=== PATIENT | male | born 1935 | race Caucasian/White ===

== ENCOUNTER → 2018-09-08 12:15 | Outpatient (CLI) | payer MEDICARE, OTHER, SELFPAY ==
[2018-09-08 13:56] LABS: Add Manual Diff / Slide Review NO; Basophils Percent Auto 0.6 % (0-2); Eosinophils Percent Auto 2.5 % (2-4); Hemoglobin 13.5 g/dL (13.5-17.5); Lymphocytes Percent Auto 27.6 % (25-40); Mean Corpuscular Hemoglobin 28.8 PG (26-34); Mean Corpuscular Volume 87.3 fL (80-100); Monocytes Percent Auto 8.2 % (3-14); Neutrophils Absolute Auto 3800 /uL (3000-5900); Neutrophils Percent Auto 61.1 % (50-75); Platelet Count 164 X10^3/uL (150-400); Red Blood Cell Count 4.69 X10^6/uL (4.5-5.9); Red Cell Distribution Width 14.8 % (11.6-14.8); White Blood Cell Count 6.2 X10^3/uL (4.5-11.0)
[2018-09-08 14:28] LABS: Erythrocyte Sedimentation Rate 7 MM/HR (0-15)
[2018-09-08 15:02] LABS: C-Reactive Protein Quant 0.6 mg/dL (<1.0)
== END ==
PROVIDERS: Visit Provider Orthopaedic Surgery
DX: M25.561 Pain in right knee (principal)
CPT/HCPCS: 36415; 85025; 85651; 86140

== ENCOUNTER 2018-09-09 23:05 | Inpatient (IN) | payer MEDICARE, OTHER, SELFPAY ==
[2018-09-09 23:23] VITALS: BP 144/86; PULSE 85; RESP 16; TEMP 36.4; O2SAT 95
[2018-09-09 23:33] VITALS: BP 144/86; PULSE 85; RESP 16; TEMP 36.4; O2SAT 95; BMI 28.3
--- NOTE | 2018-09-09 23:45 | DI.CT.S_ITS ---
PROCEDURE: CT ABDOMEN PELVIS W CON INDICATIONS: distention vomting TECHNIQUE: After the administration of oral and intravenous contrast, 5 mm thick sections acquired from the diaphragms to the symphysis. 5 mm thick coronal and sagittal reformats were performed. For radiation dose reduction, the following was used: automated exposure control, adjustment of mA and/or kV according to patient size. COMPARISON: [facility], CT, L-SPINE WITHOUT CONTRAST, 12/08/2016, 10:47. [facility], CT, ABD/PELVIS W/O CON (PNL), 05/29/2014, 19:58. FINDINGS: Image quality: Excellent. ABDOMEN: Lung bases: Lung bases are clear. Heart size is normal. Solid organs: Liver is normal in size and enhancement. Gallbladder contains a single 6 mm calcified gallstone. Biliary system is non-dilated. Pancreas enhances normally. Spleen is normal in size and enhancement. No adrenal nodules. Kidneys are normal in size and enhancement, without hydronephrosis. Peritoneum and bowel: Stomach and small bowel loops are moderately distended in caliber and normal in wall thickness. No free fluid or air. The colon is not distended. Nodes and vessels: No retroperitoneal or mesenteric adenopathy. Aorta and inferior vena cava are normal in caliber. Miscellaneous: No ventral hernias. PELVIS: Genitourinary: Bladder wall thickness is normal. Miscellaneous: No inguinal hernias or adenopathy. Small bowel distention extends into the pelvis, with a relative reduction in caliber of the right lower quadrant and no mass, volvulus, or intussusception is seen. Sigmoid diverticulosis without acute diverticulitis. Bones: No suspicious bony lesions. No vertebral body compression fractures. Extensive prior spine fusion surgery over the lumbosacral spine and thoracolumbar junction, previously present. IMPRESSION: Small bowel and gastric distention to the degree that a small bowel obstruction or stenosis is present, without identified etiology. As noted there is a transition between relative distention and a more normal caliber of the small bowel at the right lower quadrant. In this circumstance of no identified mass, volvulus, or intussusception adhesion (congenital or acquired) is generally the underlying etiology. A similar small bowel obstruction pattern was present in May of 2014. Extensive prior lumbosacral spine fusion surgery extending across the thoracolumbar junction. Cardiac pacemaking device leads noted over the right heart. Dictated by: Dennis Haddad M.D. on 09/10/2018 at 9:55 Approved by: Dennis Haddad M.D. on 09/10/2018 at 10:02
--- NOTE | 2018-09-09 23:46 | ED.ABDPAIN ---
HPI - Abdominal Pain General Chief Complaint: Abdominal Pain Stated Complaint: cant have bowel movement stomach swelled up Time Seen by Provider: 09/09/18 23:44 Source: patient Mode of arrival: ambulatory Limitations: no limitations History of Present Illness HPI narrative: Patient is an 83-year-old male who presents with abdominal pain and bloating. He said it started this evening around 5 or 6 cm he threw up once on his way over here and now actually feels much better. He said he had a normal bowel movement yesterday. He has a history of an appendectomy. He has not had fever or chills. No chest pain heart palpitations syncopal episodes. MD complaint: abdominal pain Related Data Home Medications Medication Instructions Recorded Confirmed ACETAMINOPHEN 325 mg PO BID #0 11/03/11 09/10/18 ASPIRIN (#ASPIRIN EC) 325 mg PO QDAY #0 11/03/11 09/10/18 DOCUSATE SODIUM (#DOCUSATE SODIUM) 100 mg PO PRN #0 11/03/11 09/10/18 doxazosin 8 mg PO QDAY #0 11/03/11 09/10/18 finasteride 5 mg PO QDAY #0 11/03/11 09/10/18 simvastatin 20 mg PO QDAY #0 11/03/11 09/10/18 Allergies Allergy/AdvReac Type Severity Reaction Status Date / Time No Known Allergies AdvReac Verified 09/10/18 03:26 Review of Systems Review of Systems GENERAL: Denies chills, fatigue, malaise, fever, sweats, travel HEENT: Denies sinus pain, ear pain, sore throat, difficulty swallowing, neck pain RESPIRATORY: Denies dyspnea, cough, wheezing, hemoptysis, sputum. CARDIOVASCULAR: Denies chest pain, palpitations, orthopnea, edema GASTROINTESTINAL: See HPI : Denies dysuria, frequency, incontinence, hematuria, urinary retention, flank pain. MUSCULOSKELETAL: Denies weakness, joint pain, or bony pain SKIN: No rash, no erythema, no pruritus NEUROLOGIC: Denies weakness, dizziness, headache, numbness, change in speech, confusion PSYCHIATRIC: No concerning psychosocial issues. 12 point review of systems is negative except for those stated above and HPI PFSH Medical History Bradycardia (Acute) Hyperlipidemia (Acute) Surgical History Status post appendectomy (Acute) Social History marital status: household members: spouse Smoking Status: Never smoker alcohol intake: never Comment: PCP: base Exam Initial Vital Signs Initial Vital Signs: Vital Signs Temperature 97.6 F 09/09/18 23:23 Pulse Rate 85 09/09/18 23:23 Respiratory Rate 16 09/09/18 23:23 Blood Pressure 144/86 H 09/09/18 23:23 Pulse Oximetry 95 09/09/18 23:23 GENERAL: Alert elderly acute distress HEENT: Head atraumatic,EOMI, pupils reactive PHARYNX: No erythema, no tonsillar exudate, no cervical lymphadenopathy CARDIOVASCULAR: Regular rate and rhythm without murmurs, rubs or gallops. RESPIRATORY: Breath sounds equal bilaterally, no wheezes rales or rhonchi. ABDOMEN: Distension soft, no localization pain very mild pain no guarding or rebound EXTREMITIES: Normal range of motion, no clubbing or edema. Neurovascularly intact NEUROLOGICAL: Alert and oriented x4.Normal gait and speech. Cranial nerves II through XII grossly intact. SKIN: Warm, dry, no laceration, no petechiae, no rashes or lesions. Course Orders Ordered: ED Orders 09/09/18 23:45 CT abdomen pelvis w con Stat 09/09/18 23:50 Complete Blood Count AUTO DIFF Stat Comprehensive Metabolic Panel Stat Lactate (Lactic Acid) Stat Lipase Stat 09/10/18 03:12 Consult to General Surgery Routine Sodium Chloride (Normal Saline 0.9%) 1,000 mls @ 150 mls/hr IV CONT MACARIO Morphine Sulfate (Morphine) 2 mg IV Q4HR PRN PRN Reason: Pain, Moderate (4-6) Ondansetron HCl (Zofran) 4 mg IV Q4HR PRN PRN Reason: Nausea And Vomiting Discontinued Medications Sodium Chloride (Normal Saline 0.9%) 1,000 mls @ 150 mls/hr IV CONT MACARIO Last Infusion: 09/10/18 03:01 Dose: 0 mls/hr Admin: 09/10/18 00:03 Dose: 150 mls/hr Influenza Virus Vaccine (Flu Vaccine) 0.5 ml IM .ONCE ONE Stop: 09/10/18 03:57 Ondansetron HCl (Zofran) 4 mg IV NOW ONE Stop: 09/09/18 23:46 Last Admin: 09/10/18 00:03 Dose: 4 mg Vital Signs - 8 hr 09/09/18 23:23 09/09/18 23:33 09/10/18 03:03 Temperature 97.6 F 97.6 F Pulse Rate 85 85 82 Respiratory Rate 16 16 18 Blood Pressure 144/86 H 154/80 H Blood Pressure [Left Arm] 144/86 H Pulse Oximetry 95 95 98 MDM - Abdominal Pain Lab Data Attestation: I reviewed the patient's lab results. Result diagrams: 09/09/18 23:50 09/09/18 23:50 Lab Results 09/09/18 09/09/18 09/09/18 Range/Units 23:50 23:50 23:50 WBC 13.6 H D (4.5-11.0) X10^3/uL RBC 4.83 (4.5-5.9) X10^6/uL Hgb 13.9 (13.5-17.5) g/dL Hct 42.5 (41-53) % MCV 88.0 (80-100) fL MCH 28.8 (26-34) PG MCHC 32.8 (30-36) % RDW 14.7 (11.6-14.8) % Plt Count 155 (150-400) X10^3/uL Neut % (Auto) 84.8 H D (50-75) % Lymph % (Auto) 7.3 L D (25-40) % [place] % (Auto) 6.3 (3-14) % Eos % (Auto) 1.2 L (2-4) % Baso % (Auto) 0.4 (0-2) % Neut # (Auto) 95155 H (9759-8262) /uL Sodium 142 (137-145) mmol/L Potassium 4.2 (3.4-5.1) mmol/L Chloride 103 (98-107) mmol/L Carbon Dioxide 30 (22-32) mmol/L BUN 24 H (9-20) mg/dL Creatinine 1.40 H (0.66-1.25) mg/dL Estimated GFR 48.6 L (>60) mL/min BUN/Creatinine Ratio 17.1 (6-22) Glucose 161 H (80-110) mg/dL Lactate 1.1 (0.7-2.1) mmol/L Calcium 9.6 (8.4-10.2) mg/dL Total Bilirubin 0.4 (0.2-1.3) mg/dL AST 23 (17-59) IU/L ALT 26 (21-72) IU/L Alkaline Phosphatase 55 (38-126) U/L Total Protein 7.0 (6.3-8.2) g/dL Albumin 4.4 (3.5-5.0) g/dL Globulin 2.6 (1.7-4.1) g/dL Albumin/Globulin Ratio 1.7 (1.0-2.8) Lipase 78 (23-300) U/L Imaging Data CT scan - abdomen: 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 Dilated fluid-filled loops of small bowel with scattered air-fluid levels in a pattern suggesting small bowel obstruction. Changes loya point appears to be in the right upper quadrant where there are at least 2 focal areas of abrupt decreasing caliber. These are best identified on coronal images 24 and 25 and coronal images 20 and 21. Due to position of 1 of the transition point axial image 21 rise a suspicion for possibility of internal herniation. Fluid contents are noted within the colon suggesting gastritis. ECG Data Attestation: I personally reviewed and interpreted this ECG as follows: Interpretation: Sinus rhythm diffuse T-wave inversion in with pacemaker spikes previous EKGs 2016 not present at that time. [facility] Narrative Medical decision making narrative: 02:[address] Bell accepts patient. NG tube is placed. About 600 mL out. Patient does have multiple T-wave inversions in his EKG. His no chest pain completely asymptomatic. He denies previous heart attack said his pacemaker was placed on after a surgery is with a noticed that he had 3 sec pauses. Discharge Plan Departure Patient Disposition: Admitted As Inpatient Clinical Impression: SBO (small bowel obstruction) Discharge Date/Time: 09/10/18 03:00 Interventions: ED Discharge Assessment Last Done: 09/10/18 03:03 Admit Date/Time: 09/10/18 02:43 Admit Provider: Joshua Bell
--- NOTE | 2018-09-09 23:49 | ED_ITS ---
HPI - Abdominal Pain General Chief Complaint: Abdominal Pain Stated Complaint: cant have bowel movement stomach swelled up Time Seen by Provider: 09/09/18 23:44 Source: patient Mode of arrival: ambulatory Limitations: no limitations History of Present Illness HPI narrative: Patient is an 83-year-old male who presents with abdominal pain and bloating. He said it started this evening around 5 or 6 cm he threw up once on his way over here and now actually feels much better. He said he had a normal bowel movement yesterday. He has a history of an appendectomy. He has not had fever or chills. No chest pain heart palpitations syncopal episodes. MD complaint: abdominal pain Related Data Home Medications Medication Instructions Recorded Confirmed ACETAMINOPHEN 325 mg PO BID #0 11/03/11 09/10/18 ASPIRIN (#ASPIRIN EC) 325 mg PO QDAY #0 11/03/11 09/10/18 DOCUSATE SODIUM (#DOCUSATE SODIUM) 100 mg PO PRN #0 11/03/11 09/10/18 doxazosin 8 mg PO QDAY #0 11/03/11 09/10/18 finasteride 5 mg PO QDAY #0 11/03/11 09/10/18 simvastatin 20 mg PO QDAY #0 11/03/11 09/10/18 Allergies Allergy/AdvReac Type Severity Reaction Status Date / Time No Known Allergies AdvReac Verified 09/10/18 03:26 Review of Systems Review of Systems GENERAL: Denies chills, fatigue, malaise, fever, sweats, travel HEENT: Denies sinus pain, ear pain, sore throat, difficulty swallowing, neck pain RESPIRATORY: Denies dyspnea, cough, wheezing, hemoptysis, sputum. CARDIOVASCULAR: Denies chest pain, palpitations, orthopnea, edema GASTROINTESTINAL: See HPI : Denies dysuria, frequency, incontinence, hematuria, urinary retention, flank pain. MUSCULOSKELETAL: Denies weakness, joint pain, or bony pain SKIN: No rash, no erythema, no pruritus NEUROLOGIC: Denies weakness, dizziness, headache, numbness, change in speech, confusion PSYCHIATRIC: No concerning psychosocial issues. 12 point review of systems is negative except for those stated above and HPI PFSH Medical History Bradycardia (Acute) Hyperlipidemia (Acute) Surgical History Status post appendectomy (Acute) Social History marital status: household members: spouse Smoking Status: Never smoker alcohol intake: never Comment: PCP: base Exam Initial Vital Signs Initial Vital Signs: Vital Signs Temperature 97.6 F 09/09/18 23:23 Pulse Rate 85 09/09/18 23:23 Respiratory Rate 16 09/09/18 23:23 Blood Pressure 144/86 H 09/09/18 23:23 Pulse Oximetry 95 09/09/18 23:23 GENERAL: Alert elderly acute distress HEENT: Head atraumatic,EOMI, pupils reactive PHARYNX: No erythema, no tonsillar exudate, no cervical lymphadenopathy CARDIOVASCULAR: Regular rate and rhythm without murmurs, rubs or gallops. RESPIRATORY: Breath sounds equal bilaterally, no wheezes rales or rhonchi. ABDOMEN: Distension soft, no localization pain very mild pain no guarding or rebound EXTREMITIES: Normal range of motion, no clubbing or edema. Neurovascularly intact NEUROLOGICAL: Alert and oriented x4.Normal gait and speech. Cranial nerves II through XII grossly intact. SKIN: Warm, dry, no laceration, no petechiae, no rashes or lesions. Course Orders Ordered: ED Orders 09/09/18 23:45 CT abdomen pelvis w con Stat 09/09/18 23:50 Complete Blood Count AUTO DIFF Stat Comprehensive Metabolic Panel Stat Lactate (Lactic Acid) Stat Lipase Stat 09/10/18 03:12 Consult to General Surgery Routine Sodium Chloride (Normal Saline 0.9%) 1,000 mls @ 150 mls/hr IV CONT MACARIO Morphine Sulfate (Morphine) 2 mg IV Q4HR PRN PRN Reason: Pain, Moderate (4-6) Ondansetron HCl (Zofran) 4 mg IV Q4HR PRN PRN Reason: Nausea And Vomiting Discontinued Medications Sodium Chloride (Normal Saline 0.9%) 1,000 mls @ 150 mls/hr IV CONT MACARIO Last Infusion: 09/10/18 03:01 Dose: 0 mls/hr Admin: 09/10/18 00:03 Dose: 150 mls/hr Influenza Virus Vaccine (Flu Vaccine) 0.5 ml IM .ONCE ONE Stop: 09/10/18 03:57 Ondansetron HCl (Zofran) 4 mg IV NOW ONE Stop: 09/09/18 23:46 Last Admin: 09/10/18 00:03 Dose: 4 mg Vital Signs - 8 hr 09/09/18 23:23 09/09/18 23:33 09/10/18 03:03 Temperature 97.6 F 97.6 F Pulse Rate 85 85 82 Respiratory Rate 16 16 18 Blood Pressure 144/86 H 154/80 H Blood Pressure [Left Arm] 144/86 H Pulse Oximetry 95 95 98 MDM - Abdominal Pain Lab Data Attestation: I reviewed the patient's lab results. Result diagrams: 09/09/18 23:50 09/09/18 23:50 Lab Results 09/09/18 09/09/18 09/09/18 Range/Units 23:50 23:50 23:50 WBC 13.6 H D (4.5-11.0) X10^3/uL RBC 4.83 (4.5-5.9) X10^6/uL Hgb 13.9 (13.5-17.5) g/dL Hct 42.5 (41-53) % MCV 88.0 (80-100) fL MCH 28.8 (26-34) PG MCHC 32.8 (30-36) % RDW 14.7 (11.6-14.8) % Plt Count 155 (150-400) X10^3/uL Neut % (Auto) 84.8 H D (50-75) % Lymph % (Auto) 7.3 L D (25-40) % [place] % (Auto) 6.3 (3-14) % Eos % (Auto) 1.2 L (2-4) % Baso % (Auto) 0.4 (0-2) % Neut # (Auto) 49266 H (4188-8069) /uL Sodium 142 (137-145) mmol/L Potassium 4.2 (3.4-5.1) mmol/L Chloride 103 (98-107) mmol/L Carbon Dioxide 30 (22-32) mmol/L BUN 24 H (9-20) mg/dL Creatinine 1.40 H (0.66-1.25) mg/dL Estimated GFR 48.6 L (>60) mL/min BUN/Creatinine Ratio 17.1 (6-22) Glucose 161 H (80-110) mg/dL Lactate 1.1 (0.7-2.1) mmol/L Calcium 9.6 (8.4-10.2) mg/dL Total Bilirubin 0.4 (0.2-1.3) mg/dL AST 23 (17-59) IU/L ALT 26 (21-72) IU/L Alkaline Phosphatase 55 (38-126) U/L Total Protein 7.0 (6.3-8.2) g/dL Albumin 4.4 (3.5-5.0) g/dL Globulin 2.6 (1.7-4.1) g/dL Albumin/Globulin Ratio 1.7 (1.0-2.8) Lipase 78 (23-300) U/L Imaging Data CT scan - abdomen: 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 Dilated fluid-filled loops of small bowel with scattered air- fluid levels in a pattern suggesting small bowel obstruction. Changes loya point appears to be in the right upper quadrant where there are at least 2 focal areas of abrupt decreasing caliber. These are best identified on coronal images 24 and 25 and coronal images 20 and 21. Due to position of 1 of the transition point axial image 21 rise a suspicion for possibility of internal herniation. Fluid contents are noted within the colon suggesting gastritis. ECG Data Attestation: I personally reviewed and interpreted this ECG as follows: Interpretation: Sinus rhythm diffuse T-wave inversion in with pacemaker spikes previous EKGs 2016 not present at that time. [facility] Narrative Medical decision making narrative: 02:[address] Bell accepts patient. NG tube is placed. About 600 mL out. Patient does have multiple T-wave inversions in his EKG. His no chest pain completely asymptomatic. He denies previous heart attack said his pacemaker was placed on after a surgery is with a noticed that he had 3 sec pauses. Discharge Plan Departure Patient Disposition: Admitted As Inpatient Clinical Impression: SBO (small bowel obstruction) Discharge Date/Time: 09/10/18 03:00 Interventions: ED Discharge Assessment Last Done: 09/10/18 03:03 Admit Date/Time: 09/10/18 02:43 Admit Provider: Joshua Bell
[2018-09-10] VITALS (22 sets, daily range): BP systolic 104–158; BP diastolic 56–88; PULSE 77–93; RESP 8–19; TEMP 36.1–37.2; O2SAT 90–98; BMI 28.3
[2018-09-10] MEDS: ONDANSETRON 4 MG/2 ML INJ IV ×3 (00:03→16:52)
[2018-09-10] MEDS: SODIUM CHLORIDE 0.9% 1,000 ML 150 ML IV ×2 (00:03→08:56)
[2018-09-10 00:08] LABS: Add Manual Diff / Slide Review NO; Basophils Percent Auto 0.4 % (0-2); Eosinophils Percent Auto 1.2 % (2-4); Hematocrit 42.5 % (41-53); Hemoglobin 13.9 g/dL (13.5-17.5); Lymphocytes Percent Auto 7.3 % (25-40); Mean Corpuscular HGB Conc 32.8 % (30-36); Mean Corpuscular Hemoglobin 28.8 PG (26-34); Monocytes Percent Auto 6.3 % (3-14); Neutrophils Absolute Auto 11500 /uL (3000-5900); Neutrophils Percent Auto 84.8 % (50-75); Platelet Count 155 X10^3/uL (150-400); Red Blood Cell Count 4.83 X10^6/uL (4.5-5.9); Red Cell Distribution Width 14.7 % (11.6-14.8); White Blood Cell Count 13.6 X10^3/uL (4.5-11.0)
[2018-09-10 00:21] LABS: Alanine Aminotransferase 26 IU/L (21-72); Albumin 4.4 g/dL (3.5-5.0); Albumin Globulin Ratio 1.7 (1.0-2.8); Alkaline Phosphatase 55 U/L (38-126); Aspartate Aminotransferase 23 IU/L (17-59); BUN Creatinine Ratio 17.1 (6-22); Bilirubin Total 0.4 mg/dL (0.2-1.3); Blood Urea Nitrogen 24 mg/dL (9-20); Calcium 9.6 mg/dL (8.4-10.2); Carbon Dioxide 30 mmol/L (22-32); Chloride 103 mmol/L (98-107); Estimated Glomerular Filt Rate 48.6 mL/min (>60); Globulin 2.6 g/dL (1.7-4.1); Glucose 161 mg/dL (80-110); HEMOLYSIS < 15 (0-50); Lactate (Lactic Acid) 1.1 mmol/L (0.7-2.1); Lipase 78 U/L (23-300); Potassium 4.2 mmol/L (3.4-5.1); Sodium 142 mmol/L (137-145)
--- NOTE | 2018-09-10 04:23 | PC.NURSE ---
Pt. would like to receive his flu vaccine, so this needs to be ordered.
[2018-09-10] MEDS: MORPHINE 2 MG/ML INJ IV ×2 (07:08→08:56)
--- NOTE | 2018-09-10 08:57 | P.HP_ITS ---
History of Present Illness Date Patient Seen: 09/10/18 Time Patient Seen: 08:43 Chief complaint: cant have bowel movement stomach swelled up Narrative: Patient is a gentleman who developed sudden onset of abdominal pain about 14 hr ago. The pain was located across his mid abdomen. He felt like he had gas in cramping pain. His gave him milk of magnesia which he vomited. He vomited en route to the hospital and has not vomited since. He has never had pain like this before. His only abdominal operation was an appendectomy. He reports a normal colonoscopy 2 years ago. The pain seems to come and go. When he arrived at the hospital is feeling better but gradually became worse again. He does not tolerate a lot of medications for pain. 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) Surgical History Status post lumbar spine operation (Chronic) Status post appendectomy (Resolved) Status post cervical spinal fusion (Resolved) Family & Social History Social History: household members spouse Prior Living Arrangements House Safety & Behavioral: Feels Safe in Current Yes Environment Been Physically Hurt or No Threatened By a Person Suicidal Ideation Description None Suicide Plan Description No Plan Tobacco & Substance use: Smoking Status long time former smoker Smoking packs per day 1 alcohol intake former heavy binge drinker Substance Use Type does not use Meds Home Medications Medication Instructions Recorded Confirmed Type ACETAMINOPHEN 325 mg PO BID #0 11/03/11 09/10/18 History ASPIRIN (#ASPIRIN EC) 325 mg PO QDAY #0 11/03/11 09/10/18 History DOCUSATE SODIUM (#DOCUSATE SODIUM) 100 mg PO PRN #0 11/03/11 09/10/18 History doxazosin 8 mg PO QDAY #0 11/03/11 09/10/18 History finasteride 5 mg PO QDAY #0 11/03/11 09/10/18 History simvastatin 20 mg PO QDAY #0 11/03/11 09/10/18 History Allergies Allergy/AdvReac Type Severity Reaction Status Date / Time No Known Allergies AdvReac Verified 09/10/18 03:26 Review of Systems Review of Systems Patient denies visual difficulties no trouble swallowing he lacks teeth. No problems with chest pain or heart disease in the past. No cough cold or asthma. No black or bloody bowel movements. No hematemesis. No seizures or blackouts. No history of kidney stones. No burning when he pees. Has had chronic problems since his joint was replaced on the right the left knee did better. Has had stents placed because of poor blood flow into his legs. He denies having an aortic aneurysm. Exam Vital Signs (past 8 hours): - 09/10/18 03:03 09/10/18 03:05 Temperature 98.0 F Pulse Rate 82 86 Respiratory Rate 18 16 Blood Pressure 154/80 H 158/77 H Pulse Oximetry 98 93 Oxygen Delivery Method Room Air Narrative Exam Narrative: Operative gentleman no apparent distress. His eyes are nonicteric. Pupils small equal round reactive to light. Conjunctivae are pink. Ears without lesion. Oral mucosa is dry is an NG tube in place in the left nares. Is draining brownish dark material. I feel no nodes in the neck or supraclavicular areas. Trachea is midline and mobile. Lungs are clear to auscultation no rales or rhonchi with percussion somewhat hyper resonant. Heart regular rate and rhythm without murmur or gallop. No heave lift or thrill. His abdomen is distended and protuberant. It is soft and the moderate tenderness to moderate palpation across the mid abdomen. 1+ dorsalis pedis pulse bilaterally 2+ radial pulses. he is alert oriented x3. Speech rate and content are appropriate. Affect is appropriate. Objective Labs Result Diagrams: 09/09/18 23:50 09/09/18 23:50 Labs: Laboratory Results - last 24 hr 09/09/18 09/09/18 09/09/18 23:50 23:50 23:50 WBC 13.6 H D RBC 4.83 Hgb 13.9 Hct 42.5 MCV 88.0 MCH 28.8 MCHC 32.8 RDW 14.7 Plt Count 155 Neut % (Auto) 84.8 H D Lymph % (Auto) 7.3 L [place] % (Auto) 6.3 Eos % (Auto) 1.2 L Baso % (Auto) 0.4 Neut # (Auto) 61658 H Sodium 142 Potassium 4.2 Chloride 103 Carbon Dioxide 30 BUN 24 H Creatinine 1.40 H Estimated GFR 48.6 L BUN/Creatinine Ratio 17.1 Glucose 161 H Lactate 1.1 Calcium 9.6 Total Bilirubin 0.4 AST 23 ALT 26 Alkaline Phosphatase 55 Total Protein 7.0 Albumin 4.4 Globulin 2.6 Albumin/Globulin Ratio 1.7 Lipase 78 Assessment & Plan Plan: Assessment/Plan Narrative: Patient is a gentleman with abdominal distension and vomiting and a less than 1 day history of abdominal pain with CT findings consistent with a small-bowel obstruction. His stomach was massively dilated an NG tube was placed. He still has some abdominal pain and tenderness. White count was mildly elevated. His creatinine is 1.4. 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 He also has chronic back issues. Will discuss with my colleague. Will consider either operation or small-bowel follow-through. Quality VTE Deep Vein Thrombosis/Pulmonary Embolism Present on Admission: No
[2018-09-10] MEDS: ENOXAPARIN 40 MG/0.4 ML SYRINGE SUBCUT (10:50)
[2018-09-10] MEDS: PANTOPRAZOLE 40 MG VIAL IV (10:55)
--- NOTE | 2018-09-10 12:07 | PM.PN.1 ---
Subjective Date Patient Seen: 09/10/18 Time Patient Seen: 10:08 Interval history: Patient seen and examined today. Admitted with abdominal pain, nausea, vomiting, and abdominal distention of acute onset yesterday. Continues to feel subjectively distended. No nausea or vomiting since nasogastric tube inserted in the emergency department last night. Denies flatus or bowel movement for approximately 2 days now. Having abdominal pain diffusely but not localized. Describes this mostly is crampy but intermittently sharp in nature. Does not radiate to the back, shoulder, or chest. Denies any chest pain or shortness of breath currently. No subjective fever or chills. Exam Vital Signs (past 8 hours): - 09/10/18 07:40 Temperature 98.1 F Pulse Rate 89 Respiratory Rate 17 Blood Pressure 149/88 H Pulse Oximetry 96 Oxygen Delivery Method Room Air Narrative Exam Narrative: Elderly male in no acute distress lying in bed. Alert oriented x3 Nasogastric tube is collecting dark bilious fluid. There is approximately 300 cc in the canister over the last 2 hr approximately. Regular rate and rhythm Abdomen is markedly distended and tympanitic. He is diffusely tender to palpation with some involuntary guarding in the left lower quadrant. No masses. Objective Labs Result Diagrams: 09/09/18 23:50 09/09/18 23:50 Labs: Laboratory Results - last 24 hr 09/09/18 09/09/18 09/09/18 23:50 23:50 23:50 WBC 13.6 H D RBC 4.83 Hgb 13.9 Hct 42.5 MCV 88.0 MCH 28.8 MCHC 32.8 RDW 14.7 Plt Count 155 Neut % (Auto) 84.8 H D Lymph % (Auto) 7.3 L D [place] % (Auto) 6.3 Eos % (Auto) 1.2 L Baso % (Auto) 0.4 Neut # (Auto) 56176 H Sodium 142 Potassium 4.2 Chloride 103 Carbon Dioxide 30 BUN 24 H Creatinine 1.40 H Estimated GFR 48.6 L BUN/Creatinine Ratio 17.1 Glucose 161 H Lactate 1.1 Calcium 9.6 Total Bilirubin 0.4 AST 23 ALT 26 Alkaline Phosphatase 55 Total Protein 7.0 Albumin 4.4 Globulin 2.6 Albumin/Globulin Ratio 1.7 Lipase 78 Blood Type Antibody Screen 09/10/18 Unknown WBC RBC Hgb Hct MCV MCH MCHC RDW Plt Count Neut % (Auto) Lymph % (Auto) [place] % (Auto) Eos % (Auto) Baso % (Auto) Neut # (Auto) Sodium Potassium Chloride Carbon Dioxide BUN Creatinine Estimated GFR BUN/Creatinine Ratio Glucose Lactate Calcium Total Bilirubin AST ALT Alkaline Phosphatase Total Protein Albumin Globulin Albumin/Globulin Ratio Lipase Blood Type A Positive Antibody Screen Negative I have personally reviewed his CT scan of the abdomen and pelvis. No free air. Findings are consistent with multiple dilated loops of small bowel and air-fluid levels with distal transition point. Diagnosis is most consistent with small-bowel obstruction. Assessment & Plan Plan: Assessment/Plan Narrative: 83-year-old male with acute onset small-bowel obstruction with concerning examination findings and elevated white blood cell count. I therefore recommended urgent laparotomy with lysis of adhesions and potential bowel resection. I discussed the nature of his disease and the technical details of the above operation at length. Risks, benefits, alternatives were explained. Risks including but not limited to anesthesia, cardiopulmonary event, bleeding, need for transfusion, infection, pain, scar, recurrent obstruction, need for ostomy, anastomotic leak, bowel injury, colon injury, bladder injury, liver injury, gastric injury, ureter injury, major vascular injury, intra-abdominal abscess, need for drains, need for further major abdominal surgery were all discussed at length. Questions were answered to his satisfaction, and he voiced understanding. Consent was placed on the chart. We will proceed urgently to the operating room as above today. Quality VTE Deep Vein Thrombosis/Pulmonary Embolism Present on Admission: No
--- NOTE | 2018-09-10 12:12 | P.PN_ITS ---
Subjective Date Patient Seen: 09/10/18 Time Patient Seen: 10:08 Interval history: Patient seen and examined today. Admitted with abdominal pain , nausea, vomiting, and abdominal distention of acute onset yesterday. Continues to feel subjectively distended. No nausea or vomiting since nasogastric tube inserted in the emergency department last night. Denies flatus or bowel movement for approximately 2 days now. Having abdominal pain diffusely but not localized. Describes this mostly is crampy but intermittently sharp in nature. Does not radiate to the back, shoulder, or chest. Denies any chest pain or shortness of breath currently. No subjective fever or chills. Exam Vital Signs (past 8 hours): - 09/10/18 07:40 Temperature 98.1 F Pulse Rate 89 Respiratory Rate 17 Blood Pressure 149/88 H Pulse Oximetry 96 Oxygen Delivery Method Room Air Narrative Exam Narrative: Elderly male in no acute distress lying in bed. Alert oriented x3 Nasogastric tube is collecting dark bilious fluid. There is approximately 300 cc in the canister over the last 2 hr approximately. Regular rate and rhythm Abdomen is markedly distended and tympanitic. He is diffusely tender to palpation with some involuntary guarding in the left lower quadrant. No masses. Objective Labs Result Diagrams: 09/09/18 23:50 09/09/18 23:50 Labs: Laboratory Results - last 24 hr 09/09/18 09/09/18 09/09/18 23:50 23:50 23:50 WBC 13.6 H D RBC 4.83 Hgb 13.9 Hct 42.5 MCV 88.0 MCH 28.8 MCHC 32.8 RDW 14.7 Plt Count 155 Neut % (Auto) 84.8 H D Lymph % (Auto) 7.3 L D [place] % (Auto) 6.3 Eos % (Auto) 1.2 L Baso % (Auto) 0.4 Neut # (Auto) 57595 H Sodium 142 Potassium 4.2 Chloride 103 Carbon Dioxide 30 BUN 24 H Creatinine 1.40 H Estimated GFR 48.6 L BUN/Creatinine Ratio 17.1 Glucose 161 H Lactate 1.1 Calcium 9.6 Total Bilirubin 0.4 AST 23 ALT 26 Alkaline Phosphatase 55 Total Protein 7.0 Albumin 4.4 Globulin 2.6 Albumin/Globulin Ratio 1.7 Lipase 78 Blood Type Antibody Screen 09/10/18 Unknown WBC RBC Hgb Hct MCV MCH MCHC RDW Plt Count Neut % (Auto) Lymph % (Auto) [place] % (Auto) Eos % (Auto) Baso % (Auto) Neut # (Auto) Sodium Potassium Chloride Carbon Dioxide BUN Creatinine Estimated GFR BUN/Creatinine Ratio Glucose Lactate Calcium Total Bilirubin AST ALT Alkaline Phosphatase Total Protein Albumin Globulin Albumin/Globulin Ratio Lipase Blood Type A Positive Antibody Screen Negative I have personally reviewed his CT scan of the abdomen and pelvis. No free air. Findings are consistent with multiple dilated loops of small bowel and air- fluid levels with distal transition point. Diagnosis is most consistent with small-bowel obstruction. Assessment & Plan Plan: Assessment/Plan Narrative: 83-year-old male with acute onset small-bowel obstruction with concerning examination findings and elevated white blood cell count. I therefore recommended urgent laparotomy with lysis of adhesions and potential bowel resection. I discussed the nature of his disease and the technical details of the above operation at length. Risks, benefits, alternatives were explained. Risks including but not limited to anesthesia, cardiopulmonary event, bleeding, need for transfusion, infection, pain, scar, recurrent obstruction, need for ostomy, anastomotic leak, bowel injury, colon injury, bladder injury, liver injury, gastric injury, ureter injury, major vascular injury, intra-abdominal abscess, need for drains, need for further major abdominal surgery were all discussed at length. Questions were answered to his satisfaction, and he voiced understanding. Consent was placed on the chart. We will proceed urgently to the operating room as above today. Quality VTE Deep Vein Thrombosis/Pulmonary Embolism Present on Admission: No
--- NOTE | 2018-09-10 12:12 | PM.PREOP ---
Pre-operative Note Interval Note Pre-op Check: Yes History & Physical Reviewed by Physician, Yes Exam Performed and Yes History & Physical exam performed today by Physician Changes: No H&P completed within 30 days and has changed as indicated here:: Patient seen and examined today. History and physical examination on the chart. Progress note also dictated regarding acute findings. History physical examination has not changed since admission. Proceed with emergent laparotomy today as planned.
[2018-09-10] MEDS: LACTATED RINGERS 1,000 ML 42 ML IV (12:21)
[2018-09-10] MEDS: fentaNYL 100 MCG/2 ML INJ IV (12:29)
--- NOTE | 2018-09-10 12:45 | SUR.HOLD ---
pt remained stable after iv fentanyl given, vss. Pt resting in bed with eyes closed and talking to at bed side. pt taken into the OR at this time by VICKIE Bucio. pt stated pain level was now 6/10.
[2018-09-10] MEDS: CEFOTETAN 2 GM/50 ML PIGGYBACK IV (12:50)
--- NOTE | 2018-09-10 13:16 | SUR.OPER ---
Supine on padded OR bed, head on pillow, arms secured on padded arm boards at <90 degrees abduction, legs uncrossed, safety belt at thigh, tape over blanket over lower legs.
[2018-09-10] MEDS: HYDROMORPHONE 0.5 MG INJ IV ×4 (14:29→14:44)
--- NOTE | 2018-09-10 14:36 | PM.OP.1 ---
Operative Date/Time/Diagnoses Date of procedure: 09/10/18 Time of procedure: 14:36 Pre-op diagnosis: Small-bowel obstruction Post-op diagnosis: other (Distal small-bowel obstruction secondary to adhesions) Procedure & Clinicians Procedure: Exploratory laparotomy with lysis of adhesions Same procedure as scheduled: Yes Indications: 83-year-old male who presented with abdominal pain, distention, nausea, and vomiting. He had had absolutely no bowel function for 2 days. Examination and evaluation were consistent with significant small-bowel obstruction. Urgent laparotomy was recommended. Surgeon: Kalyan Dyer Click Yes if Unassisted: Yes Anesthesia Type: General Operative Notes Findings: 1. Small amount of clear fluid in the pelvis 2. No evidence of perforation, mesenteric ischemia, or infectious process 3. Distinct transition point secondary to adhesions at distal small bowel 4. Adhesions between omentum, sigmoid colon epiploic appendix, and adhesions from prior open appendectomy 5. Nasogastric tube in the stomach 6. No palpable liver masses 7. Significant diverticulosis of the colon but without obvious diverticulitis or other abnormalities. Closure Type: primary Specimen(s): none sent Implants & Drains: None Estimated Blood Loss (mL): 30 Blood products transfused: none Procedure in detail: After obtaining informed consent the patient was brought to the operating room and placed supine on the table. After satisfactory induction of anesthesia a Grajeda catheter was inserted to decompress the urinary bladder. Abdomen was prepped and draped in usual sterile fashion. SCOAP time out was performed per standard protocol. Vertical midline incision was created from above the umbilicus to the suprapubic region with 10 scalpel blade. Bovie was used to achieve hemostasis and carried the dissection through the subcutaneous tissue to the rectus fascia. Fascia was divided in the midline adjacent to the umbilicus and then extended superiorly and inferiorly for the length of the incision. Underlying peritoneum was entered between hemostats under direct visualization. Peritoneum was opened for the length of the incision using the Bovie over the Surgeons inserted fingers. Initial visualization and exploration revealed the above findings. The small bowel was subsequently eviscerated from the ligament of Treitz to the distal ileum. A distinct transition point was found as indicated above. Adhesions were lysed with the Bovie and Metzenbaum scissors. Care was taken to avoid injury to adjacent structures. Bowel was once again meticulously examined from the ligament of Treitz to the terminal ileum at the ileocecal valve. Cecum was normal. The entire small bowel was completely viable with no evidence of ischemia, injury, or remaining obstruction. Bowel was replaced into its usual anatomic position covered by the omentum. Abdomen was irrigated with sterile saline solution which was suctioned from the abdomen and noted to be clear. Fascia was closed with 2 individual running 1. Prolene sutures tied in the midline. Subcutaneous tissue was irrigated and noted to be hemostatic. Skin was closed with jose. Sterile dressing was applied. Anesthesia was reversed and patient extubated in the operating room. He was taken recovery in stable condition. Complications: none Condition: stable Disposition: PACU Plan for aftercare: 1. Return to acute Care Surgical unit for ongoing convalescence
--- NOTE | 2018-09-10 14:45 | PC.NURSE ---
09/10 1400: pt alert and oriented x4, VSS on RA, complains of abdominal pain and nasal pain from the NG tube, minimally controlled by PRN IV analgesic orders. NPO maintained, [id number] gastric output via NG tube. Abdomen distended, tender with generalized discomfort. Surgeon confirmed surgery today, down to OR by 1300. at bedside and involved in care.
--- NOTE | 2018-09-10 15:00 | CM.DANOTE ---
Discharge Planning/Care Management DCP: assessment: Case received and met briefly this morning 0830 with pt. Introduced self and role. Pt is an 83 year old male who admitted 0243 to care of General Surgery team. Payer: Medicare and [facility] PCP: [facility]: assigned PCP (trent). Pt was found looking uncomfortable, NG to suction in place and draining dark fluid. He was seen later by Dr. Dyer and then taken to surgery where an exploratory Lap/KALEN has just been completed. He is expected to return to room 227. P: will be following as POC unfolds to assist with d/c issues and options as they arise. CM Discharge Assessment Start: 09/10/18 14:59 Freq: Status: Active Protocol: Document 09/10/18 15:00 ITV (Rec: 09/10/18 15:00 ITV [id number]) Discharge Planning Assessment History Provided By Patient Medical Record Prior Living Arrangements House Household Members spouse Whiteboard Updated in Patient Room with Yes name and ext. # of Street Department Dispatcher Review Status In Process Next Review Type Continued Stay Review
[2018-09-10] MEDS: SODIUM CHLORIDE 0.9% 1,000 ML 125 ML IV (16:51)
--- NOTE | 2018-09-10 18:52 | DI.RAD.S_ITS ---
PROCEDURE: XR CHEST 1V INDICATIONS: NG tube placement verification TECHNIQUE: One view of the chest was acquired. COMPARISON: [facility], , CHEST 2 VIEW, 12/30/2015, 14:01. FINDINGS: Surgical changes and devices: Cervical fixation plates, pacemaker and nasogastric tube are noted. Nasogastric tube demonstrates distal tip projecting below the left hemidiaphragm. Lungs and pleura: There is a mild left effusion. Mild increased pulmonary vascularity. Mediastinum: Mediastinal contours appear normal. Heart size is normal. Bones and chest wall: No suspicious bony lesions. Overlying soft tissues appear unremarkable. IMPRESSION: Nasogastric tube as above. Mild left effusion with increased vascularity suggestive of edema. Dictated by: Dana Membreno M.D. on 09/10/2018 at 19:35 Approved by: Dana Membreno M.D. on 09/10/2018 at 19:36
--- NOTE | 2018-09-10 22:11 | PC.NURSE ---
Addendum entered by Kulwant Patel R.N. 09/10/18 23:04: please disregard note placed at 2553, regarding call from Dr. Laguna this note was written on wrong pt. Correct pt's chart has been updated w/ info. Original Note: Addendum entered by Kulwant Patel R.N. 09/10/18 22:59: call from ICU regarding widening QRS seg. This nurse checked on patient, patient we lying in bed, reports feeling fine other than pain in abd. No chest discomfort noted, breathing WNL. ICU called back and advised per Stephanie RN provider doesn't nec. need to be notified tonight but should be made aware of 2 minute run of what ICU is calling Accelerated Yo-Ventricular rythum. Rate 80's. Note made and will pass off to oncoming nurse. Original Note: Addendum entered by Kulwant Patel R.N. 09/10/18 22:43: Call from Dr. Laguna, patient's MRI came back w/ nothing urgent or nec. for surgery. Per Dr. Laguna patient is to work w/ PT tomorrow and pending approval of stability and safety from PT, patient can d/c tomorrow. Pt to f/u in office w/ Dr. Laguna in 1wk, keep cervical collar on at all time, okay to remove for showering and for comfort for short stints of time. Original Note: Pt A&0 x3 pleasant and cooperative w/ staff and able to make needs known. Pt c/o bloating, tightness and fullness in abd. pt is currently set up w/ interm. suction to NG tube. NG had nothing out for the first 3.5 hours of patient being on floor. Placement was check by pushing air through NG tube and auscultating abd. placement was noted to be in abd. When aspirated nothing was noted to come up from NG. This nurse placed blue cap on end of blue tubing and a call placed to Dr. Dyer in OR to inform of situation. Gomez advised to order Chest xray for placement. Gomez called back around 2200 to inform that occording to xray tube is in proper placing and advised to cap w/ blue cap (which had already been done). NG tube was noted to start to suction some brown bile from abd. approx. 1 hour post air auscultation and aspiration by this nurse. Very little is being drained into container but fluid is present in tubing and container. Gomez is aware.
[2018-09-10] MEDS: HYDROMORPHONE PCA 6 MG/30 ML PCA.VIAL 1 MG IV (22:37)
[2018-09-11] VITALS (9 sets, daily range): BP systolic 135–159; BP diastolic 67–85; PULSE 87–94; RESP 18; TEMP 36.6–37.4; O2SAT 92–98
[2018-09-11] MEDS: SODIUM CHLORIDE 0.9% 1,000 ML 125 ML IV ×2 (00:56→08:58)
--- NOTE | 2018-09-11 03:15 | PC.NURSE ---
NOC Patient reporting abdominal distention, 4/10 pain in abdomen at rest and the pain can jump to a 9/10 with movement. pt using MANAGER OF DIGITAL. On 3L 02 with capnography at 98%, decreased O2 to 2L and pt satting in mid-90's, but C02 dropped setting off capnography alarm. Patient is very uncomfortable in bed and repositioning often. NS running at 125/hr. Grajeda draining to gravity.
[2018-09-11 05:37] LABS: Add Manual Diff / Slide Review NO; Basophils Percent Auto 0.2 % (0-2); Eosinophils Percent Auto 0.2 % (2-4); Hematocrit 37.6 % (41-53); Hemoglobin 12.4 g/dL (13.5-17.5); Lymphocytes Percent Auto 9.1 % (25-40); Mean Corpuscular HGB Conc 32.9 % (30-36); Mean Corpuscular Hemoglobin 28.7 PG (26-34); Mean Corpuscular Volume 87.2 fL (80-100); Neutrophils Absolute Auto 10200 /uL (3000-5900); Neutrophils Percent Auto 80.5 % (50-75); Platelet Count 146 X10^3/uL (150-400); Red Blood Cell Count 4.31 X10^6/uL (4.5-5.9); Red Cell Distribution Width 15.1 % (11.6-14.8); White Blood Cell Count 12.7 X10^3/uL (4.5-11.0)
[2018-09-11 05:46] LABS: BUN Creatinine Ratio 16.9 (6-22); Blood Urea Nitrogen 22 mg/dL (9-20); Calcium 8.2 mg/dL (8.4-10.2); Carbon Dioxide 30 mmol/L (22-32); Chloride 104 mmol/L (98-107); Glucose 136 mg/dL (80-110); HEMOLYSIS < 15 (0-50); Potassium 4.5 mmol/L (3.4-5.1); Sodium 143 mmol/L (137-145)
[2018-09-11] MEDS: HYDROMORPHONE PCA 6 MG/30 ML PCA.VIAL IV ×2 (06:44→22:25)
[2018-09-11] MEDS: ENOXAPARIN 40 MG/0.4 ML SYRINGE SUBCUT (08:58)
[2018-09-11] MEDS: PANTOPRAZOLE 40 MG VIAL IV (08:58)
--- NOTE | 2018-09-11 10:40 | PT.IIE ---
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 indoor ambulation without device, modified indep . with 4WW for long distances Activities of Daily Living and IADL's indep. I/ADLs Social History Household Members spouse Living Arrangements House Number of Floors (Floors) One Floor Number of Stairs To Enter/Railing? 3 SE with L ascending rail Home Environment High Toilet Walk in Shower Home Equipment Four Wheel Walker M2 PT-IP Current Condition Start: 09/11/18 11:49 Freq: NEEDED Status: Active Protocol: Document 09/11/18 10:40 RCC (Rec: 09/11/18 12:12 RCC [id number]) Physical Therapy Current Condition Current Condition Evaluation Date 09/11/18 Treatment Diagnosis Ex. lap. with lysis of adhesions 09/10/18, impaired mobility and gait Precautions Abdominal Surgery Precautions Log Roll Lifting Restrictions Gait Belt above Incisional Area Other Precautions NG tube, supplemental O2, IV/ LAST MODEL DEPARTMENT SUPERVISOR M3 PT-IP Subjective Start: 09/11/18 11:49 Freq: NEEDED Status: Active Protocol: Document 09/11/18 10:40 RCC (Rec: 09/11/18 12:12 RCC [id number]) Subjective Physical Therapy Visit Type Type Initial Evaluation Visit Start Time 10:10 Visit Stop Time 10:40 Total Visit Minutes 30 Notes assisted by GERONTOLOGY AIDE with IV lines Number of SUPERVISOR HARDBOARD Visits 0 Physical Therapy Visit Comments Patient Comments pt states that he is having the same amount of pain in his abdomen regardless of what he does. Patient Goals to get moving and better. Therapy Pain Assessment Location Abdomen Intensity 4 Scale Used Numeric (1 - 10) M4 PT-IP Mobility and Gait Start: 09/11/18 11:49 Freq: NEEDED Status: Active Protocol: Document 09/11/18 10:40 RCC (Rec: 09/11/18 12:12 [facility] [id number]) PT-Bed Mobility Assessment Rolling Type of Rolling Log Rolling Level of Assist Moderate Assistance 1 Person Assistance Supine to Sit Supine to Sit Moderate Assistance 1 Person Assistance Scooting Scooting to Edge of Bed Contact Guard Assistance PT-Transfer Assessment Sit to and From Stand Sit to and from Stand Standby Assistance Equipment Transfer Assistive Device Front Wheeled Walker Transfers Transfer Destination Chair Transfer Technique Stand Step Pivot Transfer Ability Level of Assist Standby Assistance Gait Assessment Gait Gait Assistance Required: Standby Assistance Distance (Feet) 100 Assistive Devices Assistive Device Front Wheeled Walker Gait Deviations General Gait Pattern Decreased Stride Length Decreased Feet Clearance Factors Limiting Gait Function Factors Limiting Gait Function Decreased Activity Tolerance Pain PT-Balance Assessment Sitting Balance and Reactions Static Sitting Balance Ability Good Dynamic Sitting Balance Ability Fair Standing Balance and Reactions Static Standing Balance Ability Fair Dynamic Standing Balance Ability Fair Device Used FWW M5 PT-IP Objective Assessments Start: 09/11/18 11:49 Freq: NEEDED Status: Active Protocol: Document 09/11/18 10:40 RCC (Rec: 09/11/18 12:12 [facility] [id number]) Orientation Orientation/Cognition Level of Alertness Alert Strength Comments Strength Comments strength not tested due to surgery yesterday but at least 3+/5 gross major LE mm. Coordination Assessment Gross Coordination Gross Coordination WNL Sensation Assessment Sensation Gross Sensation WNL M6 PT-IP Treatment Start: 09/11/18 11:49 Freq: NEEDED Status: Active Protocol: Document 09/11/18 10:40 RCC (Rec: 09/11/18 12:12 [facility] [id number]) Physical Therapy Treatment Education Education Provided Precautions Safety M7 PT-IP Assessment and Plan Start: 09/11/18 11:49 Freq: NEEDED Status: Active Protocol: Document 09/11/18 10:40 RCC (Rec: 09/11/18 12:12 RCC [id number]) PT Summary Assessment and Plan Potential Rehabilitation Potential Good Status of Condition at Evaluation Evolving Summary Impairments Pain Balance Bed Mobility Transfers Gait Activity Tolerance Assessment Summary POD #1 exploratory laparotomy with lysis of adhesion. Pt tolerated ambulation very well with FWW, was maintained on 3 -L O2 during this time with O2 saturation WNL. He requires physical assistance with bed mobility and will require ongoing training to progress toward indep bed mobility, stair training, and progression of gait tolerance. Goals Bed Mobility Goal Standby Assistance Transfer Goal Standby Assistance Gait Goal Standby Assistance Four Wheel Walker Gait Distance 150 Other Goals up/down 3 steps with L ascending rail and CGA Days to Meet Goals 3 Frequency of Treatment Frequency Of Treatment Twice a Day Treatment Plan Physical Therapy Treatment Plan Bed Mobility Training Transfer Training Gait Training Post Op Education Discharge Planning Neuromuscular Re-ed Recommendations To Nursing Amount of Assist Needed 1 Person Assist Discharge Recommendations PT Discharge Recommendations Home with Assistance Home Health
--- NOTE | 2018-09-11 12:14 | PM.PN.1 ---
Subjective Date Patient Seen: 09/11/18 Time Patient Seen: 12:14 Interval history: Complaining of abdominal distention and mild bilateral lower quadrant abdominal pain which is controlled with CUSTODIAL MANAGER. No chest pain or shortness of breath. However, he remains on 3 L nasal cannula oxygen. He finds it difficult to take deep inspirations due to abdominal distention. No flatus or bowel movement. Grajeda catheter remains in place draining clear urine. Denies any subjective fever or chills. Exam Vital Signs (past 8 hours): - 09/11/18 08:53 Pulse Oximetry 98 Fraction of Inspired Oxygen 28 Oxygen Delivery Method Nasal Cannula Oxygen Flow Rate 2 Narrative Exam Narrative: Elderly male in no acute distress sitting comfortably in bedside chair. He has just completed ambulating in the hallways with assistance. is at the bedside. Patient is alert oriented x3 No fevers and otherwise hemodynamically stable. Telemetry shows sinus rhythm with his pacemaker. Regular rate and rhythm. No wheezes Abdomen remains markedly distended and tympanitic consistent with postoperative ileus. Dressing is clean, dry, and intact. Nasogastric tube remains in place draining approximately 200 cc of bilious fluid this morning. Extremities show no clubbing, cyanosis, or edema Objective Labs Result Diagrams: 09/11/18 05:05 09/11/18 05:05 Labs: Laboratory Results - last 24 hr 09/11/18 09/11/18 05:05 05:05 WBC 12.7 H RBC 4.31 L Hgb 12.4 L Hct 37.6 L MCV 87.2 MCH 28.7 MCHC 32.9 RDW 15.1 H Plt Count 146 L Neut % (Auto) 80.5 H Lymph % (Auto) 9.1 L [place] % (Auto) 10.0 Eos % (Auto) 0.2 L Baso % (Auto) 0.2 Neut # (Auto) 67381 H Sodium 143 Potassium 4.5 Chloride 104 Carbon Dioxide 30 BUN 22 H Creatinine 1.30 H Estimated GFR 53.0 L BUN/Creatinine Ratio 16.9 Glucose 136 H Calcium 8.2 L Assessment & Plan Plan: Assessment/Plan Narrative: 83-year-old male stable status post exploratory laparotomy with lysis of adhesions for small-bowel obstruction now with postoperative ileus. The ileus is not unanticipated. In fact, I anticipate he will have a prolonged ileus given the nature of his obstruction. Continue nasogastric tube. Discontinue Grajeda. Changed to maintenance IV fluids at decreased rate. Continue CUSTODIAL MANAGER as this appears to be functioning well for him currently. Ambulate with assistance as much as possible. Strongly encouraged incentive spirometry and pulmonary toilet. If ileus continues without evidence of any significant resolution then he may likely require PICC line placement and TPN support. Can discontinue telemetry now as he has been completely stable for 24 hr since surgery. All the above discussed with him in detail. Questions answered to his satisfaction, and he voiced understanding. Orders were written. Quality VTE Deep Vein Thrombosis/Pulmonary Embolism Present on Admission: No
--- NOTE | 2018-09-11 12:18 | P.PN_ITS ---
Subjective Date Patient Seen: 09/11/18 Time Patient Seen: 12:14 Interval history: Complaining of abdominal distention and mild bilateral lower quadrant abdominal pain which is controlled with NEW CAR MAKE READY WORKER. No chest pain or shortness of breath. However, he remains on 3 L nasal cannula oxygen. He finds it difficult to take deep inspirations due to abdominal distention. No flatus or bowel movement. Grajeda catheter remains in place draining clear urine. Denies any subjective fever or chills. Exam Vital Signs (past 8 hours): - 09/11/18 08:53 Pulse Oximetry 98 Fraction of Inspired Oxygen 28 Oxygen Delivery Method Nasal Cannula Oxygen Flow Rate 2 Narrative Exam Narrative: Elderly male in no acute distress sitting comfortably in bedside chair. He has just completed ambulating in the hallways with assistance. is at the bedside. Patient is alert oriented x3 No fevers and otherwise hemodynamically stable. Telemetry shows sinus rhythm with his pacemaker. Regular rate and rhythm. No wheezes Abdomen remains markedly distended and tympanitic consistent with postoperative ileus. Dressing is clean, dry, and intact. Nasogastric tube remains in place draining approximately 200 cc of bilious fluid this morning. Extremities show no clubbing, cyanosis, or edema Objective Labs Result Diagrams: 09/11/18 05:05 09/11/18 05:05 Labs: Laboratory Results - last 24 hr 09/11/18 09/11/18 05:05 05:05 WBC 12.7 H RBC 4.31 L Hgb 12.4 L Hct 37.6 L MCV 87.2 MCH 28.7 MCHC 32.9 RDW 15.1 H Plt Count 146 L Neut % (Auto) 80.5 H Lymph % (Auto) 9.1 L [place] % (Auto) 10.0 Eos % (Auto) 0.2 L Baso % (Auto) 0.2 Neut # (Auto) 97545 H Sodium 143 Potassium 4.5 Chloride 104 Carbon Dioxide 30 BUN 22 H Creatinine 1.30 H Estimated GFR 53.0 L BUN/Creatinine Ratio 16.9 Glucose 136 H Calcium 8.2 L Assessment & Plan Plan: Assessment/Plan Narrative: 83-year-old male stable status post exploratory laparotomy with lysis of adhesions for small-bowel obstruction now with postoperative ileus. The ileus is not unanticipated. In fact, I anticipate he will have a prolonged ileus given the nature of his obstruction. Continue nasogastric tube. Discontinue Grajeda. Changed to maintenance IV fluids at decreased rate. Continue NEW CAR MAKE READY WORKER as this appears to be functioning well for him currently. Ambulate with assistance as much as possible. Strongly encouraged incentive spirometry and pulmonary toilet. If ileus continues without evidence of any significant resolution then he may likely require PICC line placement and TPN support. Can discontinue telemetry now as he has been completely stable for 24 hr since surgery. All the above discussed with him in detail. Questions answered to his satisfaction, and he voiced understanding. Orders were written. Quality VTE Deep Vein Thrombosis/Pulmonary Embolism Present on Admission: No
[2018-09-11] MEDS: DEXTROSE 5%-NS W/KCL 20MEQ 1,000 ML 100 MEQ IV ×2 (12:19→22:24)
--- NOTE | 2018-09-11 15:30 | PT.IPTN ---
Current Diagnoses Unspecified intestinal obstruction, unspecified as to partial versus complete obstruction (09/10/18) Surgery Performed Operation Date: 09/10/18 16:00 Actual Procedures p Exploratory Laparotomy LYSIS OF ADHESION - Kalyan Dyer MD Physical Therapy Treatment Note M2 PT-IP Current Condition Start: 09/11/18 11:49 Freq: NEEDED Status: Active Protocol: Document 09/11/18 15:30 RCC (Rec: 09/11/18 16:54 RCC [id number]) Physical Therapy Current Condition Current Condition Evaluation Date 09/11/18 Treatment Diagnosis Ex. lap. with lysis of adhesions 09/10/18, impaired mobility and gait Precautions Abdominal Surgery Precautions Log Roll Lifting Restrictions Gait Belt above Incisional Area Other Precautions NG tube, supplemental O2, IV/ SENIOR SOFTWARE QA ENGINEER M3 PT-IP Subjective Start: 09/11/18 11:49 Freq: NEEDED Status: Active Protocol: Document 09/11/18 15:30 RCC (Rec: 09/11/18 16:54 RCC [id number]) Subjective Physical Therapy Visit Type Type Treatment Note Visit Start Time 15:02 Visit Stop Time 15:30 Total Visit Minutes 28 Physical Therapy Visit Comments Patient Comments pt agreeable to get OOB. M4 PT-IP Mobility and Gait Start: 09/11/18 11:49 Freq: NEEDED Status: Active Protocol: Document 09/11/18 15:30 RCC (Rec: 09/11/18 16:54 RCC [id number]) PT-Bed Mobility Assessment Rolling Type of Rolling Log Rolling Level of Assist Minimal Assistance Moderate Assistance 1 Person Assistance Supine to Sit Supine to Sit Minimal Assistance 1 Person Assistance Sit to Supine Sit to Supine Moderate Assistance 1 Person Assistance Scooting Scooting to Edge of Bed Contact Guard Assistance PT-Transfer Assessment Sit to and From Stand Sit to and from Stand Standby Assistance Equipment Transfer Assistive Device Front Wheeled Walker Transfers Transfer Destination Bed Transfer Technique Stand Step Pivot Transfer Ability Level of Assist Standby Assistance Comments Mobility Comments Refused gait belt. Gait Assessment Gait Gait Assistance Required: Standby Assistance Distance (Feet) 200 Assistive Devices Assistive Device Front Wheeled Walker Gait Deviations General Gait Pattern Decreased Stride Length Decreased Feet Clearance Flexed Trunk Factors Limiting Gait Function Factors Limiting Gait Function Decreased Activity Tolerance Pain Comments Gait Comments on 3-L O2, O2 saturation 92-95 % during session. M5 PT-IP Objective Assessments Start: 09/11/18 11:49 Freq: NEEDED Status: Active Protocol: Document 09/11/18 10:40 RCC (Rec: 09/11/18 12:12 RCC [id number]) Orientation Orientation/Cognition Level of Alertness Alert Strength Comments Strength Comments strength not tested due to surgery yesterday but at least 3+/5 gross major LE mm. Coordination Assessment Gross Coordination Gross Coordination WNL Sensation Assessment Sensation Gross Sensation WNL M6 PT-IP Treatment Start: 09/11/18 11:49 Freq: NEEDED Status: Active Protocol: Document 09/11/18 10:40 RCC (Rec: 09/11/18 12:12 RCC [id number]) Physical Therapy Treatment Education Education Provided Precautions Safety M7 PT-IP Assessment and Plan Start: 09/11/18 11:49 Freq: NEEDED Status: Active Protocol: Document 09/11/18 15:30 RCC (Rec: 09/11/18 16:54 RCC [id number]) PT Summary Assessment and Plan Summary Assessment Summary POD #1. Pt able to increase gait distance, utilizing a FWW . Plan for trial with pt's 4WW when it is here at the hospital. He continues to require moderate assistance to get into bed, and min assist to get out of bed, which is too heavy for his to assist at this point. Expect pt to continue to progress, will see about how pain is controlled when not on SENIOR SOFTWARE QA ENGINEER. Goals Bed Mobility Goal Standby Assistance Transfer Goal Standby Assistance Gait Goal Standby Assistance Four Wheel Walker Gait Distance 150 Other Goals up/down 3 steps with L ascending rail and CGA Days to Meet Goals 3 Frequency of Treatment Frequency Of Treatment Twice a Day Treatment Plan Other Recommendations and Next Treatment 4WW trial, prog. log roll, CG Focus training and stairs prior to d /c. Recommendations To Nursing Amount of Assist Needed 1 Person Assist Discharge Recommendations PT Discharge Recommendations Home with Assistance Home Health
[2018-09-12] VITALS (9 sets, daily range): BP systolic 151–178; BP diastolic 76–86; PULSE 80–88; RESP 17–19; TEMP 36.9–37.6; O2SAT 93–96
--- NOTE | 2018-09-12 03:13 | PC.NURSE ---
second shift supervisor: 0300 Pt up to ambulate halls with 1PA FWW. NG clamped. Denies nausea when back in bed. NG draining dark green/brown drainage. Using NUCLEAR REACTOR ENGINEER for pain. BT+ and per pt abdomen feels less distended.
[2018-09-12] MEDS: HYDROMORPHONE PCA 6 MG/30 ML PCA.VIAL IV ×3 (06:26→22:12)
[2018-09-12] MEDS: DEXTROSE 5%-NS W/KCL 20MEQ 1,000 ML 100 MEQ IV ×2 (08:46→19:14)
--- NOTE | 2018-09-12 12:21 | PT.IPTN ---
Current Diagnoses Unspecified intestinal obstruction, unspecified as to partial versus complete obstruction (09/10/18) Surgery Performed Operation Date: 09/10/18 16:00 Actual Procedures p Exploratory Laparotomy LYSIS OF ADHESION - Kalyan Dyer MD Physical Therapy Treatment Note M2 PT-IP Current Condition Start: 09/11/18 11:49 Freq: NEEDED Status: Active Protocol: Document 09/11/18 15:30 RCC (Rec: 09/11/18 16:54 RCC [id number]) Physical Therapy Current Condition Current Condition Evaluation Date 09/11/18 Treatment Diagnosis Ex. lap. with lysis of adhesions 09/10/18, impaired mobility and gait Precautions Abdominal Surgery Precautions Log Roll Lifting Restrictions Gait Belt above Incisional Area Other Precautions NG tube, supplemental O2, IV/ HOUSE STEWARD/STEWARDESS M3 PT-IP Subjective Start: 09/11/18 11:49 Freq: NEEDED Status: Active Protocol: Document 09/12/18 09:35 CLB (Rec: 09/12/18 12:21 CLB [id number]) Subjective Physical Therapy Visit Type Type Treatment Note Visit Start Time 09:35 Visit Stop Time 10:00 Total Visit Minutes 25 Number of KNOTTING MACHINE OPERATOR Visits 1 Physical Therapy Visit Comments Patient Comments Pt eager to get up and walk. M4 PT-IP Mobility and Gait Start: 09/11/18 11:49 Freq: NEEDED Status: Active Protocol: Document 09/12/18 09:35 CLB (Rec: 09/12/18 12:21 CLB [id number]) PT-Bed Mobility Assessment Rolling Type of Rolling Log Rolling Level of Assist Contact Guard Assistance Supine to Sit Supine to Sit Minimal Assistance 1 Person Assistance Scooting Scooting to Edge of Bed Contact Guard Assistance PT-Transfer Assessment Sit to and From Stand Sit to and from Stand Standby Assistance Equipment Transfer Assistive Device 4 Wheeled Walker Transfers Transfer Destination Chair Transfer Technique Stand Step Pivot Transfer Ability Level of Assist Standby Assistance Comments Mobility Comments Refused gait belt. Gait Assessment Gait Gait Assistance Required: Standby Assistance Distance (Feet) 500 Assistive Devices Assistive Device Front Wheeled Walker Gait Deviations General Gait Pattern Flexed Trunk Comments Gait Comments Pt on 1/2L with O2 saturation 92-95% during gait. Pt used HOUSE STEWARD/STEWARDESS pump before and after tx. M5 PT-IP Objective Assessments Start: 09/11/18 11:49 Freq: NEEDED Status: Active Protocol: Document 09/11/18 10:40 RCC (Rec: 09/11/18 12:12 RCC [id number]) Orientation Orientation/Cognition Level of Alertness Alert Strength Comments Strength Comments strength not tested due to surgery yesterday but at least 3+/5 gross major LE mm. Coordination Assessment Gross Coordination Gross Coordination WNL Sensation Assessment Sensation Gross Sensation WNL M6 PT-IP Treatment Start: 09/11/18 11:49 Freq: NEEDED Status: Active Protocol: Document 09/11/18 10:40 RCC (Rec: 09/11/18 12:12 RCC [id number]) Physical Therapy Treatment Education Education Provided Precautions Safety M7 PT-IP Assessment and Plan Start: 09/11/18 11:49 Freq: NEEDED Status: Active Protocol: Document 09/12/18 09:35 CLB (Rec: 09/12/18 12:21 CLB [id number]) PT Summary Assessment and Plan Summary Impairments Pain Balance Bed Mobility Transfers Gait Activity Tolerance Assessment Summary POD #2 pt able to increase gait with his 4WW to 500+ ft. Pt able to increase stride length and foot clearance but needs cues for posture and pace. Goals Bed Mobility Goal Standby Assistance Transfer Goal Standby Assistance Gait Goal Standby Assistance Four Wheel Walker Gait Distance 150 Other Goals up/down 3 steps with L ascending rail and CGA Days to Meet Goals 3 Frequency of Treatment Frequency Of Treatment Twice a Day Treatment Plan Other Recommendations and Next Treatment Progress log roll, CG training Focus and stairs Recommendations To Nursing Amount of Assist Needed 1 Person Assist Discharge Recommendations PT Discharge Recommendations Home with Assistance Home Health
[2018-09-12] MEDS: ENOXAPARIN 40 MG/0.4 ML SYRINGE SUBCUT (12:24)
[2018-09-12] MEDS: PANTOPRAZOLE 40 MG VIAL IV (12:24)
--- NOTE | 2018-09-12 12:29 | PC.NURSE ---
Am shift Pt is up ambulating around nursing station multiple times with INK JET OPERATOR and PT, reporting controlled pain with CHIEF JAILER and denies n/v. ABD distended and tender to palpation, Pt reports softer than previous day, Per Pt. Denies flatus, sore throat call into Dr montes for cepacol orders. Rec'd.
[2018-09-12] MEDS: BENZOCAINE/MENTHOL 1 LOZ PKT 1 EACH PO (12:45)
--- NOTE | 2018-09-12 14:34 | PC.NURSE ---
Right inner buttock has redness, rash-like, blanchable, skin intact. Barrier cream applied. Also to Left mid back over lower rib area, large pink discoloration that is blanchable. Pt's states pt sees complaint analyst for this skin issues with no final determination of cause. Discoloration is intermittent. Reported to Primary RN.
--- NOTE | 2018-09-12 15:23 | PT.IPTN ---
Current Diagnoses Unspecified intestinal obstruction, unspecified as to partial versus complete obstruction (09/10/18) Surgery Performed Operation Date: 09/10/18 16:00 Actual Procedures p Exploratory Laparotomy LYSIS OF ADHESION - Kalyan Dyer MD Physical Therapy Treatment Note M2 PT-IP Current Condition Start: 09/11/18 11:49 Freq: NEEDED Status: Active Protocol: Document 09/11/18 15:30 RCC (Rec: 09/11/18 16:54 RCC [id number]) Physical Therapy Current Condition Current Condition Evaluation Date 09/11/18 Treatment Diagnosis Ex. lap. with lysis of adhesions 09/10/18, impaired mobility and gait Precautions Abdominal Surgery Precautions Log Roll Lifting Restrictions Gait Belt above Incisional Area Other Precautions NG tube, supplemental O2, IV/ SHIPFITTER M3 PT-IP Subjective Start: 09/11/18 11:49 Freq: NEEDED Status: Active Protocol: Document 09/12/18 14:05 CLB (Rec: 09/12/18 15:21 CLB [id number]) Subjective Physical Therapy Visit Type Type Treatment Note Visit Start Time 14:05 Visit Stop Time 14:30 Total Visit Minutes 25 Number of DIRECTOR PROPERTY Visits 2 Physical Therapy Visit Comments Patient Comments Pt eager to get up to trial stairs and walk. Patient Goals to go home. M4 PT-IP Mobility and Gait Start: 09/11/18 11:49 Freq: NEEDED Status: Active Protocol: Document 09/12/18 14:05 CLB (Rec: 09/12/18 15:21 CLB [id number]) PT-Bed Mobility Assessment Rolling Type of Rolling Log Rolling Level of Assist Contact Guard Assistance Supine to Sit Supine to Sit Minimal Assistance 1 Person Assistance Scooting Scooting to Edge of Bed Contact Guard Assistance PT-Transfer Assessment Sit to and From Stand Sit to and from Stand Standby Assistance Equipment Transfer Assistive Device Gait Belt 4 Wheeled Walker Transfers Transfer Destination Bed Transfer Technique Stand Step Pivot Transfer Ability Level of Assist Standby Assistance Comments Mobility Comments Pt agreed to wear GB for stair training. Gait Assessment Gait Gait Assistance Required: Standby Assistance Distance (Feet) 500 Assistive Devices Assistive Device Front Wheeled Walker Gait Deviations General Gait Pattern Flexed Trunk Stair Climbing Assessment Evaluation Level of Assist On Stairs Contact Guard Assistance Devices Stair Climbing Assistive Devices Left Railing Technique/Endurance Stair Climbing Direction Ascend and Descend Stair Climbing Technique Step to Step Number of Steps Climbed 3 Query Text: Stair Climbing Set # Repetitions (reps) 1 Comments Stair Climbing Comments Pt climbed three steps with cues to only use L ascending rail CGA. M5 PT-IP Objective Assessments Start: 09/11/18 11:49 Freq: NEEDED Status: Active Protocol: Document 09/11/18 10:40 RCC (Rec: 09/11/18 12:12 [facility] [id number]) Orientation Orientation/Cognition Level of Alertness Alert Strength Comments Strength Comments strength not tested due to surgery yesterday but at least 3+/5 gross major LE mm. Coordination Assessment Gross Coordination Gross Coordination WNL Sensation Assessment Sensation Gross Sensation WNL M6 PT-IP Treatment Start: 09/11/18 11:49 Freq: NEEDED Status: Active Protocol: Document 09/11/18 10:40 RCC (Rec: 09/11/18 12:12 [facility] [id number]) Physical Therapy Treatment Education Education Provided Precautions Safety M7 PT-IP Assessment and Plan Start: 09/11/18 11:49 Freq: NEEDED Status: Active Protocol: Document 09/12/18 14:05 CLB (Rec: 09/12/18 15:21 CLB [id number]) PT Summary Assessment and Plan Summary Impairments Pain Balance Bed Mobility Transfers Gait Activity Tolerance Assessment Summary Pt continues to tolerate increased ambulation not needing rest breaks and with good safety awareness. Pt was able to trial stairs and should performs stairs again with assist of before d/c . Spoke with PT regarding pt progress, pt can be seen once a day and walk with nursing in [place]. Goals Bed Mobility Goal Standby Assistance Transfer Goal Standby Assistance Gait Goal Standby Assistance Four Wheel Walker Gait Distance 150 Other Goals up/down 3 steps with L ascending rail and CGA Days to Meet Goals 3 Frequency of Treatment Frequency Of Treatment Once a Day Treatment Plan Other Recommendations and Next Treatment Progress log roll, CG training Focus and stairs Recommendations To Nursing Amount of Assist Needed 1 Person Assist Discharge Recommendations PT Discharge Recommendations Home with Assistance Home Health
--- NOTE | 2018-09-12 16:14 | CM.DPC ---
DCP: continued: case discussed in Team rounds today. PT and OT are following pt and he is doing well in terms of functional mobility. DCP team will be following to assist with d/c issues and options. No consideration of d/c until GI function returns.
--- NOTE | 2018-09-12 17:36 | PM.PN.1 ---
Subjective Date Patient Seen: 09/12/18 Time Patient Seen: 17:36 Interval history: Patient having some anxiety this afternoon. He is unclear as to why. He feels as if he just does not want to be alone in his room. His states she has never seen him have anxiety of any kind in the past. Patient has no history of such. Denies any chest pain or shortness of breath. No numbness or tingling. His pain is well controlled with the LOUVER MORTISER OPERATOR. He has ambulated several times today without any issues. In fact he climbs some stairs with physical therapy. No flatus. No bowel movement. No dysuria or hematuria. Denies any nausea or vomiting, but nasogastric tube remains in place. Exam Vital Signs (past 8 hours): - 09/12/18 12:00 09/12/18 15:20 09/12/18 15:38 Temperature 98.4 F 99.0 F Pulse Rate 80 82 Respiratory Rate 18 18 Blood Pressure 156/82 H 153/79 H Pulse Oximetry 96 95 93 Fraction of Inspired Oxygen 28 Oxygen Delivery Method Nasal Cannula Oxygen Flow Rate 1 Narrative Exam Narrative: Well-nourished well-developed elderly male sitting comfortably in bed in no acute distress. He does appear somewhat anxious and mildly uncomfortable. Alert oriented x3 however. is at the bedside during my visit. No fevers. No tachycardia. Blood pressure has been normal. Urine output adequate. Nasogastric tube continues to have significant bilious output as anticipated. Chest clear to auscultation bilaterally with regular rate and rhythm. No crackles or wheezes. Abdomen remains significantly distended and tympanitic. No bowel sounds. Wound is clean, dry, and intact. No erythema but he does have ecchymoses inferiorly. No hematoma or seroma. No wound drainage. He is appropriately tender to palpation without guarding or rebound. Extremities show no clubbing, cyanosis, or edema Objective Labs Result Diagrams: 09/11/18 05:05 09/11/18 05:05 Labs: No new laboratory or radiographic studies for review Assessment & Plan Plan: Assessment/Plan Narrative: 83-year-old male stable 2 days status post exploratory laparotomy with lysis of adhesions. He is having some anxiety today of unclear etiology, but I do not see any cardiopulmonary or intracranial pathology that would be consistent with an acute event causing anxiety. He is not hypoxic. In fact, he is doing quite well and just about 2 L nasal cannula oxygen. Continue the nasogastric tube. I have ordered some Ativan for agitation. Benadryl for insomnia. Repeat laboratory studies tomorrow. Likely requires PICC line with TPN support beginning tomorrow. I discussed this with him today. All questions were answered to his satisfaction, and he voiced understanding. Continue to monitor closely. Quality VTE Deep Vein Thrombosis/Pulmonary Embolism Present on Admission: No
[2018-09-12] MEDS: LORazepam 2 MG/ML SYRINGE 1 MG IV (19:04)
--- NOTE | 2018-09-12 20:33 | PC.NURSE ---
SHIFT NOTE Ox3, cooperative with care. abdomen distended and round. pt denies passing any gas or BM. bowel sounds hypoactive. midline abdominal incision dressing removed by MD, jose left open to air. pt states some nausea intermittently but denies any emesis. NG to low intermittent suction, moderate amount of brown/green drainage. pt ambulating well in hallways (took 5 laps around the [facility] this shfit). able to wean pt off O2, spo2 remains 93% and above (even while sleeping). pt and pt's report pt with new anxiety, especially when being left alone in the room. offered to have pt sit near doorway to be closer to nurse station but pt declined. received order for PRN ativan. pt currently resting. call light within reach.
[2018-09-13] VITALS (8 sets, daily range): BP systolic 162–186; BP diastolic 68–94; PULSE 80–94; RESP 16–19; TEMP 36.6–37.2; O2SAT 94–96
[2018-09-13] MEDS: LORazepam 2 MG/ML SYRINGE 1 MG IV ×2 (01:58→11:55)
--- NOTE | 2018-09-13 03:34 | PC.NURSE ---
0030 Pt. very confused & dis-oriented, trying to get OOB on his own. NGT was pulled out approximately 8 cm , Kiki Mendes RN. advanced the NGT & secured with tape. Requested some meds. for help him sleep, 1 mg. Ativan IVP admin. by NR. SUSAN. Pt. still awake restless & setting off the bed alarm. Will cont. POC & monitor
[2018-09-13] MEDS: HYDROMORPHONE PCA 6 MG/30 ML PCA.VIAL IV (05:17)
[2018-09-13] MEDS: DEXTROSE 5%-NS W/KCL 20MEQ 1,000 ML 100 MEQ IV (05:18)
[2018-09-13 05:37] LABS: Add Manual Diff / Slide Review NO; Basophils Percent Auto 0.5 % (0-2); Eosinophils Percent Auto 3.5 % (2-4); Hematocrit 35.8 % (41-53); Hemoglobin 11.9 g/dL (13.5-17.5); Mean Corpuscular HGB Conc 33.2 % (30-36); Mean Corpuscular Hemoglobin 28.9 PG (26-34); Mean Corpuscular Volume 87.1 fL (80-100); Monocytes Percent Auto 9.6 % (3-14); Neutrophils Absolute Auto 6400 /uL (3000-5900); Neutrophils Percent Auto 74.4 % (50-75); Platelet Count 150 X10^3/uL (150-400); Red Blood Cell Count 4.11 X10^6/uL (4.5-5.9); Red Cell Distribution Width 14.3 % (11.6-14.8); White Blood Cell Count 8.6 X10^3/uL (4.5-11.0)
[2018-09-13 05:52] LABS: Alanine Aminotransferase 37 IU/L (21-72); Albumin 3.6 g/dL (3.5-5.0); Albumin Globulin Ratio 1.4 (1.0-2.8); Alkaline Phosphatase 45 U/L (38-126); Aspartate Aminotransferase 37 IU/L (17-59); Bilirubin Total 0.7 mg/dL (0.2-1.3); Blood Urea Nitrogen 14 mg/dL (9-20); Calcium 8.6 mg/dL (8.4-10.2); Carbon Dioxide 28 mmol/L (22-32); Chloride 104 mmol/L (98-107); Estimated Glomerular Filt Rate > 60.0 mL/min (>60); Globulin 2.6 g/dL (1.7-4.1); Glucose 132 mg/dL (80-110); HEMOLYSIS < 15 (0-50); Magnesium 2.2 mg/dL (1.6-2.3); Potassium 4.1 mmol/L (3.4-5.1); Sodium 140 mmol/L (137-145); Total Protein 6.2 g/dL (6.3-8.2)
--- NOTE | 2018-09-13 07:02 | PC.NURSE ---
Continue with confusion, pulled out his IV access. Dr. Dyer paged awaiting call back.
--- NOTE | 2018-09-13 07:08 | PC.NURSE ---
Gomez Blanchard called back order to place Anisa ARELLANO RN. aware & she will restart his IV access.
--- NOTE | 2018-09-13 09:10 | PT.IPTN ---
Current Diagnoses Unspecified intestinal obstruction, unspecified as to partial versus complete obstruction (09/10/18) Surgery Performed Operation Date: 09/10/18 16:00 Actual Procedures p Exploratory Laparotomy LYSIS OF ADHESION - Kalyan Dyer MD Physical Therapy Treatment Note M2 PT-IP Current Condition Start: 09/11/18 11:49 Freq: NEEDED Status: Active Protocol: Document 09/11/18 15:30 [facility] (Rec: 09/11/18 16:54 [facility] [id number]) Physical Therapy Current Condition Current Condition Evaluation Date 09/11/18 Treatment Diagnosis Ex. lap. with lysis of adhesions 09/10/18, impaired mobility and gait Precautions Abdominal Surgery Precautions Log Roll Lifting Restrictions Gait Belt above Incisional Area Other Precautions NG tube, supplemental O2, IV/ DIRECT CARE PROFESSIONAL M3 PT-IP Subjective Start: 09/11/18 11:49 Freq: NEEDED Status: Active Protocol: Document 09/13/18 09:04 [facility] (Rec: 09/13/18 09:10 [facility] [id number]) Subjective Physical Therapy Visit Type Type Treatment Note Visit Start Time 08:35 Visit Stop Time 08:55 Total Visit Minutes 20 Physical Therapy Visit Comments Patient Comments Pt is frustrated about still being here and looking forward to go home. Agreeable to work with PT. M4 PT-IP Mobility and Gait Start: 09/11/18 11:49 Freq: NEEDED Status: Active Protocol: Document 09/13/18 09:04 [facility] (Rec: 09/13/18 09:10 [facility] [id number]) PT-Bed Mobility Assessment Rolling Type of Rolling Log Rolling Level of Assist Contact Guard Assistance Supine to Sit Supine to Sit Minimal Assistance 1 Person Assistance Sit to Supine Sit to Supine Contact Guard Assistance Scooting Scooting to Edge of Bed Standby Assistance PT-Transfer Assessment Sit to and From Stand Sit to and from Stand Standby Assistance Equipment Transfer Assistive Device Gait Belt 4 Wheeled Walker Comments Mobility Comments Pt agreed to wear GB for stair training. Supine to sit required significant cueing and min A for doing himself without reaching for PT hand. Pt stood then amb to stairs. Gait Assessment Gait Gait Assistance Required: Standby Assistance Distance (Feet) 500 Assistive Devices Assistive Device Front Wheeled Walker Gait Deviations General Gait Pattern Flexed Trunk Comments Gait Comments 4WW adjusted to appropriate level. Pt on room air. Pt encouraged to stay close to FWW. Stair Climbing Assessment Evaluation Level of Assist On Stairs Contact Guard Assistance Devices Stair Climbing Assistive Devices Left Railing Right Railing Technique/Endurance Stair Climbing Direction Ascend and Descend Stair Climbing Technique Step to Step Number of Steps Climbed 3 Query Text: Stair Climbing Set # Repetitions (reps) 1 Comments Stair Climbing Comments Pt used only L rail to ascend and B rails to descend and reports he can use both at home. He required cueing to slow down and go controlled. M5 PT-IP Objective Assessments Start: 09/11/18 11:49 Freq: NEEDED Status: Active Protocol: Document 09/11/18 10:40 [facility] (Rec: 09/11/18 12:12 [facility] [id number]) Orientation Orientation/Cognition Level of Alertness Alert Strength Comments Strength Comments strength not tested due to surgery yesterday but at least 3+/5 gross major LE mm. Coordination Assessment Gross Coordination Gross Coordination WNL Sensation Assessment Sensation Gross Sensation WNL M6 PT-IP Treatment Start: 09/11/18 11:49 Freq: NEEDED Status: Active Protocol: Document 09/11/18 10:40 [facility] (Rec: 09/11/18 12:12 [facility] [id number]) Physical Therapy Treatment Education Education Provided Precautions Safety M7 PT-IP Assessment and Plan Start: 09/11/18 11:49 Freq: NEEDED Status: Active Protocol: Document 09/13/18 09:04 [facility] (Rec: 09/13/18 09:10 [facility] [id number]) PT Summary Assessment and Plan Summary Impairments Pain Balance Bed Mobility Transfers Gait Activity Tolerance Assessment Summary Pt did well with ambulation but did require cueing to slow down and go more controlled. Goals Bed Mobility Goal Standby Assistance Transfer Goal Standby Assistance Gait Goal Standby Assistance Four Wheel Walker Gait Distance 150 Other Goals up/down 3 steps with L ascending rail and SBA Days to Meet Goals 3 Frequency of Treatment Frequency Of Treatment Once a Day Treatment Plan Other Recommendations and Next Treatment Cont to work on log roll and Focus stairs Recommendations To Nursing Amount of Assist Needed 1 Person Assist Discharge Recommendations PT Discharge Recommendations Home with Assistance Home Health
--- NOTE | 2018-09-13 09:44 | DI.RAD.S_ITS ---
PROCEDURE: XR CHEST 1V INDICATIONS: picc line placement TECHNIQUE: One view of the chest was acquired. COMPARISON: [facility], CR, XR CHEST 1V, 09/10/2018, 19:06. FINDINGS: Surgical changes and devices: A left-sided PICC line is seen, with tip seen overlying the mid superior vena cava, approximately 4 cm above the cavoatrial junction. A pacer device is seen. Cervical and lumbar spine fixation hardware can be partially seen. Lungs and pleura: No pleural effusions or pneumothorax. Lungs are clear. Mediastinum: The cardiac contours are within normal limits. The aorta demonstrates calcification and tortuosity. Bones and chest wall: No suspicious bony lesions. Age-appropriate bony degenerative changes are seen. Overlying soft tissues appear unremarkable. IMPRESSION: The tip of a left-sided PIC line seen overlying the mid superior vena cava. Postoperative and degenerative changes are seen. Dictated by: Shivam Victor M.D. on 09/13/2018 at 9:04 Approved by: Shivam Victor M.D. on 09/13/2018 at 9:07
[2018-09-13] MEDS: PANTOPRAZOLE 40 MG VIAL IV (11:58)
[2018-09-13] MEDS: ENOXAPARIN 40 MG/0.4 ML SYRINGE SUBCUT (11:58)
--- NOTE | 2018-09-13 13:17 | P.PN_ITS ---
Subjective Date Patient Seen: 09/13/18 Time Patient Seen: 13:13 Interval history: Patient had difficult night. He did not sleep well. He became confused and disoriented to place early this morning in removed his IV as well as his nasogastric tube. IV has since been restarted, and a PICC line was placed. He tolerated this well. is at the bedside currently and he is much calmer. Denies any chest pain or shortness of breath. No significant abdominal pain. No flatus or bowel movement. No dysuria or hematuria. Exam Vital Signs (past 8 hours): - 09/13/18 07:30 09/13/18 08:54 09/13/18 12:25 Temperature 97.9 F 99.0 F Pulse Rate 89 94 H Respiratory Rate 18 16 Blood Pressure 164/68 H 162/83 H Pulse Oximetry 94 95 Fraction of Inspired Oxygen 28 Oxygen Delivery Method Room Air Oxygen Flow Rate 1 Narrative Exam Narrative: Elderly male sitting comfortably in bed in no acute distress. However he appears somewhat exhausted. He does know the place, year, and month. He states his date without any hesitation. He is oriented to self. Sclera nonicteric Chest clear to auscultation bilaterally with regular rate and rhythm. No crackles or wheezes Abdomen remains distended but soft. No significant bowel sounds. Wound is clean, dry, and intact but he does have ecchymoses throughout bilateral lower quadrants along the abdominal wall. No evidence of hematoma or seroma. No wound drainage. He is appropriately tender without guarding or rebound. Extremities show no clubbing or cyanosis. No significant edema. Nasogastric tube had been collecting bilious fluid prior to him removing it this morning. Objective Labs Result Diagrams: 09/13/18 05:25 09/13/18 05:25 Labs: Laboratory Results - last 24 hr 09/13/18 09/13/18 05:25 05:25 WBC 8.6 RBC 4.11 L Hgb 11.9 L Hct 35.8 L MCV 87.1 MCH 28.9 MCHC 33.2 RDW 14.3 Plt Count 150 Neut % (Auto) 74.4 Lymph % (Auto) 12.0 L Grand % (Auto) 9.6 Eos % (Auto) 3.5 Baso % (Auto) 0.5 Neut # (Auto) 6400 H Sodium 140 Potassium 4.1 Chloride 104 Carbon Dioxide 28 BUN 14 Creatinine 1.00 Estimated GFR > 60.0 BUN/Creatinine Ratio 14.0 Glucose 132 H Calcium 8.6 Phosphorus 2.0 L Magnesium 2.2 Total Bilirubin 0.7 AST 37 ALT 37 Alkaline Phosphatase 45 Total Protein 6.2 L Albumin 3.6 Globulin 2.6 Albumin/Globulin Ratio 1.4 No new radiographic studies for review Assessment & Plan Plan: Assessment/Plan Narrative: 83-year-old male postoperative day 3 from laparotomy with lysis of adhesions with no apparent complications, but he is intermittently confused. I suspect this may be a result of the anesthetic complicated by narcotic pain medications. I discussed this with his as well as the patient today in detail. We will begin TPN since it will be some time before he is able to tolerate a regular diet. Out of bed with physical therapy. Nasogastric tube was reinserted without any issues at the bedside this afternoon. Placement was confirmed by auscultation. At this point we will await bowel function. Discontinue the INS[employer]OR [employer]SEM[employer] CONVEYOR LINE and decrease the narcotic pain medication at this stage. However, he still has intermittent IV push Dilaudid ordered but with less frequency. I see no evidence of stroke, DVT, PE, or cardiopulmonary compromise. Therefore we will continue current care as above. All questions were answered to their satisfaction, and the patient voiced understanding. Orders were written. Quality VTE Deep Vein Thrombosis/Pulmonary Embolism Present on Admission: No
[2018-09-13] MEDS: HYDROMORPHONE 2 MG INJ 1 MG IV ×2 (13:49→19:07)
--- NOTE | 2018-09-13 15:48 | CM.DPC ---
DCP Cont: Met with in patient's room to introduce self and role. Patient was sleeping. Has NG tube in place. pleasant. Offered any resources that she may need. 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 also stated that patient has been independent at home, before becoming ill. P: DCP to continue to follow closely. Will continue to offer any resources that patient or spouse may need. Kyra Almanza RN/Salvage Engineering Technician
[2018-09-13] MEDS: FAT EMULSIONS 50 GM/250 ML EMULSION IV (18:26)
[2018-09-13] MEDS: AA 5 %/CALCIUM/LYTES/DEXT 20 % 1,000 ML with MULTIVITAMIN 10 ML, TRACE ELEMENTS 1 ML 42.125 ML IV (18:26)
--- NOTE | 2018-09-13 19:00 | PC.NURSE ---
HORACIO Patient AO, but sleepy. c/o 2/10 pain and irritated eyes (bilaterally) due to scratching. He requested and I gave him a warm washcloth. TPN started at 1845, D5NS decreased from 70ml/hr to 42ml/hr per MD order. Utilizing urinal with minimal assistance. went home for the night.
[2018-09-14] VITALS (9 sets, daily range): BP systolic 104–169; BP diastolic 67–92; PULSE 75–88; RESP 16–20; TEMP 36.4–36.9; O2SAT 93–94
[2018-09-14] MEDS: DEXTROSE 5%-NS W/KCL 20MEQ 1,000 ML 42 MEQ IV (00:52)
[2018-09-14] MEDS: HYDROMORPHONE 2 MG INJ 1 MG IV ×5 (04:52→22:23)
[2018-09-14] MEDS: PANTOPRAZOLE 40 MG VIAL IV (08:51)
[2018-09-14] MEDS: ENOXAPARIN 40 MG/0.4 ML SYRINGE SUBCUT (08:51)
[2018-09-14] MEDS: BENZOCAINE/MENTHOL 1 LOZ PKT 1 EACH PO (10:02)
--- NOTE | 2018-09-14 12:18 | OT.IP.EVAL ---
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 indoor ambulation without device, modified indep . with 4WW for long distances Activities of Daily Living and IADL's indep. I/ADLs Prior Functional Level (Other details) Pt drives when feeling well. Social History Household Members spouse Living Arrangements House Number of Floors (Floors) One Floor Number of Stairs To Enter/Railing? 3 stairs to enter with L ascending rail Home Environment High Toilet Walk in Shower Home Equipment Four Wheel Walker Grab Bars In Shower Employment Status Retired Additional Social History Comment walks with FWW and cannot assist pt physically at home, but can assist with all IADLS and provide SBA for showering . 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 M2 OT-IP Current Condition Start: 09/14/18 15:43 Freq: Status: Active Protocol: Document 09/14/18 12:18 PJM (Rec: 09/14/18 16:01 PJ [id number]) Occupational Therapy Current Condition Current Condition Evaluation Date 09/14/18 Treatment Diagnosis decreased self care s/p SBO w/ ex lap, lysis of adhesions , ileus Post Operative Precautions Abdominal Surgery Precautions Log Roll Lifting Restrictions Gait Belt above Incisional Area Other Precautions NG tube, supplemental O2, IV/ TPN M3 OT- IP Subjective and Pain Start: 09/14/18 15:43 Freq: Status: Active Protocol: Document 09/14/18 12:18 [facility] (Rec: 09/14/18 16:01 [facility] [email or web address]) OT- Subjective Occupational Therapy Visit Type Type Initial Evaluation Visit Start Time 11:55 Visit Stop Time 12:18 Total Visit Minutes 23 Notes Pt's present this session Occupational Therapy Visit Comments Patient Comments It is really hard to sleep here. I can't wait to get rid of all these tubes. Patient/Caregiver Goals to go home [place]UC[place] OT Pain Assessment Pain When Pain Assessed After Treatment Pain Present Pain Present Pain Reported Location Abdomen Intensity 7 Scale Used Numeric (1 - 10) Description Aching Acute Pain Behaviors Guarding Holding Area M4 OT- IP ADL's Start: 09/14/18 15:43 Freq: Status: Active Protocol: Document 09/14/18 12:18 PJ (Rec: 09/14/18 16:01 [facility] NRTM) OT [id number] Comments OT Self-Feeding Comments Pt NPO except feeding self ice chips at present. OT ADL-Grooming General Evaluation Grooming Ability Standby Assistance Areas Needing Assistance Retrieving/Set-up of Grooming Items Face Washing Comments OT Grooming Comments after set up in bed OT ADL-Oral Care General Eval Oral Care Ability Standby Assistance Areas of Assistance Managing Dentures Retrieving/Set-Up of Items Comments Oral Care Comments to place dentures, apply adhesive OT ADL-Dressing General Eval Lower Body Dressing Ability Total Assistance Areas Needing Assistance Socks Assistive Devices Dressing Assistive Devices Bridge Teacher OT ADL-Toileting General Evaluation Toileting Ability Minimal Assistance Devices Toileting Assistive Devices Urinal Comments OT Toileting Comments Pt has not had bowel movement since surgery OT ADL-Bathing Devices Bathing Equipment Long Handled Sponge or Climax Comments OT Bathing Comments to be assessed as activity tolerance permits, states shower is too small for shower seat M5 OT- IP IADL's Start: 09/14/18 15:43 Freq: Status: Active Protocol: Document 09/14/18 12:18 PJM (Rec: 09/14/18 16:01 [facility] [id number]) OT-Instrumental Activities of Daily Living Deficits IADL Deficits Identified Deficits Home Safety Awareness Awareness of Need for Assistance at Home Good Awareness Ability to Problem Solve Emergency Able to Problem Solve Situations Medication Management Medication Management Caregiver Provides Supervision Money Management Money Management No Deficits Identified Meal Preparation Meal Preparation Caregiver Provides Assist Vp Emerging Media Vp Emerging Media Caregiver Provides Assist Driving Driving Caregiver Provides Assist Driving Comments until pt able M6 OT- IP Functional Cognition Start: 09/14/18 15:43 Freq: Status: Active Protocol: Document 09/14/18 12:18 PJM (Rec: 09/14/18 16:01 [facility] NR) Cognitive Factors Limiting Selfcare Function Cognitive Ability Level of Alertness Alert Patient Orientation Name Month Date Year Place Situation Attention Span Ability Capable of Focused Attention Capable of Sustained Attention Ability to Follow Commands Able to Follow One Step Commands Cognitive Comments Cognitive Assessment Comments Pt alert and oriented this session. He has had episodes of confusion/anxiety at night per chart notes. OT- Vision and Hearing OT- Hearing Assessment OT- Hearing Assessment WFL OT- Vision Assessment Visual Acuity WFL Vision Assessment Comments Pt denies any recent vision changes M7 OT- IP Mobility and Balance Start: 09/14/18 15:43 Freq: Status: Active Protocol: Document 09/14/18 12:18 PJM (Rec: 09/14/18 16:01 [facility] NR) OT-Transfer Assessment Comments Mobility Comments did not occur; pt just abck to bed after long walk with P.T. OT- Gait Assessment Comments Gait Ability Comments see P.T. notes OT- Balance Assessment Comments Other Balance Tests/Deviations/Treatment see P.T. notes : M8 OT- IP Objective Assessments Start: 09/14/18 15:43 Freq: Status: Active Protocol: Document 09/14/18 12:18 PJM (Rec: 09/14/18 16:01 [facility] NR) OT Gross Range of Motion Upper Extremity Range of Motion Assessment Within Functional Limits OT Strength Upper Extremity Strength Assessment Within Functional Limits Hand Cardroom Attendant Strength Hand Dominance Right OT- Coordination Assessment Comments Coordination Comments BUE WFL OT-Muscle Tone Assessment Muscle Tone WNL Yes OT Sensation Assessment Comments Summary Comments Pt denies deficits in BUE's. M9 OT- IP Assessment and Plan Start: 09/14/18 15:43 Freq: Status: Active Protocol: Document 09/14/18 12:18 PJM (Rec: 09/14/18 16:01 [facility] NR) OT Summary Assessment and Plan Potential Rehabilitation Potential Good Analytic Complexity at Evaluation Low Summary OT Impairments Dressing Toileting Bathing Toilet Transfers Shower Transfers Assessment Summary Low complexity OT assessment completed with emphasis on adapted ADLS after recent abdominal surgery with persistent ileus and NG tube/ TPN still in place. Pt currently has mild performance deficits in standing grooming , lower body dressing, bathing , toileting. Anticipate pt will progress well once able to eat and NG tube out. Pt ambulating well with P.T. and has done stairs. Pt and are planning on home d/c when pt medically stable. Pt ambulating well with P.T. and has already done stairs. Goals Grooming Goal Independent Dressing Goal Independent Bridge Teacher Sock Aid Toileting Goal Independent Bathing Goal Standby Assistance Grab Bars Long Handled Sponge or Climax Toilet Transfer Goal Independent Shower Transfer Goal Standby Assistance Patient/Caregiver Education Goal Demonstrate Post-Op Precautions Demonstrate Energy Conservation and Pacing Caregiver Independent Assisting Patient OT-Other Goals Grooming to be done standing at sink. Showering to be done standing with no loss of balance Days to Meet Goals 3 Frequency of Treatment Frequency Of Treatment Once a Day Treatment Plan OT Treatment Plan ADL Training Functional Mobility Patient/Family Education Discharge Planning Discharge Recommendations OT Discharge Recommendations Home with / Assist
--- NOTE | 2018-09-14 12:21 | PT.IPTN ---
Current Diagnoses Unspecified intestinal obstruction, unspecified as to partial versus complete obstruction (09/10/18) Surgery Performed Operation Date: 09/10/18 16:00 Actual Procedures p Exploratory Laparotomy LYSIS OF ADHESION - Kalyan Dyer MD Physical Therapy Treatment Note M2 PT-IP Current Condition Start: 09/11/18 11:49 Freq: NEEDED Status: Active Protocol: Document 09/14/18 11:25 [facility] (Rec: 09/14/18 12:20 [facility] [id number]) Physical Therapy Current Condition Current Condition Evaluation Date 09/11/18 Treatment Diagnosis Ex. lap. with lysis of adhesions 09/10/18, impaired mobility and gait Precautions Abdominal Surgery Precautions Log Roll Lifting Restrictions Gait Belt above Incisional Area Other Precautions NG tube, supplemental O2, IV/ SHIRT OPERATOR M3 PT-IP Subjective Start: 09/11/18 11:49 Freq: NEEDED Status: Active Protocol: Document 09/14/18 11:25 [facility] (Rec: 09/14/18 12:20 [facility] [id number]) Subjective Physical Therapy Visit Type Type Treatment Note Visit Start Time 11:25 Visit Stop Time 11:55 Total Visit Minutes 30 Physical Therapy Visit Comments Patient Comments Patient eager to get up and walk as many times throughout the day as possible. M4 PT-IP Mobility and Gait Start: 09/11/18 11:49 Freq: NEEDED Status: Active Protocol: Document 09/14/18 11:25 [facility] (Rec: 09/14/18 12:20 [facility] [id number]) PT-Bed Mobility Assessment Rolling Type of Rolling Log Rolling Level of Assist Contact Guard Assistance Supine to Sit Supine to Sit Minimal Assistance 1 Person Assistance Sit to Supine Sit to Supine Contact Guard Assistance Scooting Scooting to Edge of Bed Standby Assistance Scooting Up and Down in Bed Standby Assistance PT-Transfer Assessment Sit to and From Stand Sit to and from Stand Standby Assistance Equipment Transfer Assistive Device Gait Belt 4 Wheeled Walker Transfers Transfer Destination Bed Transfer Ability Level of Assist Standby Assistance Comments Mobility Comments Patient agreeable to gait belt for ambulation and stair climbing. Gait Assessment Gait Gait Assistance Required: Standby Assistance Distance (Feet) 2,500 Assistive Devices Assistive Device 4 Wheeled Walker Gait Deviations General Gait Pattern Flexed Trunk Comments Gait Comments Verbal cuing for pacing and proper upright posture and keeping closer to FWW. Stair Climbing Assessment Evaluation Level of Assist On Stairs Contact Guard Assistance Devices Stair Climbing Assistive Devices Left Railing Technique/Endurance Stair Climbing Direction Ascend and Descend Stair Climbing Technique Step Over Step Number of Steps Climbed 3 Query Text: Stair Climbing Set # Repetitions (reps) 1 Comments Stair Climbing Comments Patient using left rail on ascension, ramón on descension. Verbal cuing for pacing and safety. M5 PT-IP Objective Assessments Start: 09/11/18 11:49 Freq: NEEDED Status: Active Protocol: Document 09/11/18 10:40 [facility] (Rec: 09/11/18 12:12 [facility] [id number]) Orientation Orientation/Cognition Level of Alertness Alert Strength Comments Strength Comments strength not tested due to surgery yesterday but at least 3+/5 gross major LE mm. Coordination Assessment Gross Coordination Gross Coordination WNL Sensation Assessment Sensation Gross Sensation WNL M6 PT-IP Treatment Start: 09/11/18 11:49 Freq: NEEDED Status: Active Protocol: Document 09/11/18 10:40 [facility] (Rec: 09/11/18 12:12 [facility] [id number]) Physical Therapy Treatment Education Education Provided Precautions Safety M7 PT-IP Assessment and Plan Start: 09/11/18 11:49 Freq: NEEDED Status: Active Protocol: Document 09/14/18 11:25 [facility] (Rec: 09/14/18 12:20 [facility] [id number]) PT Summary Assessment and Plan Summary Impairments Pain Balance Bed Mobility Transfers Gait Activity Tolerance Assessment Summary Pt did well with ambulation but did require consistent cueing to slow down and go more controlled. Emphasis on safety. Goals Bed Mobility Goal Standby Assistance Transfer Goal Standby Assistance Gait Goal Standby Assistance Four Wheel Walker Other Goals up/down 3 steps with L ascending rail and SBA Days to Meet Goals 3 Frequency of Treatment Frequency Of Treatment Once a Day Treatment Plan Other Recommendations and Next Treatment Ambulation with pacing, stairs Focus , log roll. Recommendations To Nursing Amount of Assist Needed 1 Person Assist Discharge Recommendations PT Discharge Recommendations Home with Assistance Home Health
[2018-09-14] MEDS: FAT EMULSIONS 50 GM/250 ML EMULSION IV (18:40)
[2018-09-14] MEDS: AA 5 %/CALCIUM/LYTES/DEXT 20 % 1,000 ML with MULTIVITAMIN 10 ML, TRACE ELEMENTS 1 ML 42.125 ML IV (18:48)
[2018-09-14] MEDS: INSULIN ASPART 100 UNIT/ML INSULN PEN SUBCUT (18:49)
--- NOTE | 2018-09-14 19:30 | PM.PN.1 ---
Subjective Date Patient Seen: 09/14/18 Time Patient Seen: 19:30 Interval history: Patient is sitting comfortably in bed feeling much better today than he has yesterday. His is with him and she is quite pleased to see him feeling back more toward his normal self. Patient denies any significant pain. No chest pain or shortness of breath. He is in good spirits today. He has had multiple visitors. He has ambulated through the hallways without issue. No dysuria or hematuria. States that he passed a small amount of flatus but no bowel movement. No nausea or vomiting. Exam Vital Signs (past 8 hours): - 09/14/18 12:41 09/14/18 16:39 Temperature 97.5 F L 97.7 F Pulse Rate 75 88 Respiratory Rate 16 20 Blood Pressure 149/80 H 154/67 H Fraction of Inspired Oxygen 28 Oxygen Delivery Method Room Air Oxygen Flow Rate 0 Narrative Exam Narrative: Elderly male sitting comfortably in bed in no acute distress. Alert oriented x3. Sclera nonicteric Nasogastric tube is in place collecting bile tinged fluid. However, fluid is much less bilious today than yesterday. Total output is approximately 800 cc. Chest clear to auscultation bilaterally with regular rate and rhythm. No crackles or wheezes. Abdomen shows few hypoactive bowel sounds but he remains distended and tympanitic. However, his distention is decreased compared to yesterday. Wound is clean, dry, and intact but he does have significant ecchymoses throughout the bilateral lower quadrants of the abdominal wall. No hematoma or seroma. No wound drainage. He is appropriately tender to palpation but without guarding or rebound. Extremities show no clubbing, cyanosis, or significant edema Objective Labs Result Diagrams: 09/13/18 05:25 09/13/18 05:25 Labs: No new laboratory or radiographic studies for review today Assessment & Plan Plan: Assessment/Plan Narrative: 83-year-old male postoperative day 4 from exploratory laparotomy with lysis of adhesions who is doing well. He continues to improve. Has ongoing postoperative ileus as anticipated given the nature of his disease and required operation. However, he is beginning to have some early signs of returning bowel function. Will continue TPN until he does have significant bowel function. Continue nasogastric tube for now given the amount of the output. Continue to ambulate as tolerated. Repeat laboratory studies tomorrow. Follow his blood sugars q.6 hours. All the above discussed with the patient in detail. was at the bedside for the entire visit as well. All questions answered to their satisfaction, and the patient voiced understanding. Orders were written. Quality VTE Deep Vein Thrombosis/Pulmonary Embolism Present on Admission: No
[2018-09-14] MEDS: LORazepam 2 MG/ML SYRINGE 1 MG IV (21:51)
[2018-09-15] VITALS (11 sets, daily range): BP systolic 148–177; BP diastolic 66–88; PULSE 66–74; RESP 16–20; TEMP 36.1–37; O2SAT 94–97
--- NOTE | 2018-09-15 00:45 | PC.NURSE ---
Preschool Education Director Note: 0000: Awake, resting in bed. Remains on TPN/IL and D5NS/KCL via double lumen PICC in lt upper arm. PICC dressing cdi. NGT in place and checked for patency, continues on low intermittent suction. Abdominal jose are open to air, and no drainage noted along incision. CBG 135, no sliding scale coverage given. Pt denies pain at this time.
[2018-09-15] MEDS: DEXTROSE 5%-NS W/KCL 20MEQ 1,000 ML 42 MEQ IV (02:17)
[2018-09-15 05:49] LABS: Add Manual Diff / Slide Review NO; Basophils Percent Auto 0.7 % (0-2); Eosinophils Percent Auto 5.6 % (2-4); Hematocrit 36.6 % (41-53); Hemoglobin 12.1 g/dL (13.5-17.5); Lymphocytes Percent Auto 18.3 % (25-40); Mean Corpuscular HGB Conc 33.1 % (30-36); Mean Corpuscular Volume 87.5 fL (80-100); Monocytes Percent Auto 13.2 % (3-14); Neutrophils Absolute Auto 4000 /uL (3000-5900); Neutrophils Percent Auto 62.2 % (50-75); Platelet Count 161 X10^3/uL (150-400); Red Blood Cell Count 4.18 X10^6/uL (4.5-5.9); Red Cell Distribution Width 14.3 % (11.6-14.8); White Blood Cell Count 6.4 X10^3/uL (4.5-11.0)
[2018-09-15 05:56] LABS: Alanine Aminotransferase 70 IU/L (21-72); Albumin 3.6 g/dL (3.5-5.0); Albumin Globulin Ratio 1.4 (1.0-2.8); Alkaline Phosphatase 46 U/L (38-126); Aspartate Aminotransferase 53 IU/L (17-59); Bilirubin Total 0.7 mg/dL (0.2-1.3); Blood Urea Nitrogen 19 mg/dL (9-20); Calcium 8.7 mg/dL (8.4-10.2); Carbon Dioxide 26 mmol/L (22-32); Chloride 103 mmol/L (98-107); Estimated Glomerular Filt Rate > 60.0 mL/min (>60); Globulin 2.6 g/dL (1.7-4.1); Glucose 144 mg/dL (80-110); HEMOLYSIS < 15 (0-50); Magnesium 2.1 mg/dL (1.6-2.3); Phosphorous 3.8 mg/dL (2.3-3.7); Potassium 3.9 mmol/L (3.4-5.1); Sodium 140 mmol/L (137-145); Total Protein 6.2 g/dL (6.3-8.2)
[2018-09-15] MEDS: INSULIN ASPART 100 UNIT/ML INSULN PEN SUBCUT ×2 (06:48→06:50)
[2018-09-15] MEDS: HYDROMORPHONE 2 MG INJ 1 MG IV ×3 (06:54→14:47)
[2018-09-15] MEDS: ENOXAPARIN 40 MG/0.4 ML SYRINGE SUBCUT (08:26)
[2018-09-15] MEDS: PANTOPRAZOLE 40 MG VIAL IV (08:27)
--- NOTE | 2018-09-15 09:30 | OT.IP.TRT ---
Current Diagnoses Unspecified intestinal obstruction, unspecified as to partial versus complete obstruction (09/10/18) Surgery Performed Operation Date: 09/10/18 16:00 Actual Procedures p Exploratory Laparotomy LYSIS OF ADHESION - Kalyan Dyer MD Occupational Therapy Treatment Note M2 OT-IP Current Condition Start: 09/14/18 15:43 Freq: Status: Active Protocol: Document 09/14/18 12:18 PJM (Rec: 09/14/18 16:01 PJM [id number]) Occupational Therapy Current Condition Current Condition Evaluation Date 09/14/18 Treatment Diagnosis decreased self care s/p SBO w/ ex lap, lysis of adhesions , ileus Post Operative Precautions Abdominal Surgery Precautions Log Roll Lifting Restrictions Gait Belt above Incisional Area Other Precautions NG tube, supplemental O2, IV/ TPN M3 OT- IP Subjective and Pain Start: 09/14/18 15:43 Freq: Status: Active Protocol: Document 09/15/18 09:30 PJM (Rec: 09/15/18 15:54 PJM [id number]) OT- Subjective Occupational Therapy Visit Type Type Treatment Note Visit Start Time 08:41 Visit Stop Time 09:30 Total Visit Minutes 49 Notes Pt's here at end of session. Occupational Therapy Visit Comments Patient Comments Can we take a walk? Patient/Caregiver Goals to to home OT Pain Assessment Pain When Pain Assessed After Treatment Pain Present Pain Present Pain Reported Location Abdomen Intensity 2 Description Aching M4 OT- IP ADL's Start: 09/14/18 15:43 Freq: Status: Active Protocol: Document 09/15/18 09:30 PJM (Rec: 09/15/18 15:54 PJM [id number]) OT LYE-Feej-[place] General Evaluation Diet Level for Self-Feeding NPO except ice chips Self-Feeding Ability Independent OT ADL-Grooming Comments OT Grooming Comments pt declines combing hair this session OT ADL-Oral Care Comments Oral Care Comments pt declines oral care this session OT ADL-Dressing General Eval Lower Body Dressing Ability Independent Areas Needing Assistance Underpants/Brief Socks Comments OT Dressing Comments No c/o pain with lower body dressing; pt stood with no loss of balance to pull pnats over hips OT ADL-Toileting General Evaluation Toileting Ability Independent Areas Needing Assistance Perform Perineal Hygiene Devices Toileting Assistive Devices Urinal Comments OT Toileting Comments pt has not yet had bowel movement due to ileus OT ADL-Bathing Bathing Type Bathing Type Sponge Bath General Evaluation Bathing Ability Minimal Assistance Areas Needing Assistance Wash/Dry Back Comments OT Bathing Comments Pt declines to shower at present, but did sponge bath of upper body and did cheyenne care seated/standing; pt has long bath sponge at home and will assist PRN. M6 OT- IP Functional Cognition Start: 09/14/18 15:43 Freq: Status: Active Protocol: Document 09/15/18 09:30 PJM (Rec: 09/15/18 15:54 [facility] [id number]) Cognitive Factors Limiting Selfcare Function Cognitive Ability Level of Alertness Alert Patient Orientation Name Month Date Year Place Situation Attention Span Ability Capable of Focused Attention Capable of Sustained Attention Ability to Follow Commands Able to Follow One Step Commands Memory Description No Deficits Noted Cognitive Comments Cognitive Assessment Comments appears WFL this session M7 OT- IP Mobility and Balance Start: 09/14/18 15:43 Freq: Status: Active Protocol: Document 09/15/18 09:30 PJM (Rec: 09/15/18 15:54 [facility] [id number]) OT- Bed Mobility Assessment Sit to Supine Sit to Supine Assist Independent OT-Transfer Assessment Sit to and From Stand Sit to and from Stand Standby Assistance Transfers Transfer Ability Standby Assistance Technique Transfer Destination Bed Chair Transfer Technique Stand Step Pivot Devices Transfer Assistive Devices Gait Belt 4 Wheeled Walker OT- Gait Assessment Gait Gait Assistance Required: Standby Assistance Distance (Feet) 1,000+ ft Assistive Devices Assistive Device Gait Belt 4 Wheeled Walker Comments Gait Ability Comments Pt walked entire length of floor plus 2 laps around [facility] with FWW; needs min cues for pacing and assist with IV pole. No loss of balance noted. OT- Balance Assessment Sitting Balance and Reactions Static Sitting Balance Ability Good Dynamic Sitting Balance Ability Good Standing Balance and Reactions Static Standing Balance Ability Good Dynamic Standing Balance Ability Good Comments Other Balance Tests/Deviations/Treatment during standing for lower : body dressing and cheyenne care M9 OT- IP Assessment and Plan Start: 09/14/18 15:43 Freq: Status: Active Protocol: Document 09/15/18 09:30 PJM (Rec: 09/15/18 15:54 [facility] [id number]) OT Summary Assessment and Plan Potential Rehabilitation Potential Good Summary Progress Towards Goals Progressing Toward Goals Assessment Summary Pt making good progress with self care skills and has met all OT goals except for showering. Will check with RN regarding MD clearance for showering. Pt plans to home therapy clinician shower stall at home. Pt will d/c home with 24 hr assist from supportive once he has had BM and tolerating oral intake. Plan 1 additional OT visit prior to d/c for showering. Goals Grooming Goal Independent Dressing Goal Independent Flatwork Ironer Sock Aid Toileting Goal Independent Bathing Goal Standby Assistance Grab Bars Long Handled Sponge or [place] Toilet Transfer Goal Independent Shower Transfer Goal Standby Assistance Patient/Caregiver Education Goal Demonstrate Post-Op Precautions Demonstrate Energy Conservation and Pacing Caregiver Independent Assisting Patient OT-Other Goals Grooming to be done standing at sink. Showering to be done standing with no loss of balance Days to Meet Goals 1 Frequency of Treatment Frequency Of Treatment Once a Day Treatment Plan OT Treatment Plan ADL Training Patient/Family Education Discharge Planning Other Treatment Recommendations and Next shower closer to d/c date Treatment Focus Discharge Recommendations OT Discharge Recommendations Home with 24/7 Assist
--- NOTE | 2018-09-15 11:31 | PT.IPTN ---
Current Diagnoses Unspecified intestinal obstruction, unspecified as to partial versus complete obstruction (09/10/18) Surgery Performed Operation Date: 09/10/18 16:00 Actual Procedures p Exploratory Laparotomy LYSIS OF ADHESION - Kalyan Dyer MD Physical Therapy Treatment Note M2 PT-IP Current Condition Start: 09/11/18 11:49 Freq: NEEDED Status: Active Protocol: Document 09/14/18 11:25 NFW (Rec: 09/14/18 12:20 NFW [id number]) Physical Therapy Current Condition Current Condition Evaluation Date 09/11/18 Treatment Diagnosis Ex. lap. with lysis of adhesions 09/10/18, impaired mobility and gait Precautions Abdominal Surgery Precautions Log Roll Lifting Restrictions Gait Belt above Incisional Area Other Precautions NG tube, supplemental O2, IV/ SPECTACLE TRUER M3 PT-IP Subjective Start: 09/11/18 11:49 Freq: NEEDED Status: Active Protocol: Document 09/15/18 10:10 GGD (Rec: 09/15/18 11:31 GGD [id number]) Subjective Physical Therapy Visit Type Type Patient Refusal Notes Pt states that he is very tired and just got to bed. Frequency Of Treatment Once a Day Treatment Plan Other Recommendations and Next Treatment Ambulation with pacing, stairs Focus , log roll. Recommendations To Nursing Amount of Assist Needed 1 Person Assist Discharge Recommendations PT Discharge Recommendations Home with Assistance Home Health
--- NOTE | 2018-09-15 12:22 | P.PN_ITS ---
Subjective Date Patient Seen: 09/15/18 Time Patient Seen: 12:20 Interval history: Mr. Myers is sitting up in bed talking with his . He tells me he is feeling much better today and that he has continued to pass gas throughout the day and night. He very much wants his NG tube out. He says staying in the hospital is not too bad except for the fact he just can't sleep. He says there is too much noise both from the sumner and from the clip it and he wakes up all the time. He is definitely anxious to go home. Exam Vital Signs (past 8 hours): - 09/15/18 05:02 09/15/18 07:00 09/15/18 08:09 Temperature 98.0 F 97.8 F Pulse Rate 71 68 Respiratory Rate 20 16 Blood Pressure 158/88 H 150/80 H Pulse Oximetry 95 97 09/15/18 09:23 Temperature Pulse Rate Respiratory Rate Blood Pressure Pulse Oximetry 97 Fraction of Inspired Oxygen 28 Oxygen Delivery Method Room Air Oxygen Flow Rate 0 Narrative Exam Narrative: Lower midline wound is clean and dry. Clips are in place. He has significant bruising across the lower portion of his abdomen but there is no abscess or collection to be drained. He has normoactive bowel sounds. Lungs: Clear bilaterally no wheezing Heart: Regular rate and rhythm Extremities: No perceptible edema Objective Labs Result Diagrams: 09/15/18 05:05 09/15/18 05:05 Labs: Laboratory Results - last 24 hr 09/15/18 09/15/18 05:05 05:05 WBC 6.4 RBC 4.18 L Hgb 12.1 L Hct 36.6 L MCV 87.5 MCH 29.0 MCHC 33.1 RDW 14.3 Plt Count 161 Neut % (Auto) 62.2 Lymph % (Auto) 18.3 L [place] % (Auto) 13.2 Eos % (Auto) 5.6 H Baso % (Auto) 0.7 Neut # (Auto) 4000 Sodium 140 Potassium 3.9 Chloride 103 Carbon Dioxide 26 BUN 19 Creatinine 1.00 Estimated GFR > 60.0 BUN/Creatinine Ratio 19.0 Glucose 144 H Calcium 8.7 Phosphorus 3.8 H D Magnesium 2.1 Total Bilirubin 0.7 AST 53 ALT 70 Alkaline Phosphatase 46 Total Protein 6.2 L Albumin 3.6 Globulin 2.6 Albumin/Globulin Ratio 1.4 Assessment & Plan Plan: Assessment/Plan Narrative: I spent significant time with Denys and his this morning. We have made the plan to clamp his NG tube now and I will be back at 4:30 this afternoon to check residual volume. As long as the residual was under 100 mL, I will remove the NG tube and he will remain NPO except ice chips overnight. Quality VTE Deep Vein Thrombosis/Pulmonary Embolism Present on Admission: No
--- NOTE | 2018-09-15 14:20 | PT.IPTN ---
Current Diagnoses Unspecified intestinal obstruction, unspecified as to partial versus complete obstruction (09/10/18) Surgery Performed Operation Date: 09/10/18 16:00 Actual Procedures p Exploratory Laparotomy LYSIS OF ADHESION - Kalyan Dyer MD Physical Therapy Treatment Note M2 PT-IP Current Condition Start: 09/11/18 11:49 Freq: NEEDED Status: Active Protocol: Document 09/14/18 11:25 NFW (Rec: 09/14/18 12:20 NFW [id number]) Physical Therapy Current Condition Current Condition Evaluation Date 09/11/18 Treatment Diagnosis Ex. lap. with lysis of adhesions 09/10/18, impaired mobility and gait Precautions Abdominal Surgery Precautions Log Roll Lifting Restrictions Gait Belt above Incisional Area Other Precautions NG tube, supplemental O2, IV/ SPORTS ANCHOR M3 PT-IP Subjective Start: 09/11/18 11:49 Freq: NEEDED Status: Active Protocol: Document 09/15/18 14:20 GGD (Rec: 09/15/18 16:13 GGD [id number]) Subjective Physical Therapy Visit Type Type Treatment Note Visit Start Time 13:50 Visit Stop Time 14:20 Total Visit Minutes 30 Number of SUPERVISOR PAPER COATING Visits 1 Physical Therapy Visit Comments Patient Comments Pt states he would like to walk. M4 PT-IP Mobility and Gait Start: 09/11/18 11:49 Freq: NEEDED Status: Active Protocol: Document 09/15/18 14:20 GGD (Rec: 09/15/18 16:13 GGD [id number]) PT-Bed Mobility Assessment Rolling Type of Rolling Log Rolling Level of Assist Contact Guard Assistance Supine to Sit Supine to Sit Standby Assistance Bedrails Scooting Scooting to Edge of Bed Independent PT-Transfer Assessment Sit to and From Stand Sit to and from Stand Standby Assistance Equipment Transfer Assistive Device Gait Belt 4 Wheeled Walker Transfers Transfer Destination Chair Gait Assessment Gait Gait Assistance Required: Standby Assistance Distance (Feet) 1,000 Able to Maintain Weight Bearing Status Yes During Gait Assistive Devices Assistive Device 4 Wheeled Walker Gait Deviations General Gait Pattern Flexed Trunk Comments Gait Comments gait x 5 feet in room without assistive device. M5 PT-IP Objective Assessments Start: 09/11/18 11:49 Freq: NEEDED Status: Active Protocol: Document 09/11/18 10:40 RCC (Rec: 09/11/18 12:12 RCC [id number]) Orientation Orientation/Cognition Level of Alertness Alert Strength Comments Strength Comments strength not tested due to surgery yesterday but at least 3+/5 gross major LE mm. Coordination Assessment Gross Coordination Gross Coordination WNL Sensation Assessment Sensation Gross Sensation WNL M6 PT-IP Treatment Start: 09/11/18 11:49 Freq: NEEDED Status: Active Protocol: Document 09/11/18 10:40 RCC (Rec: 09/11/18 12:12 RCC [id number]) Physical Therapy Treatment Education Education Provided Precautions Safety M7 PT-IP Assessment and Plan Start: 09/11/18 11:49 Freq: NEEDED Status: Active Protocol: Document 09/15/18 14:20 GGD (Rec: 09/15/18 16:13 GGD [id number]) PT Summary Assessment and Plan Summary Assessment Summary Pt didn't need asisst for log roll with bed mobility. He was able to ambulate with 4WW with cues for posture and pace . He is at base line for gait tolerance with 4WW. He safe for home D/C with family when medically stable. D/C from PT due to being at base line for mobility. Frequency of Treatment Frequency Of Treatment Discharge Recommendations To Nursing Amount of Assist Needed Standby Assistance Discharge Recommendations PT Discharge Recommendations Home with Assistance Home Health
--- NOTE | 2018-09-15 14:20 | PT.IPTN ---
Current Diagnoses Unspecified intestinal obstruction, unspecified as to partial versus complete obstruction (09/10/18) Surgery Performed Operation Date: 09/10/18 16:00 Actual Procedures p Exploratory Laparotomy LYSIS OF ADHESION - Kalyan Dyer MD Physical Therapy Treatment Note M2 PT-IP Current Condition Start: 09/11/18 11:49 Freq: NEEDED Status: Active Protocol: Document 09/14/18 11:25 NFW (Rec: 09/14/18 12:20 NFW [id number]) Physical Therapy Current Condition Current Condition Evaluation Date 09/11/18 Treatment Diagnosis Ex. lap. with lysis of adhesions 09/10/18, impaired mobility and gait Precautions Abdominal Surgery Precautions Log Roll Lifting Restrictions Gait Belt above Incisional Area Other Precautions NG tube, supplemental O2, IV/ ELECTRONEURODIAGNOSTIC TECHNICIAN M3 PT-IP Subjective Start: 09/11/18 11:49 Freq: NEEDED Status: Active Protocol: Document 09/15/18 14:20 GGD (Rec: 09/15/18 16:13 GGD [id number]) Subjective Physical Therapy Visit Type Type Treatment Note Visit Start Time 13:50 Visit Stop Time 14:20 Total Visit Minutes 30 Number of CHARGE ENTRY Visits 1 Physical Therapy Visit Comments Patient Comments Pt states he would like to walk. M4 PT-IP Mobility and Gait Start: 09/11/18 11:49 Freq: NEEDED Status: Active Protocol: Document 09/15/18 14:20 GGD (Rec: 09/15/18 16:13 GGD [id number]) PT-Bed Mobility Assessment Rolling Type of Rolling Log Rolling Level of Assist Contact Guard Assistance Supine to Sit Supine to Sit Standby Assistance Bedrails Scooting Scooting to Edge of Bed Independent PT-Transfer Assessment Sit to and From Stand Sit to and from Stand Standby Assistance Equipment Transfer Assistive Device Gait Belt 4 Wheeled Walker Transfers Transfer Destination Chair Gait Assessment Gait Gait Assistance Required: Standby Assistance Distance (Feet) 1,000 Able to Maintain Weight Bearing Status Yes During Gait Assistive Devices Assistive Device 4 Wheeled Walker Gait Deviations General Gait Pattern Flexed Trunk Comments Gait Comments gait x 5 feet in room without assistive device. M5 PT-IP Objective Assessments Start: 09/11/18 11:49 Freq: NEEDED Status: Active Protocol: Document 09/11/18 10:40 RCC (Rec: 09/11/18 12:12 RCC [id number]) Orientation Orientation/Cognition Level of Alertness Alert Strength Comments Strength Comments strength not tested due to surgery yesterday but at least 3+/5 gross major LE mm. Coordination Assessment Gross Coordination Gross Coordination WNL Sensation Assessment Sensation Gross Sensation WNL M6 PT-IP Treatment Start: 09/11/18 11:49 Freq: NEEDED Status: Active Protocol: Document 09/11/18 10:40 RCC (Rec: 09/11/18 12:12 RCC [id number]) Physical Therapy Treatment Education Education Provided Precautions Safety M7 PT-IP Assessment and Plan Start: 09/11/18 11:49 Freq: NEEDED Status: Active Protocol: Document 09/15/18 14:20 GGD (Rec: 09/15/18 16:13 GGD [id number]) PT Summary Assessment and Plan Summary Assessment Summary Pt didn't need asisst for log roll with bed mobility. He was able to ambulate with 4WW with cues for posture and pace . He is at base line for gait tolerance with 4WW. He safe for home D/C with family when medically stable. D/C from PT due to being at base line for mobility. Frequency of Treatment Frequency Of Treatment Discharge Recommendations To Nursing Amount of Assist Needed Standby Assistance Discharge Recommendations PT Discharge Recommendations Home Home with Assistance
--- NOTE | 2018-09-15 16:03 | PC.NURSE ---
Pt NG tube is clamped by Dr Márquez. Pt states MD to return in 4 hrs to reassess NGT out put.
--- NOTE | 2018-09-15 16:53 | PC.NURSE ---
1615: Awake, resting in bed. IV fluids D5NS/KCL via double lumen PICC in lt upper arm. PICC dressing CDI. NGT in place clamped per provider. Abdominal jose are open to air, no drainage noted along incision. Pt denies nausea, 5/10 pain in abdomen, reports improvement since pain medications given at 1445.
[2018-09-15] MEDS: HYDROMORPHONE 1 MG INJ IV ×2 (17:45→23:48)
[2018-09-15] MEDS: FAT EMULSIONS 50 GM/250 ML EMULSION IV (19:00)
[2018-09-15] MEDS: AA 5 %/CALCIUM/LYTES/DEXT 20 % 1,000 ML with MULTIVITAMIN 10 ML, TRACE ELEMENTS 1 ML 42.125 ML IV (19:00)
[2018-09-16] VITALS (9 sets, daily range): BP systolic 140–169; BP diastolic 66–86; PULSE 61–70; RESP 18–20; TEMP 36.3–36.9; O2SAT 93–97
[2018-09-16] MEDS: DEXTROSE 5%-NS W/KCL 20MEQ 1,000 ML 42 MEQ IV (00:57)
[2018-09-16] MEDS: HYDROMORPHONE 1 MG INJ IV ×5 (05:48→21:39)
[2018-09-16] MEDS: BENZOCAINE/MENTHOL 1 LOZ PKT 1 EACH PO (05:55)
--- NOTE | 2018-09-16 06:39 | PC.NURSE ---
Pt. ambulated with 1 person assist using a gaitbelt and pts. own walker around the [facility] nurses station x 5 loops. Pt. tolerated well. Back to bed and bed alarm on.
[2018-09-16] MEDS: PANTOPRAZOLE 40 MG VIAL IV (08:57)
[2018-09-16] MEDS: ENOXAPARIN 40 MG/0.4 ML SYRINGE SUBCUT (08:57)
--- NOTE | 2018-09-16 10:27 | CM.DPNOTE ---
DCP: continued: Case received, EMR reviewed. Discussed case in Team Rounds. PT and OT state pt at this point will be fine with the home setting and his 's prn support. NG to suction is out. RN coordinator confirms TPN still in place. P: at this point plan remains home with 's supportive care when deemed stable for same from a surgical perspective.
--- NOTE | 2018-09-16 13:04 | PM.PN.1 ---
Subjective Date Patient Seen: 09/16/18 Time Patient Seen: 13:04 Interval history: Denys is in good spirits. He denies any nausea. He has walked 4 times in the halls and continues to pass flatus. Since he ate, he has developed significantly more abdominal distention. He says his belly feels full but that this comes and goes for him. He also admits that he feels he needs to have a bowel movement but he has not been able to do so yet. Exam Vital Signs (past 8 hours): - 09/16/18 07:58 09/16/18 08:09 09/16/18 11:48 Temperature 97.3 F L 97.6 F Pulse Rate 70 66 Respiratory Rate 20 18 Blood Pressure 169/77 H 147/75 H Pulse Oximetry 97 96 97 Fraction of Inspired Oxygen 28 Oxygen Delivery Method Room Air Oxygen Flow Rate 0 Narrative Exam Narrative: Abdomen is soft and rotund with active bowel sounds. Tympanic to percussion. Wound continues to be clean. Lungs: Clear bilaterally Heart: Regular rate and rhythm Extremities: Trace edema Objective Labs Result Diagrams: 09/15/18 05:05 09/15/18 05:05 Assessment & Plan Plan: Assessment/Plan Narrative: Very pleasant 83-year-old man who is status post laparotomy for small bowel obstruction. He will continue to walk in the halls. Dulcolax suppository today. Low-dose Reglan. Discontinue TPN. I will leave IV Protonix and pain medication as I do not think he is taking adequate p.o. and oral versions of these may make him nauseated. Quality VTE Deep Vein Thrombosis/Pulmonary Embolism Present on Admission: No
--- NOTE | 2018-09-16 14:19 | OT.IP.TRT ---
Current Diagnoses Unspecified intestinal obstruction, unspecified as to partial versus complete obstruction (09/10/18) Surgery Performed Operation Date: 09/10/18 16:00 Actual Procedures p Exploratory Laparotomy LYSIS OF ADHESION - Kalyan Dyer MD Occupational Therapy Treatment Note M2 OT-IP Current Condition Start: 09/14/18 15:43 Freq: Status: Active Protocol: Document 09/14/18 12:18 PJM (Rec: 09/14/18 16:01 PJM [id number]) Occupational Therapy Current Condition Current Condition Evaluation Date 09/14/18 Treatment Diagnosis decreased self care s/p SBO w/ ex lap, lysis of adhesions , ileus Post Operative Precautions Abdominal Surgery Precautions Log Roll Lifting Restrictions Gait Belt above Incisional Area Other Precautions NG tube, supplemental O2, IV/ TPN M3 OT- IP Subjective and Pain Start: 09/14/18 15:43 Freq: Status: Active Protocol: Document 09/16/18 14:19 PJM (Rec: 09/16/18 16:31 PJ [id number]) OT- Subjective Occupational Therapy Visit Type Type Treatment Note Visit Start Time 13:40 Visit Stop Time 14:19 Total Visit Minutes 39 Notes here this session. NG suction has been discontinued and pt started on clear liquid diet today. Occupational Therapy Visit Comments Patient Comments That shower felt really good. Patient/Caregiver Goals to have a bowel movement so I can go home OT Pain Assessment Pain When Pain Assessed After Treatment Pain Present Pain Present Denied Pain M4 OT- IP ADL's Start: 09/14/18 15:43 Freq: Status: Active Protocol: Document 09/16/18 14:19 PJM (Rec: 09/16/18 16:31 PJ [id number]) OT ADL-Grooming General Evaluation Grooming Ability Independent Areas Needing Assistance Combing/Brushing Hair Face Washing Comments OT Grooming Comments standing at sink OT ADL-Oral Care General Eval Oral Care Ability Independent Areas of Assistance Managing Dentures Comments Oral Care Comments standing at sink 4-5 min total OT ADL-Dressing General Eval Lower Body Dressing Ability Independent Areas Needing Assistance Underpants/Brief Socks OT ADL-Toileting General Evaluation Toileting Ability Independent OT ADL-Bathing Bathing Type Bathing Type Shower General Evaluation Bathing Ability Standby Assistance Devices Bathing Equipment Shower Chair with Arms Grab Bars Comments OT Bathing Comments Pt stood for 80 % of shower, sitting only to wash and dry lower legs and feet. Pt plans to use long bath sponge at home. Pt did use grab bars lightly about 20% of the time. states their shower stall at home is too small, for grab bar installation of shower seat use; but she can provide SBA to pt at home. M5 OT- IP IADL's Start: 09/14/18 15:43 Freq: Status: Active Protocol: Document 09/14/18 12:18 PJM (Rec: 09/14/18 16:01 PJ [id number]) OT-Instrumental Activities of Daily Living Deficits IADL Deficits Identified Deficits Home Safety Awareness Awareness of Need for Assistance at Home Good Awareness Ability to Problem Solve Emergency Able to Problem Solve Situations Medication Management Medication Management Caregiver Provides Supervision Money Management Money Management No Deficits Identified Meal Preparation Meal Preparation Caregiver Provides Assist Home Health Care Respiratory Therapist Home Health Care Respiratory Therapist Caregiver Provides Assist Driving Driving Caregiver Provides Assist Driving Comments until pt able M6 OT- IP Functional Cognition Start: 09/14/18 15:43 Freq: Status: Active Protocol: Document 09/16/18 14:19 PJM (Rec: 09/16/18 16:31 [facility] [id number]) Cognitive Factors Limiting Selfcare Function Cognitive Ability Level of Alertness Alert Patient Orientation Name Age Birthday Month Date Year Day of Week Place Situation Attention Span Ability Capable of Focused Attention Capable of Sustained Attention Ability to Follow Commands Able to Follow One Step Commands Memory Description No Deficits Noted Safety Awareness No Deficits Noted Cognitive Comments Cognitive Assessment Comments reports pt's cognition appears to be at baseline. M7 OT- IP Mobility and Balance Start: 09/14/18 15:43 Freq: Status: Active Protocol: Document 09/16/18 14:19 PJM (Rec: 09/16/18 16:31 [facility] [id number]) OT- Bed Mobility Assessment Rolling Type of Rolling Roll to Right Level of Assistance Independent Supine to Sit Supine to Sit Assist Independent Sit to Supine Sit to Supine Assist Independent Scooting Scooting to Edge of Bed Independent Scooting Up and Down in Bed Independent OT-Transfer Assessment Sit to and From Stand Sit to and from Stand Independent Transfers Transfer Ability Standby Assistance Technique Transfer Destination Shower Stall Transfer Technique Stand Step Pivot Devices Transfer Assistive Devices 4 Wheeled Walker Comments Mobility Comments Light use of grab bar to enter shower stall OT- Gait Assessment Gait Gait Assistance Required: Independent Distance (Feet) 25 Assistive Devices Assistive Device 4 Wheeled Walker OT- Balance Assessment Sitting Balance and Reactions Static Sitting Balance Ability Normal Dynamic Sitting Balance Ability Good Standing Balance and Reactions Static Standing Balance Ability Good Dynamic Standing Balance Ability Good Comments Other Balance Tests/Deviations/Treatment No LOB with standing shower : even when eyes closed for hair washing. 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 M9 OT- IP Assessment and Plan Start: 09/14/18 15:43 Freq: Status: Active Protocol: Document 09/16/18 14:19 PJM (Rec: 09/16/18 16:31 PJM [id number]) OT Summary Assessment and Plan Summary Progress Towards Goals Safe For Discharge Goals Met Assessment Summary Pt did very well with standing shower this PM, as noted above. All OT goals achieved for this admission. Anticipate pt will d/c home with 24 hr assist from when medically stable. P.T. has already cleared pt for d/c. No further OT services needed. Frequency of Treatment Frequency Of Treatment Discharge Discharge Recommendations OT Discharge Recommendations Home with 24/7 Assist Other Discharge Recommendations no further OT services needed
[2018-09-16] MEDS: METOCLOPRAMIDE 10 MG/2 ML INJ 5 MG IV ×2 (14:26→21:39)
[2018-09-16] MEDS: BISACODYL 10 MG SUPP PR (14:34)
[2018-09-17] VITALS (9 sets, daily range): BP systolic 139–167; BP diastolic 67–80; PULSE 63–88; RESP 16–20; TEMP 36.6–36.9; O2SAT 93–96
[2018-09-17] MEDS: DEXTROSE 5%-NS W/KCL 20MEQ 1,000 ML 42 MEQ IV (01:39)
[2018-09-17] MEDS: HYDROMORPHONE 1 MG INJ IV (04:39)
[2018-09-17] MEDS: METOCLOPRAMIDE 10 MG/2 ML INJ 5 MG IV ×3 (05:37→20:54)
[2018-09-17] MEDS: SODIUM CHLORIDE 0.9% FLUSH 10 ML IV ×2 (09:35→20:54)
[2018-09-17] MEDS: PANTOPRAZOLE 40 MG VIAL IV (09:38)
[2018-09-17] MEDS: ENOXAPARIN 40 MG/0.4 ML SYRINGE SUBCUT (09:38)
[2018-09-17] MEDS: INFLUENZA HD VACCINE 0.5 ML SYRINGE IM (12:17)
--- NOTE | 2018-09-17 14:17 | PN_ITS ---
DATE OF SERVICE: 09/17/2018 SUBJECTIVE: Patient is 10 days postoperative laparotomy for small bowel obstruction. Doing better now. Tolerating a clear liquid diet. His NG tube was removed a couple days ago. He had a bowel movement yesterday. He's actually hungry, would like to try some solid food. OBJECTIVE: His incision is healing well. His abdomen is soft. He does have active bowel sounds. IMPRESSION: The plan here is to convert him from IV narcotics to an oral analgesic, stop his IV Protonix, stop his IV fluids, put him on oral Protonix, and try advancing diet as tolerated. If he's able to hand solid foods, I will discharge the patient tomorrow. LouisDenys - Telma/fernando doc#: [id number]/job#: [id number] dd: 09/17/2018 11:43:00 dt: 09/17/2018 14:13:00 DICTATING /COPIES TO: Sebastian Patton MD COPIES MNE: TORREY
[2018-09-17] MEDS: PANTOPRAZOLE 20 MG TABLET PO (20:54)
[2018-09-17] MEDS: BENZOCAINE/MENTHOL 1 LOZ PKT 1 EACH PO (21:50)
--- NOTE | 2018-09-17 22:56 | PC.NURSE ---
Pt has requested little from staff this evening shift. Urinal use independently and did request FROZEN FOODS MANAGER assist with ambulation. CPAP for sleep is available at bedside. Taking diet well. Declines to wear SCD's. Reports plans to discharge to home tomorrow. FROZEN FOODS MANAGER observed rash to pt's back and pt reports this is chronic and is under care of a color room attendant for same. Reports passing flatus.
[2018-09-17] MEDS: HYDROCODONE/ACET 5/325 TABLET 1 TAB PO (23:40)
[2018-09-18 04:42] VITALS: BP 147/77; PULSE 66; RESP 16; TEMP 36.4; O2SAT 96
[2018-09-18] MEDS: HYDROCODONE/ACET 5/325 TABLET 1 TAB PO (05:54)
[2018-09-18] MEDS: SODIUM CHLORIDE 0.9% FLUSH 10 ML IV ×2 (05:54→09:14)
[2018-09-18] MEDS: PANTOPRAZOLE 20 MG TABLET PO (05:54)
[2018-09-18] MEDS: METOCLOPRAMIDE 10 MG/2 ML INJ 5 MG IV (05:54)
[2018-09-18 07:36] VITALS: BP 133/72; PULSE 60; RESP 18; TEMP 36.8; O2SAT 96
[2018-09-18 07:48] VITALS: O2SAT 96
[2018-09-18] MEDS: ENOXAPARIN 40 MG/0.4 ML SYRINGE SUBCUT (09:13)
--- NOTE | 2018-09-18 13:20 | PC.NURSE ---
Discharge: Pt dressed in own clothing with belongings, took four wheeled walker down to POV. Discharge instructions given, wound care explained, pt acknowledged understanding. PICC line was removed with no difficulties and covered with bacitracin, a folded 2x2, and a clear occlusive dressing. Pt wheeled out in a wheelchair with BOOT AND SHOE REPAIRMAN to POV.
--- NOTE | 2018-09-24 15:44 | DS_ITS ---
ADMISSION DATE: 09/10/2018 DISCHARGE DATE: 09/18/2018 Patient's about 10 days post exploratory laparotomy for a small-bowel obstruction, enterolysis. Subjectively, the patient is beautifully. He's eating a solid diet, passing flatus. He had a bowel movement yesterday, none yet today but he feels like he will soon. Abdomen is soft. Incision's healing nicely. Key are intact. There's no sign of wound infection. On physical exam, he's afebrile. Again, he has a soft nontender abdomen. He's sitting up in a chair. Ambulating nicely as well. No signs of infection or peritonitis. He has has active bowel sounds. PLAN: Discharge home today, resume his normal diet. Resume his home medications including aspirin, acetaminophen only for pain, stool softener, and his simvastatin 20 mg a day. He will be seen back in the office this week. I advised patient to do no heavy lifting or straining and to resume his still softener at home. He may also resume his normal diet. Denys Myers - /swati/ doc#: [id number]/job#: [id number] dd: 09/18/2018 12:56:00 dt: 09/19/2018 09:30:00 DICTATING /COPIES TO: Sebastian Patton MD COPIES MNE: TORREY
== END 2018-09-18 13:23 | disposition home or self-care (01) | DRG 337 ==
LOC: ED 09-10 02:22 → AC 09-10 02:45
PROVIDERS: Surgery; Admitting Provider Specialist; Emergency Provider Emergency Medicine; Visit Provider Specialist
PROC: 0DNB0ZZ Release Ileum, Open Approach (ICD-10-PCS; CPT 49000; principal; 2018-09-10 16:00)
DX: K56.50 Intestinal adhesions [bands], unspecified as to partial versus complete obstruction (principal); K56.7 Ileus, unspecified; N40.0 Benign prostatic hyperplasia without lower urinary tract symptoms; R00.1 Bradycardia, unspecified; Z95.0 Presence of cardiac pacemaker; E78.5 Hyperlipidemia, unspecified; Z87.891 Personal history of nicotine dependence; K57.30 Diverticulosis of large intestine without perforation or abscess without bleeding; Z23 Encounter for immunization; R41.0 Disorientation, unspecified; T40.605A Adverse effect of unspecified narcotics, initial encounter
CPT/HCPCS: 36415; 36569; 36591; 44005; 49000; 71045; 74177; 80048; 80053; 82962; 83605; 83690; 83735; 84100; 85025; 85651; 86140; 86850; 86900; 86901; 90471; 90662; 93005; 93010; 94760; 94762; 94770; 96361; 96374; 97116; 97162; 97165; 97530; 97535; 99282; 99285; B4189; C9113; J0360; J1100; J1170; J1642; J1650; J2060; J2270; J2405; J2704; J2765; J3010; Q9967

== ENCOUNTER → 2018-10-15 09:31 | Outpatient (CLI) | payer MEDICARE, OTHER, SELFPAY ==
[2018-09-10 03:26] VITALS: BMI 28.3
[2018-10-07 14:52] VITALS: BMI 28.3
--- NOTE | 2018-10-15 | DI.NM.S_ITS ---
PROCEDURE: NM BONE SCAN WHOLE BODY RADIOPHARMACEUTICAL: 20.3 mCi Tc-99m MDP IV. INDICATIONS: CHRONIC PAIN OF RIGHT KNEE TECHNIQUE: Delayed whole-body scintigrams were obtained approximately 3-4 hours after intravenous injection of radiotracer. Anterior and posterior views were acquired from vertex to feet. No dominant O. COMPARISON: [facility], CT, CT ABDOMEN PELVIS W CON, 09/10/2018, 0:50. 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 There is degenerative disc disease identified at the thoracolumbar junction area, at approximately the T10-T11 level of transition from effusion 2 unfused low thoracic spine above that level. Additionally, the transition from fused 2 unfused at L3-4 shows prominent isotope uptake, consistent with the secondary degenerative disc disease accentuated by fusion between these levels. Normal-appearing bilateral total knee arthroplasties. Note is made of asymmetric increased isotope deposition at the base of the thumb. IMPRESSION: No acute disease. Fusion has occurred along the thoracolumbar junction and upper two thirds of the lumbosacral spine, with degenerative disc disease and secondary elevated isotope deposition at the transition points above and below the levels of fusion. Prior total knee arthroplasty procedures, without evidence of device loosening or disruption by nuclear medicine bone scan imaging. Dictated by: Dennis Haddad M.D. on 10/15/2018 at 14:43 Approved by: Dennis Haddad M.D. on 10/15/2018 at 14:49
== END ==
PROVIDERS: Visit Provider Orthopaedic Surgery
DX: M25.561 Pain in right knee (principal); M19.011 Primary osteoarthritis, right shoulder; M51.36 Other intervertebral disc degeneration, lumbar region; M51.35 Other intervertebral disc degeneration, thoracolumbar region; G89.29 Other chronic pain; Z96.653 Presence of artificial knee joint, bilateral
CPT/HCPCS: 78306; A9503

== ENCOUNTER → 2019-04-06 09:31 | Outpatient (CLI) | payer MEDICARE, OTHER, SELFPAY ==
[2018-10-07 14:52] VITALS: BMI 28.3
[2019-04-06 10:39] LABS: Blood Urea Nitrogen 26 mg/dL (9-20); Calcium 9.6 mg/dL (8.4-10.2); Carbon Dioxide 25 mmol/L (22-32); Chloride 104 mmol/L (98-107); Glucose 108 mg/dL (80-110); HEMOLYSIS < 15 (0-50); Potassium 4.5 mmol/L (3.4-5.1); Sodium 141 mmol/L (137-145)
== END ==
PROVIDERS: Visit Provider Internal Medicine Cardiovascular Disease
DX: I48.91 Unspecified atrial fibrillation (principal); I48.0 Paroxysmal atrial fibrillation
CPT/HCPCS: 36415; 80048

== ENCOUNTER 2019-10-05 22:41 | Inpatient (IN) | payer MEDICARE, OTHER, SELFPAY ==
[2018-10-07 14:52] VITALS: BMI 28.3
[2019-10-05 22:41] VITALS: BP 166/126; PULSE 77; RESP 18; TEMP 37; O2SAT 96
--- NOTE | 2019-10-05 22:57 | PC.NURSE ---
Patient had surgery one year ago in August by DR Dyer. His bowels where tucked up under his appy scar tissue. Patient had his intestines rearranged
[2019-10-05 23:07] LABS: INR 1.2 (0.9-1.3); Prothrombin Time 13.9 SECONDS (10.1-12.7)
[2019-10-05 23:09] LABS: PTT Partial Thromboplastin Tim 43 SECONDS (26.4-36.2)
[2019-10-05 23:11] LABS: Alanine Aminotransferase 18 IU/L (<50); Albumin 4.8 g/dL (3.5-5.0); Albumin Globulin Ratio 1.5 (1.0-2.8); Alkaline Phosphatase 72 U/L (38-126); Aspartate Aminotransferase 31 IU/L (17-59); Bilirubin Total 0.4 mg/dL (0.2-1.3); Blood Urea Nitrogen 28 mg/dL (9-20); Calcium 9.9 mg/dL (8.4-10.2); Carbon Dioxide 28 mmol/L (22-32); Chloride 101 mmol/L (98-107); Estimated Glomerular Filt Rate 48.5 mL/min (>60); Globulin 3.2 g/dL (1.7-4.1); Glucose 137 mg/dL (80-110); HEMOLYSIS < 15 (0-50); Lipase 149 U/L (23-300); Potassium 4.1 mmol/L (3.4-5.1); Sodium 139 mmol/L (137-145)
[2019-10-05 23:17] LABS: Add Manual Diff / Slide Review NO; Basophils Absolute Auto 0 /uL (0-100); Basophils Percent Auto 0.4 % (0-2); Eosinophils Absolute Auto 200 /uL (0-450); Hematocrit 42.7 % (41-53); Hemoglobin 14.2 g/dL (13.5-17.5); Lymphocytes Absolute Auto 1900 /uL (1100-4500); Lymphocytes Percent Auto 19.2 % (25-40); Mean Corpuscular HGB Conc 33.2 % (30-36); Mean Corpuscular Volume 87.3 fL (80-100); Monocytes Absolute Auto 800 /uL (0-900); Monocytes Percent Auto 7.8 % (3-14); Neutrophils Absolute Auto 6800 /uL (1500-7000); Neutrophils Percent Auto 70.6 % (50-75); Platelet Count 198 X10^3/uL (150-400); Red Blood Cell Count 4.89 X10^6/uL (4.5-5.9); Red Cell Distribution Width 14.9 % (11.6-14.8); White Blood Cell Count 9.6 X10^3/uL (4.5-11.0)
--- NOTE | 2019-10-05 23:47 | ED_ITS ---
HPI - Abdominal Pain General Chief Complaint: Abdominal Pain Stated Complaint: Abdominal pain Time Seen by Provider: 10/05/19 23:47 Source: patient Mode of arrival: Ambulatory Limitations: no limitations History of Present Illness HPI narrative: The patient presents with concern for possible small bowel obstruction. He was well earlier today. He had only a small bowel movement, but no abdominal discomfort. Actually ate dinner about 7:00 p.m.. Since then he has developed abdominal pain and progressive bloating. He has nausea, he has had no emesis. He feels he has an SBO once again. He presented here 13 months ago with a bowel obstruction that required surgery, with lysis of adhesions. He has a prior history of appendectomy, multiple back surgeries and neck surgeries. He has no other abdominal pelvis surgeries. He has no fever chills with current symptoms. He has no urinary complaints. he is alert and cooperative, a clear historian. Of note, there are not intact medical records regarding his cardiac condition here at [facility]. His history sounds as he if he had sinus pauses . A executive producer was applied, a pacemaker was placed shortly after the cardiac evaluation. He is anticoagulated on Xarelto, but has not had cardiac issues since the pacemaker was placed. Related Data Home Medications Medication Instructions Recorded Confirmed doxazosin 8 mg PO BEDTIME #0 11/03/11 10/06/19 finasteride 5 mg PO QDAY #0 11/03/11 10/06/19 simvastatin 20 mg PO BEDTIME #0 11/03/11 10/06/19 C,E,zinc,copper [id number] 1 cap PO BEDTIME 10/06/19 10/06/19 [Ocuvite Adult 50 Plus] acetaminophen 650 mg PO BEDTIME 10/06/19 10/06/19 acetaminophen 650 mg PO QAM 10/06/19 10/06/19 aspirin 81 mg PO DAILY 10/06/19 10/06/19 docusate sodium [Colace] 100 mg PO BID 10/06/19 10/06/19 loratadine 10 mg PO DAILY 10/06/19 10/06/19 [id number]-lycopen-lutein 1 tab PO DAILY 10/06/19 10/06/19 [Men 50 Plus Multivitamin] rivaroxaban [Xarelto] 20 mg PO BEDTIME 10/06/19 10/06/19 Allergies Allergy/AdvReac Type Severity Reaction Status Date / Time No Known Allergies AdvReac Verified 10/05/19 22:56 Review of Systems Review of Systems ROS Unobtainable: All systems reviewed & are unremarkable except as noted in HPI and below Constitutional Constitutional: Denies difficulty sleeping, Denies fever(s), Denies increased appetite, Denies lethargy and Denies weakness ENT Ears, Nose, Mouth, and Throat: Denies dizziness, Denies hoarseness, Denies disequilibrium and Denies sore throat Cardiovascular Cardiovascular: Denies chest pain, Denies irregular heart rhythm, Denies lightheadedness, Denies dyspnea and Denies dyspnea on exertion Respiratory Respiratory: Denies cough, Denies dyspnea, Denies dyspnea on exertion and Denies wheezing Gastrointestinal Gastrointestinal: Reports abdominal pain, Reports bloating, Denies diarrhea, Reports nausea and Denies vomiting Genitourinary Genitourinary: Denies dysuria Musculoskeletal Musculoskeletal: Denies back pain Integumentary/Breasts Skin/Breast: Denies erythema, Denies rash and Denies wounds Neurologic Neurologic: Denies confusion, Denies dizziness, Denies disequilibrium and Denies weakness Psychiatric Psychiatric: Denies anxiety and Denies confusion Allergic/Immunologic Allergic/Immunologic: Denies wheezing Patient History Medical History (Updated 10/06/19 @ 02:19 by Denys Washington MD) BPH (benign prostatic hyperplasia) (Chronic) Bradycardia (Chronic) 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) Hyperlipidemia (Chronic) 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) SBO (small bowel obstruction) (Acute) Surgical History (Updated 10/06/19 @ 02:14 by Denys Washington MD) H/O exploratory laparotomy (Acute) Status post appendectomy (Resolved) Status post cervical spinal fusion (Resolved) Status post lumbar spine operation (Chronic) Family History Other Adopted Social History marital status: household members: spouse Smoking Status: Former smoker alcohol intake: never alcohol intake frequency: 0-2 drinks per day Substance Use Type: does not use Exam Initial Vital Signs Initial Vital Signs: Vital Signs Temperature 98.6 F 10/05/19 22:41 Pulse Rate 77 10/05/19 22:41 Respiratory Rate 18 10/05/19 22:41 Blood Pressure 166/126 H 10/05/19 22:41 Pulse Oximetry 96 10/05/19 22:41 Const General: cooperative and well developed Nutritional Appearance: well nourished Orientation: alert, awake, oriented x3 and not confused [facility] Mouth: oral mucosae normal and oropharynx normal Eyes Conjunctivae: conjunctivae normal Neck Neck: No JVD Chest Chest: normal inspection of the chest Resp Effort & Inspection: normal respiratory effort, able to speak in complete sentences, no respiratory distress and no use of accessory muscles Auscultation: clear to auscultation bilaterally, no rales, no rhonchi and no wheezes Cardio Rate: regular rate Rhythm: regular rhythm Heart Sounds: no click, no gallops, no murmurs and no rubs Pulses: normal peripheral pulses GI Inspection: distended Palpation: No guarding, No mass and tender (Without guarding or rebound) Percussion: tympanic to percussion Auscultation: abnormal bowel sounds (Right loya bowel sounds) Back/Spine/Pelvis Back: No CVA tenderness Skin General: no rashes or lesions noted and No petechiae Neuro General: alert, oriented x3, gait normal and no focal motor deficits Speech: speech normal Course Course Course Narrative: The patient vomited about 750 mL of fluid prior to the NG placement. He has had another 4 mL out with the NG in place. His abdominal pain is greatly improved. CT is consistent with a partial small-bowel obstruction. He has no fever, the WBC count is not elevated. He has improved significantly prior to admission. His case was discussed with surgery, Dr. Monreal. The patient will be admitted for observation to the surgical service. Orders Ordered: ED Orders 10/05/19 22:50 Complete Blood Count AUTO DIFF Stat Comprehensive Metabolic Panel Stat Lipase Stat Partial Thromboplastin Time Stat Prothrombin Time INR Stat 10/05/19 22:59 EKG-12 Lead Stat 10/05/19 23:53 CT abdomen pelvis w con Stat Sodium Chloride (Normal Saline 0.9%) 1,000 mls @ 250 mls/hr IV CONT MACARIO Last Admin: 10/06/19 00:17 Dose: 250 mls/hr Documented by: KORI Discontinued Medications Hydromorphone HCl (Dilaudid) 1 mg IV NOW ONE Stop: 10/05/19 23:54 Last Admin: 10/06/19 00:17 Dose: 1 mg Documented by: KORI Lidocaine HCl (Xylocaine 1%) 1 ml INJ NOW ONE Stop: 10/06/19 00:44 Last Admin: 10/06/19 01:18 Dose: Not Given Documented by: KORI Ondansetron HCl (Zofran) 4 mg IV NOW ONE Stop: 10/05/19 23:54 Last Admin: 10/06/19 00:17 Dose: 4 mg Documented by: KORI Vital Signs Vital signs: Vital Signs - 8 hr 10/05/19 22:41 10/06/19 00:28 10/06/19 00:45 Temperature 98.6 F Pulse Rate 77 70 85 Respiratory Rate 18 18 18 Blood Pressure 166/126 H Blood Pressure [Left Arm] 161/81 H 197/75 H Pulse Oximetry 96 98 98 10/06/19 01:04 10/06/19 01:33 Temperature Pulse Rate 86 87 Respiratory Rate 12 94 H Blood Pressure Blood Pressure [Left Arm] 189/81 H 159/73 H Pulse Oximetry 98 94 MDM - Abdominal Pain Lab Data Result diagrams: 10/05/19 22:50 10/05/19 22:50 Labs: Lab Results 10/05/19 10/05/19 10/05/19 Range/Units 22:50 22:50 22:50 WBC 9.6 (4.5-11.0) X10^3/uL RBC 4.89 (4.5-5.9) X10^6/uL Hgb 14.2 (13.5-17.5) g/dL Hct 42.7 (41-53) % MCV 87.3 (80-100) fL MCH 29.0 (26-34) PG MCHC 33.2 (30-36) % RDW 14.9 H (11.6-14.8) % Plt Count 198 (150-400) X10^3/uL Neut % (Auto) 70.6 (50-75) % Lymph % (Auto) 19.2 L (25-40) % [place] % (Auto) 7.8 (3-14) % Eos % (Auto) 2.0 (2-4) % Baso % (Auto) 0.4 (0-2) % Neut # (Auto) 6800 (8038-7721) /uL Lymph # (Auto) 1900 (7655-6767) /uL [place] # (Auto) 800 (0-900) /uL Eos # (Auto) 200 (0-450) /uL Baso # (Auto) 0 (0-100) /uL PT 13.9 H (10.1-12.7) SECONDS INR 1.2 (0.9-1.3) APTT 43 H (26.4-36.2) SECONDS Sodium 139 (137-145) mmol/L Potassium 4.1 (3.4-5.1) mmol/L Chloride 101 (98-107) mmol/L Carbon Dioxide 28 (22-32) mmol/L BUN 28 H (9-20) mg/dL Creatinine 1.40 H (0.66-1.25) mg/dL Estimated GFR 48.5 L (>60) mL/min BUN/Creatinine Ratio 20.0 (6-22) Glucose 137 H (80-110) mg/dL Calcium 9.9 (8.4-10.2) mg/dL Total Bilirubin 0.4 (0.2-1.3) mg/dL AST 31 (17-59) IU/L ALT 18 (<50) IU/L Alkaline Phosphatase 72 (38-126) U/L Total Protein 8.0 (6.3-8.2) g/dL Albumin 4.8 (3.5-5.0) g/dL Globulin 3.2 (1.7-4.1) g/dL Albumin/Globulin Ratio 1.5 (1.0-2.8) Lipase 149 (23-300) U/L Imaging Data CT scan - abdomen: Radiologist's impression: Mild partial small-bowel obstruction of the distal jejunum. ECG Data Attestation: I personally reviewed and interpreted this ECG as follows: (Normal sinus rhythm 80 beats per minute. Nonspecific ST T wave changes. Normal intervals. No ectopy. No arrhythmia.) Critical Care Time Critical Care Time Critical Care Time: Yes Total Critical Care Time: 30 Attestation: Care included the initial patient assessment, review of medical records, review of radiology, EKG and back, and discussion of the results with the patient and the admitting surgeon. Discharge Plan Departure Patient Disposition: Admitted as Observation Clinical Impression: SBO (small bowel obstruction) Admit Date/Time: 10/06/19 02:08 Admit Provider: Jaylen Monreal
--- NOTE | 2019-10-05 23:53 | DI.CT.S_ITS ---
PROCEDURE: CT ABDOMEN PELVIS W CON INDICATIONS: Abdominal pain and distention TECHNIQUE: After the administration of intravenous contrast, 5 mm thick sections acquired from the diaphragm to the symphysis. 5 mm coronal and sagittal reformats were acquired. For radiation dose reduction, the following was used: automated exposure control, adjustment of mA and/or kV according to patient size. COMPARISON: [facility], CT, ABD/PELVIS W/O CON (PNL), 05/29/2014, 19:58. [facility], CR, XR CHEST 1V, 09/13/2018, 9:50. [facility], CT, CT ABDOMEN PELVIS W CON, 09/10/2018, 0:50. FINDINGS: Image quality: Excellent. ABDOMEN: Lung bases: Lung bases are clear. Heart size is normal. Solid organs: There is hepatic steatosis. Liver is normal in size and enhancement. Gallbladder contains a small gallstone. Biliary system is non dilated. Pancreas enhances normally. Spleen is normal in size and enhancement. No adrenal nodules. Kidneys demonstrate normal size and enhancement, without hydronephrosis. Peritoneum and bowel: Stomach is distended. There is a masslike density in the gravity dependent stomach measuring 6.9 x 9.4 cm Small bowel loops are mildly distended and filled with fluid. There is transitional point in the distal ileum, consistent with distal small bowel obstruction. There are scattered colonic diverticula. No free fluid or air. Nodes and vessels: No retroperitoneal or mesenteric adenopathy by size criteria. Aorta and inferior vena cava are normal in size. Severe atherosclerosis of distal aorta and iliac arteries. There is a bifid stent in the distal abdominal aorta. Miscellaneous: Tiny fat containing umbilical hernia is noted. PELVIS: Genitourinary: Bladder wall thickness is normal. Miscellaneous: No inguinal hernias or adenopathy. Bones: No suspicious bony lesions. No vertebral body compression fractures. Severe degenerative changes in the lower thoracic and lumbar spine. There is laminectomy and posterior fusion. IMPRESSION: 1. Distal small bowel obstruction. 2. Cholelithiasis. 3. A masslike density in the gravity dependent stomach measuring 6.9 x 9.4 cm. differential diagnoses include mass, hematoma and food debris. If clinically indicated, upper GI series or upper endoscopy may be obtained for further evaluation. 4. Hepatic steatosis. 5. Diverticulosis without acute diverticulitis. 6. Severe atherosclerosis. 7. Degenerative and postsurgical changes in the lower thoracic and lumbar spine. Dictated by: Darline Henriquez M.D. on 10/06/2019 at 8:40 Approved by: Darline Henriquez M.D. on 10/06/2019 at 10:05
[2019-10-06] VITALS (27 sets, daily range): BP systolic 107–197; BP diastolic 54–89; PULSE 70–94; RESP 12–94; TEMP 36.4–37; O2SAT 13–98; BMI 27.0
--- NOTE | 2019-10-06 | PATH_ITS ---
[facility] Accession Number: [id number] . 01 Material submitted: . small bowel - SMALL BOWEL SEGMENTS X2 . 01 Clinical history: . ABDOMINAL PAIN . 02 Diagnosis: Small Bowel, Segments x2, Resections: Segment of small bowel with patchy severely active enteritis including erosions, and pseudopyloric metaplasia consistent with chronic inflammation. Please see comment. Second segment of small bowel with ischemia-type changes. Negative for granulomas, dysplasia and malignancy. MRV 10/10/2019 1209 Local . 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 There is no evidence of dysplasia or malignancy. . 02 Electronically signed: . Cinda Duran MD, Pathologist NPI- [id number] . 01 Gross description: . The specimen is received in a formalin-filled container labeled small bowel segments and consists of two pink-romero, smooth, intact segments of bowel, 4.5 x 1.6 cm and 6.5 x 2.8 cm. The ends of each segment of bowel are received stapled closed, and there is a scant amount of adherent adipose tissue. There is a 1.0 x 0.7 cm transmural defect along the serosal surface near one pole of the smaller segment of bowel, which is 0.7 cm from the nearest stapled margin. The mesenteric margins are inked green. Within the longer segment of bowel is a focal area of slightly hemorrhagic raised mucosa, 2.0 x 1.0 x 0.5 cm, that is 2.5 cm from either stapled margin. The remaining bowel mucosa is pink-romero, unremarkable, with the usual folds. A distinct mass is not grossly identified, and the bowel wall thickness averages 0.3 cm. Sectioning of the adipose tissue reveals yellow, fatty cut surfaces without any lymph node grossly identified. . Traveling Crane Operator sections are submitted as follows: A1 - patient intake representative sections of proximal and distal bowel margins from longer segment of bowel en face; A2-A3 - raised area of mucosa from longer segment of bowel including uninvolved mucosa; A4 - patient intake representative sections of proximal and distal bowel margins from shorter segment of bowel en face; A5 - patient intake representative sections of shorter segment of bowel including transmural defect. ([id number]) /R 10/08/2019 [facility] Local . 02 Pathologist provided ICD-10: R10.9, K55.011 . 02 CPT . [id number] Performed at: 01 [facility] [address] [facility], [place], [place] [id number] MD Yassine Kim MD Phone: [phone] Performed at: 02 [facility] [place] [address] [place], [place] [id number] MD Cinda Duran MD Phone: [phone]
[2019-10-06] MEDS: ONDANSETRON 4 MG/2 ML INJ IV (00:17)
[2019-10-06] MEDS: HYDROMORPHONE 1 MG INJ IV (00:17)
[2019-10-06] MEDS: SODIUM CHLORIDE 0.9% 1,000 ML 250 ML IV (00:17)
[2019-10-06] MEDS: LIDOCAINE 1% (PF) 2 ML (00:51)
--- NOTE | 2019-10-06 01:03 | PC.NURSE ---
gross gastric contents out > 500 cc, brown tinged. Pt states he feels improved after insertion. + placement via gastric contents and air bolus.
--- NOTE | 2019-10-06 02:24 | DI.RAD.S_ITS ---
PROCEDURE: XR KUB INDICATIONS: Small bowel obstruction TECHNIQUE: One view of the abdomen acquired. COMPARISON: [facility], CT, CT ABDOMEN PELVIS W CON, 10/05/2019, 23:55. [facility], CT, L-SPINE WITHOUT CONTRAST, 12/08/2016, 10:47. FINDINGS: Surgical changes and devices: Thoracolumbar spine fixation hardware is stable. NG tube projects past the GE junction. Cardiac pacer lead noted. Bowel: Mildly distended loops of small bowel noted compatible with reported small bowel obstruction. Soft tissues: No suspicious abdominal calcifications. Visualized solid organ contours appear normal in size. Contrast material noted in the urinary bladder compatible with recent administration of intravenous contrast for CT scan of the abdomen/pelvis. Bones: No suspicious bony lesions. IMPRESSION: Mildly distended loops of small bowel compatible with early or partial small bowel obstruction. Dictated by: Charleen Cobos MD, PhD on 10/06/2019 at 8:36 Approved by: Charleen Cobos MD, PhD on 10/06/2019 at 8:39
[2019-10-06] MEDS: SODIUM CHLORIDE 0.9% 1,000 ML 150 ML IV ×4 (02:37→21:34)
[2019-10-06] MEDS: MORPHINE 2 MG/ML INJ 4 MG IV ×2 (02:46→06:28)
--- NOTE | 2019-10-06 03:31 | PC.ADMIT ---
[address] [facility] Admission Note: The patient,Denys Myers,84 y/o, was given written information regarding hospital policies, unit procedures and contact persons. Patient's smoking status: Former smoker. Vital Signs - 8 hr 10/05/19 22:41 10/06/19 00:28 10/06/19 00:45 Temperature 98.6 F Pulse Rate 77 70 85 Respiratory Rate 18 18 18 Blood Pressure 166/126 H Blood Pressure [Left Arm] 161/81 H 197/75 H Pulse Oximetry 96 98 98 10/06/19 01:04 10/06/19 01:33 10/06/19 02:40 Temperature 98.1 F Pulse Rate 86 87 84 Respiratory Rate 12 94 H 16 Blood Pressure 169/89 H Blood Pressure [Left Arm] 189/81 H 159/73 H Pulse Oximetry 98 94 95 Pt arrived via stretcher accompanied by ED FILE CLERK DATA ENTRY, ambulated self to hospital bed, is steady on his feet but does state he has weakness in his lower legs and uses a walker when walking long distances. VSS notable for hypertension, pt c/o abdominal pain 2/10 numerically, skin is notable for extensive plaque-like rash to back but is otherwise intact, lung sounds clear to auscultation, bowel tones are hyperactive in all 4 quadrants (LIS off during auscultation), NG in right nare patent and draining to LIS. Pt is a moderate fall risk d/t weakness in lower extremities, bed alarm on and functioning, call light in reach with education given on purpose and use to which patient acknowledges. Pt is NPO, given mouth swabs.
--- NOTE | 2019-10-06 07:58 | DI.RAD.S_ITS ---
PROCEDURE: FL SMALL BOWEL FOLLOW THROUGH INDICATIONS: small bowel obstruction. COMPARISON: [facility], CR, XR KUB, 10/06/2019, 6:20. [facility], CT, CT ABDOMEN PELVIS W CON, 10/05/2019, 23:55. FINDINGS: KUB: Preprocedural package collector film demonstrates multiple distended small bowel loops measuring up to approximately 3.3 cm in diameter. There is a paucity of gas in the colon. No suspicious abdominal calcifications. A nasogastric tube is demonstrated in the stomach. Postsurgical changes are redemonstrated within the thoracolumbar spine. There is contrast within the patient's bladder from recent CT study. Small bowel: There is opacification of multiple distended small bowel loops extending into the right lower quadrant. Persistent opacification of the small bowel is demonstrated at 7 hours following initiation of contrast without significant passage of contrast demonstrated in the colon. The findings are consistent with a high-grade small bowel obstruction with a transition point in the right lower quadrant. IMPRESSION: 1. Findings consistent with a high-grade small bowel obstruction with a transition point in the right lower quadrant. Findings are concordant with recent CT. Dictated by: Yassine Byrd M.D. on 10/06/2019 at 18:35 Approved by: Yassine Byrd M.D. on 10/06/2019 at 18:39
[2019-10-06] MEDS: MORPHINE 2 MG/ML INJ IV ×4 (08:33→14:16)
--- NOTE | 2019-10-06 08:47 | PM.HP.1 ---
History of Present Illness History of Present Illness Date Patient Seen: 10/06/19 Time Patient Seen: 08:59 Chief complaint: Abdominal pain Narrative: This is an 84-year-old male with a history of abdominal surgery who presents with small-bowel obstruction. Yesterday afternoon he developed abdominal pain and progressive abdominal distention associated with nausea and emesis. He has had no flatus since yesterday. He presented to the emergency room were a nasogastric [address] abdomen pelvis demonstrates a small-bowel obstruction no official read pending at this time but perhaps a transition point in the pelvis on my read. White blood cell count 10, hct 43, Cr 1.4, afebrile hemodynamically stable. He has had 1 prior episode of small-bowel obstruction 1 year ago which failed to resolve with conservative management and he required a laparotomy and lysis of adhesion, and was related to his history of prior open appendectomy. He has had no other abdominal surgeries. 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) SBO (small bowel obstruction) (Acute) Surgical History H/O exploratory laparotomy (Acute) Status post appendectomy (Resolved) Status post cervical spinal fusion (Resolved) Status post lumbar spine operation (Chronic) Family & Social History Family History Other Adopted Social History: household members spouse Prior Living Arrangements Mobile home Safety & Behavioral: Feels Safe in Current Yes Environment Been Physically Hurt or No Threatened By a Person Suicidal Ideation Description None Suicide Plan Description No Plan Tobacco & Substance use: Smoking Status Former smoker alcohol intake never alcohol intake frequency 0-2 drinks per day Substance Use Type does not use Meds Home Medications and Allergies Home Medications Medication Instructions Recorded Confirmed Type doxazosin 8 mg PO BEDTIME #0 11/03/11 10/06/19 History finasteride 5 mg PO QDAY #0 11/03/11 10/06/19 History simvastatin 20 mg PO BEDTIME #0 11/03/11 10/06/19 History C,E,zinc,copper 54-[id number] 1 cap PO BEDTIME 10/06/19 10/06/19 History [Ocuvite Adult 50 Plus] acetaminophen 650 mg PO BEDTIME 10/06/19 10/06/19 History acetaminophen 650 mg PO QAM 10/06/19 10/06/19 History aspirin 81 mg PO DAILY 10/06/19 10/06/19 History docusate sodium [Colace] 100 mg PO BID 10/06/19 10/06/19 History loratadine 10 mg PO DAILY 10/06/19 10/06/19 History nhuxwmbw-tgx-YS-lycopen-lutein 1 tab PO DAILY 10/06/19 10/06/19 History [Men 50 Plus Multivitamin] rivaroxaban [Xarelto] 20 mg PO BEDTIME 10/06/19 10/06/19 History Allergies Allergy/AdvReac Type Severity Reaction Status Date / Time No Known Allergies AdvReac Verified 10/05/19 22:56 Review of Systems Review of Systems ROS Unobtainable: All systems reviewed & are unremarkable except as noted in HPI and below Exam Vital Signs (past 8 hours): - 10/06/19 01:04 10/06/19 01:33 10/06/19 02:40 Temperature 98.1 F Pulse Rate 86 87 84 Respiratory Rate 12 94 H 16 Blood Pressure 169/89 H Blood Pressure [Left Arm] 189/81 H 159/73 H Pulse Oximetry 98 94 95 10/06/19 05:45 Temperature 98.5 F Pulse Rate 74 Respiratory Rate 16 Blood Pressure 175/84 H Blood Pressure [Left Arm] Pulse Oximetry 94 Oxygen Delivery Method Room Air Oxygen Flow Rate 0 Narrative Exam Narrative: General-no acute distress, well nourished HEENT-dry mucous membranes, no scleral icterus NGT with gastric output. Neck-supple, no lymphadenopathy Chest- non labored respirations, clear to auscultation bilaterally Cardiac-regular rate no peripheral edema Abdomen-distended tympanic. mildly tender in band across mid abdomen no peritonitis. Extremities-warm, well perfused Neurological-alert and oriented, no focal deficits Objective Labs Result Diagrams: 10/05/19 22:50 10/05/19 22:50 Labs: Laboratory Results - last 24 hr 10/05/19 10/05/19 10/05/19 22:50 22:50 22:50 WBC 9.6 RBC 4.89 Hgb 14.2 Hct 42.7 MCV 87.3 MCH 29.0 MCHC 33.2 RDW 14.9 H Plt Count 198 Neut % (Auto) 70.6 Lymph % (Auto) 19.2 L Licking % (Auto) 7.8 Eos % (Auto) 2.0 Baso % (Auto) 0.4 Neut # (Auto) 6800 Lymph # (Auto) 1900 Licking # (Auto) 800 Eos # (Auto) 200 Baso # (Auto) 0 PT 13.9 H INR 1.2 APTT 43 H Sodium 139 Potassium 4.1 Chloride 101 Carbon Dioxide 28 BUN 28 H Creatinine 1.40 H Estimated GFR 48.5 L BUN/Creatinine Ratio 20.0 Glucose 137 H Calcium 9.9 Total Bilirubin 0.4 AST 31 ALT 18 Alkaline Phosphatase 72 Total Protein 8.0 Albumin 4.8 Globulin 3.2 Albumin/Globulin Ratio 1.5 Lipase 149 Assessment & Plan Assessment and plan (1) SBO (small bowel obstruction): Current visit: Yes Status: Acute Assessment & Plan narrative: This is an 84-year-old male admitted with a small-bowel obstruction. He has had 1 prior episode of small-bowel obstruction 1 year ago that required lysis of adhesions and was related to his prior open appendectomy. He has been symptomatic for approximately 12 hours with progressive abdominal distention and nausea. He is hemodynamically stable no peritonitis and CT shows dilated loops of small bowel may be a transition point in the pelvis and no leukocytosis or fever. -NPO/NGT/IVF -Small bowel follow through with gastrografin today -If clinically deteriorates or no transit of contrast into colon after 8 hrs will need exploratory laparotomy. -Hold Xarelto -Grajeda catheter for monitoring of urine output in setting of a KI in small-bowel obstruction Quality VTE Deep Vein Thrombosis/Pulmonary Embolism Present on Admission: No
[2019-10-06 09:11] LABS: Add Manual Diff / Slide Review NO; Basophils Absolute Auto 0 /uL (0-100); Basophils Percent Auto 0.2 % (0-2); Eosinophils Absolute Auto 100 /uL (0-450); Eosinophils Percent Auto 0.7 % (2-4); Hematocrit 40.1 % (41-53); Hemoglobin 13.2 g/dL (13.5-17.5); Lymphocytes Absolute Auto 1100 /uL (1100-4500); Lymphocytes Percent Auto 7.5 % (25-40); Mean Corpuscular Hemoglobin 28.6 PG (26-34); Mean Corpuscular Volume 86.6 fL (80-100); Monocytes Absolute Auto 1000 /uL (0-900); Monocytes Percent Auto 7.2 % (3-14); Neutrophils Absolute Auto 12100 /uL (1500-7000); Neutrophils Percent Auto 84.4 % (50-75); Platelet Count 175 X10^3/uL (150-400); Red Blood Cell Count 4.63 X10^6/uL (4.5-5.9); White Blood Cell Count 14.3 X10^3/uL (4.5-11.0)
[2019-10-06 09:23] LABS: BUN Creatinine Ratio 18.5 (6-22); Blood Urea Nitrogen 24 mg/dL (9-20); Carbon Dioxide 29 mmol/L (22-32); Chloride 103 mmol/L (98-107); Estimated Glomerular Filt Rate 52.9 mL/min (>60); Glucose 137 mg/dL (80-110); HEMOLYSIS < 15 (0-50); Phosphorous 3.5 mg/dL (2.3-3.7); Potassium 4.3 mmol/L (3.4-5.1); Sodium 139 mmol/L (137-145)
[2019-10-06] MEDS: ENOXAPARIN 40 MG/0.4 ML SYRINGE SUBCUT (10:46)
--- NOTE | 2019-10-06 11:21 | PC.NURSE ---
Addendum entered by Lindsey Valencia R.N. 10/06/19 14:57: GI - pt returned from radiology w/o the 1420 study completed, and per radiologist, ok reconnect pt to suction as he is too uncomfortable and distended for study to be completed, reconnected and immediately emptied initially 550 and then an addl 800 ml. Addendum entered by Lindsey Valencia R.N. 10/06/19 14:14: GI/PAIN - pt is moaning w/abd discomfort, abd continues firm and distended, pain 10/10, faxed info to surgery, as next xr scheduled at 1420, given 2mg iv morphine now. Addendum entered by Lindsey Valencia R.N. 10/06/19 13:04: GI/PAIN - pt returned from xray, no nausea at this time, ng tube to remain clamped and next xray will be done at 1420, states abd pain 5 on scale 0/10, no restlessness at this time, given 2mg iv morphine. Addendum entered by Lindsey Valencia R.N. 10/06/19 11:30: GI/PAIN - pt did not have a bm, ret to bed and stated the morphine did help lessen discomfort from 10 its not an 8. Original Note: AM NOTE - pt asleep, when awakened for vitals, states his pain 10/10 abd is firm, distended, ng is at LIS w/dark brown fluid in tubing and cannister, ra 93%, hr 82, Dr. Monreal in and a SB followthrough ordered for this am, ng clamped and taken via wc at 0900 and ret at 1100, pt is moaning from discomfort and did have approx 60ml emesis in xr and 200 on arrival, per XR, NG is not to be reconnected to suction, remain clamped for the 2nd study at 1220pm, oral care provided, given 2mg iv morphine and reconnect to ivf, gasca cath inserted w/immed return of straw urine, pt felt uncomfortable and student nurse did assist to bsc I feel like I need bowel movement, ra 93-95%.
--- NOTE | 2019-10-06 12:50 | CM.DANOTE ---
DCP: Case received, EMR reviewed and met with patient. Introduced self and role. Was able to meet with patient to obtain baseline health and history information. DCP assessment/template completed with information currently available. Patient is an 84 year old male who admitted early this morning to the care of the hospitalist team. PCP: [facility]. Payer: Medicare/[employer]. Patient came to the hospital secondary to abdominal pain. Patient holds diagnosis of small bowel obstruction. Met with patient in his room. Alert and oriented, he has an NG tube. Patient stated, he had this same problem last year. Patient is alert and oriented, was laying in bed when this protective services case worker introduced self. Patient resides in [place] with his spouse, Lanette. He is independent, drives. He does have a front wheel walker that he stated he uses if he is walking long distances. He clarified that he has a provider at [facility], but did not name a specific provider. P: DCP to continue to follow closely. Patient should be able to go home when he is medically stable, when bowel function returns. Kyra Almanza RN/Individual Pension Adviser
--- NOTE | 2019-10-06 16:53 | PC.NURSE ---
NG CLAMPED PER XRAY, NEXT XRAY WILL BE 2100 TONIGHT AND 0900 IN AM
[2019-10-06] MEDS: PIPERACILLIN-TAZO 3.375 GM/50 ML FROZ.PIGGY IV ×2 (18:10→22:35)
--- NOTE | 2019-10-06 18:46 | SUR.OPER ---
Supine on padded OR bed, head on pillow, arms secured on padded arm boards at <90 degrees abduction, legs uncrossed, safety belt at thigh, tape over blanket over lower legs.
--- NOTE | 2019-10-06 20:59 | P.OP_ITS ---
Operative Date/Time/Diagnoses Date of procedure: 10/06/19 Time of procedure: 20:59 Pre-op diagnosis: small bowel obstruction Post-op diagnosis: same Procedure & Clinicians Procedure: Exploratory laparotomy Extensive lysis of adhesions Small-bowel resection Same procedure as scheduled: Yes Indications: This is an 84-year- man with prior abdominal surgery who presented with a small-bowel obstruction. He admission he was distended and dehydrated but without leukocytosis or fever. Within 24 hours of his admission his mid abdominal pain was failing to improve and he developed a leukocytosis. A small- bowel follow-through demonstrated no transit of contrast into the colon and very little small-bowel progress at 6-1/2 hours. Given the constellation of these findings I was concerned for small bowel compromise and when I explained this to the patient he agreed to to proceed with an exploratory laparotomy. History is notable for a remote open appendectomy and 1 year ago he had a small-bowel obstruction that required an exploratory laparotomy to resolve secondary to adhesions in the right lower quadrant. Surgeon: Jaylen Monreal Residential Sales Executive: Shi Carmona Click Yes if Unassisted: No Anesthesia Type: General Operative Notes Findings: 1. Numerous intra-abdominal adhesions causing the small bowel obstruction. 2. 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 Viable small bowel Specimen(s): other (Small-bowel resection) Estimated Blood Loss (mL): 100 Procedure in detail: Patient was brought to the operating room and placed supine on the table. Bilateral lower extremity compression devices were applied. General anesthesia was induced and he was intubated with a endotracheal tube. He was then prepped and draped in sterile fashion. Time-out was performed ensure the correct patient procedure necessary equipment within the operating room. We began with a midline incision through the previous midline scar. The subcutaneous tissues were divided with electrocautery. The fascia was grasped and elevated and carefully incised with a scalpel to enter the abdomen atraumatically. Next a lysis of adhesions was performed meticulously using sharp dissection with Metzenbaum. Ultimately the small bowel was delivered through the incision. The majority of the adhesive disease was in the right lower quadrant and there was a clear transition point between dilated bowel proximal and decompressed bowel distally. The small bowel was then run in its entirety from terminal ileum to the ligament of Treitz. Along the proximal ileum there was a stricture of the small bowel that was discrete from the transition point. Careful inspection of the bowel demonstrated a very small lumen and proximal to this point there was a a large volume of firm succus material that did not pass easily across the stricture. This was consistent with the patient's description of a chronic partial small bowel obstruction and then subsequently an acute small-bowel obstruction. The small bowel stricture was resected. A window in the mesentery was made and the bowel was divided using the Endo-DAVID stapler with with the blue load both proximal and distal, and the mesentery to the specimen was divided with Thunderbeat device. As the bowel was significantly dilated I decompressed it by carefully making an enterotomy adjacent to the small bowel planned for resection. The small bowel content was carefully evacuated from the intestine. The site of enterotomy was then resected by dividing the bowel with another fire of the Endo-DAVID stapler. A side to side small bowel anastamosis was fashioned by making an enterotomy on the anti mesenteric surface of both ends of small bowel and a common channel was created with 3rd fire of the Endo-DAVID stapler. The the common channel was inspected and was widely patent and hemostatic. The common enterotomy was then closed in a running fashion using 4 0 PDS suture. The suture line was then Lemberted using silk suture. Vicryl stitch was placed at the crotch of the anastomosis. The window of the small bowel anastomosis was then closed to prevent hernia defect using a running Vicryl suture. We then changed our gloves. The small bowel was then returned to the abdomen and lay in its natural position . Inspection of the stomach demonstrated no masses and the nasogastric tube in good position. The abdomen was then copiously lavaged with 4 L of water. Hemostasis was obtained. The abdomen was then closed by reapproximating the midline fascia using a #1 Maxon. The subcutaneous tissue was then reapproximated using Vicryl suture and the skin closed with jose. Patient tolerated the procedure well he was extubated and transferred to the postoperative care unit in stable condition. Complications: none
--- NOTE | 2019-10-06 21:29 | SUR.PHASEI ---
Pt arrrived to PACU w\o orders for pain control. Unable to use the orders set for acute care. VICKIE Arnold in charge was notified and I asked for transport to pts room for access to pain control. Pt was in stable condition, but needed pain management. Prior to transferring I reinforced pts abd dressing as some sang drainage was noted. Linens changed and transfer was made to room 226. I had VICKIE Wood verify that I truly did not have any orders. Transfer orders were inplace but no pacu orders could be seen. [place] immediately provided the pt with pain relief. Pt remained stable inspite of being in pain.
[2019-10-06] MEDS: HYDROMORPHONE 0.5 MG INJ IV (21:33)
[2019-10-06 22:11] LABS: Add Manual Diff / Slide Review NO; Basophils Absolute Auto 0 /uL (0-100); Basophils Percent Auto 0.2 % (0-2); Eosinophils Absolute Auto 0 /uL (0-450); Eosinophils Percent Auto 0.1 % (2-4); Hematocrit 41.3 % (41-53); Hemoglobin 13.7 g/dL (13.5-17.5); Lymphocytes Absolute Auto 600 /uL (1100-4500); Lymphocytes Percent Auto 6.7 % (25-40); Mean Corpuscular HGB Conc 33.3 % (30-36); Mean Corpuscular Hemoglobin 28.9 PG (26-34); Mean Corpuscular Volume 86.9 fL (80-100); Monocytes Absolute Auto 500 /uL (0-900); Monocytes Percent Auto 5.2 % (3-14); Neutrophils Absolute Auto 8000 /uL (1500-7000); Neutrophils Percent Auto 87.8 % (50-75); Platelet Count 176 X10^3/uL (150-400); Red Blood Cell Count 4.75 X10^6/uL (4.5-5.9); Red Cell Distribution Width 15.4 % (11.6-14.8); White Blood Cell Count 9.1 X10^3/uL (4.5-11.0)
[2019-10-06 22:21] LABS: Blood Urea Nitrogen 27 mg/dL (9-20); Calcium 8.6 mg/dL (8.4-10.2); Carbon Dioxide 27 mmol/L (22-32); Chloride 102 mmol/L (98-107); Estimated Glomerular Filt Rate 44.8 mL/min (>60); Glucose 184 mg/dL (80-110); HEMOLYSIS < 15 (0-50); Magnesium 1.8 mg/dL (1.6-2.3); Potassium 4.2 mmol/L (3.4-5.1); Sodium 141 mmol/L (137-145)
[2019-10-07] VITALS (15 sets, daily range): BP systolic 144–168; BP diastolic 65–87; PULSE 54–100; RESP 14–18; TEMP 36.9–37.7; O2SAT 89–97
[2019-10-07] MEDS: HYDROMORPHONE 0.5 MG INJ IV ×6 (00:22→18:56)
[2019-10-07] MEDS: SODIUM CHLORIDE 0.9% 1,000 ML 150 ML IV ×3 (02:09→18:43)
[2019-10-07] MEDS: PIPERACILLIN-TAZO 3.375 GM/50 ML FROZ.PIGGY IV (04:39)
[2019-10-07 05:13] LABS: Add Manual Diff / Slide Review NO; Basophils Absolute Auto 0 /uL (0-100); Basophils Percent Auto 0.2 % (0-2); Eosinophils Absolute Auto 0 /uL (0-450); Hematocrit 38.8 % (41-53); Hemoglobin 12.9 g/dL (13.5-17.5); Lymphocytes Absolute Auto 700 /uL (1100-4500); Lymphocytes Percent Auto 6.4 % (25-40); Mean Corpuscular HGB Conc 33.4 % (30-36); Monocytes Absolute Auto 1000 /uL (0-900); Monocytes Percent Auto 9.5 % (3-14); Neutrophils Absolute Auto 8700 /uL (1500-7000); Neutrophils Percent Auto 83.9 % (50-75); Platelet Count 169 X10^3/uL (150-400); Red Blood Cell Count 4.46 X10^6/uL (4.5-5.9); White Blood Cell Count 10.4 X10^3/uL (4.5-11.0)
[2019-10-07 05:26] LABS: BUN Creatinine Ratio 17.6 (6-22); Blood Urea Nitrogen 30 mg/dL (9-20); Calcium 8.2 mg/dL (8.4-10.2); Carbon Dioxide 26 mmol/L (22-32); Chloride 106 mmol/L (98-107); Estimated Glomerular Filt Rate 38.8 mL/min (>60); Glucose 195 mg/dL (80-110); HEMOLYSIS < 15 (0-50); Magnesium 1.7 mg/dL (1.6-2.3); Potassium 4.5 mmol/L (3.4-5.1); Sodium 143 mmol/L (137-145)
--- NOTE | 2019-10-07 06:38 | PC.NURSE ---
Pt POD 1 post ex lap with bowel resection and lysis of abd adhesions. Pt with significant report of pain 8-9/10 and objectively appeared to be in severe pain. Pt holding abdomen, wincing. Pain medication given per order q2hrs overnight, with good effect lasting about 2hrs. Pt NG patent, draining brown fluid into chamber. Pt ordered for q4hr I&O. Total out in 8hrs from NG 50cc, container marked and noted. Grajeda patent. Pt remains NPO, toothettes at bedside for oral care and comfort. Abd dressing intact, 3 ABDs saturated under coversites. Left lower border with est 3cc bloody drainage, reinforced with gauze. Abd round, tender (pt points to RUQ/LUQ). LUQ with tympanic bowel tones, otherwise absent bowel tones. IVF NS @150cc/hr.
--- NOTE | 2019-10-07 07:21 | P.PN_ITS ---
Subjective Subjective Date Patient Seen: 10/07/19 Time Patient Seen: 07:25 Interval history: Pt had ex lap and small bowel resection last evening for unrelenting SBO. Over night, he has been stable and pain is well controlled. He denies flatus, but hears rumbling in his stomach. Exam Vital Signs (past 8 hours): - 10/07/19 00:21 10/07/19 02:00 Temperature 98.7 F Pulse Rate 94 H 95 H Respiratory Rate 16 18 Blood Pressure 159/87 H 168/82 H Pulse Oximetry 95 96 Oxygen Delivery Method Nasal Cannula Oxygen Flow Rate 2 Narrative Exam Narrative: GENERAL: Alert, comfortable, talkative HENT: Normocephalic, atraumatic. Hearing intact. Dry oral mucosa; NGT securely in place and actively sumping EYES: Conjunctiva pink, sclera white, no periorbital swelling. CARDIOVASCULAR: Regular rate. No pedal edema. RESPIRATORY: No tachypnea, breathing comfortably on room air. GASTROINTESTINAL: Abdomen soft, appropriate TTP, dressings blood stained and were removed; incision c/d/i without active bleeding; skin cleaned with chlorprep and dressing replaced; abdomen moderately distended : gasca in place with clear yellow urine MUSCULOSKELETAL: Equal tone and mass bilaterally. SKIN: Warm, dry, soft, appropriate color for ethnicity. No other lesions, rashes, or wounds. NEURO: Alert and Oriented X 3. No gross sensory deficits, or cognitive issues. PSYCH: Appropriate affect and mood. Objective Labs Result Diagrams: 10/07/19 04:55 10/07/19 04:55 Labs: Laboratory Results - last 24 hr 10/06/19 10/06/19 10/06/19 09:03 09:03 17:38 WBC 14.3 H RBC 4.63 Hgb 13.2 L Hct 40.1 L MCV 86.6 MCH 28.6 MCHC 33.0 RDW 15.0 H Plt Count 175 Neut % (Auto) 84.4 H Lymph % (Auto) 7.5 L [place] % (Auto) 7.2 Eos % (Auto) 0.7 L Baso % (Auto) 0.2 Neut # (Auto) 51814 H Lymph # (Auto) 1100 [place] # (Auto) 1000 H Eos # (Auto) 100 Baso # (Auto) 0 Sodium 139 Potassium 4.3 Chloride 103 Carbon Dioxide 29 BUN 24 H Creatinine 1.30 H Estimated GFR 52.9 L BUN/Creatinine Ratio 18.5 Glucose 137 H Calcium 9.0 Phosphorus 3.5 Magnesium Blood Type A Positive Antibody Screen Negative Crossmatch See Detail 10/06/19 10/06/19 10/07/19 22:05 22:05 04:55 WBC 9.1 10.4 RBC 4.75 4.46 L Hgb 13.7 12.9 L Hct 41.3 38.8 L MCV 86.9 87.0 MCH 28.9 29.0 MCHC 33.3 33.4 RDW 15.4 H 15.0 H Plt Count 176 169 Neut % (Auto) 87.8 H 83.9 H Lymph % (Auto) 6.7 L 6.4 L [place] % (Auto) 5.2 9.5 Eos % (Auto) 0.1 L 0.0 L Baso % (Auto) 0.2 0.2 Neut # (Auto) 8000 H 8700 H Lymph # (Auto) 600 L 700 L [place] # (Auto) 500 1000 H Eos # (Auto) 0 0 Baso # (Auto) 0 0 Sodium 141 Potassium 4.2 Chloride 102 Carbon Dioxide 27 BUN 27 H Creatinine 1.50 H Estimated GFR 44.8 L BUN/Creatinine Ratio 18.0 Glucose 184 H Calcium 8.6 Phosphorus 4.0 H Magnesium 1.8 Blood Type Antibody Screen Crossmatch 10/07/19 04:55 WBC RBC Hgb Hct MCV MCH MCHC RDW Plt Count Neut % (Auto) Lymph % (Auto) [place] % (Auto) Eos % (Auto) Baso % (Auto) Neut # (Auto) Lymph # (Auto) [place] # (Auto) Eos # (Auto) Baso # (Auto) Sodium 143 Potassium 4.5 Chloride 106 Carbon Dioxide 26 BUN 30 H Creatinine 1.70 H Estimated GFR 38.8 L BUN/Creatinine Ratio 17.6 Glucose 195 H Calcium 8.2 L Phosphorus 4.0 H Magnesium 1.7 Blood Type Antibody Screen Crossmatch Assessment & Plan Assessment and plan (1) SBO (small bowel obstruction): Current visit: Yes Status: Acute (2) BPH (benign prostatic hyperplasia): Current visit: No Status: Chronic (3) TYRESE (acute kidney injury): Current visit: Yes Status: Acute (4) Hypomagnesemia: Current visit: Yes Status: Acute (5) Anticoagulated by anticoagulation treatment: Current visit: Yes Status: Acute (6) Presence of arterial stent: Problem details: Aorta and both thighs for atherosclerotic disease Current visit: No Status: Chronic (7) Pacemaker: Current visit: No Status: Chronic Assessment & Plan narrative: 84 yo man POD#1 s/p ex lap, SBR, and KALEN for SBO. Doing well. He c/o dry mouth and his UOP is a bit low. His pain is well controlled as long as he doesn't move. Labs look ok, but creatinine has bumped a bit, consistent with TYRESE likely secondary to his relative dehydration due to his SBO, and antibiotic requirement. Magnesium is low due to NPO status. Will keep NGT until passing flatus. Will keep abx for 24 hours post op due to risk of infection. Plan: Continue IV zosyn Replete Mag 2gm 1L fluid bolus Follow BMP daily keep NGT in for now on LIWS Ambulate as tolerated, 20 min TID if possible Keep gasca until tomorrow AM due to BPH and recent general anesthesia increasing risk of urine retention NPO except for meds Home meds IV famotidine IV zofran PRN IV dilaudid PRN PO tylenol DVT PPX hold Xarelto for now Quality VTE Deep Vein Thrombosis/Pulmonary Embolism Present on Admission: No
[2019-10-07] MEDS: SODIUM CHLORIDE 0.9% 1,000 ML 500 ML IV (08:35)
[2019-10-07] MEDS: HYDROMORPHONE 1 MG INJ IV ×3 (08:36→16:33)
[2019-10-07] MEDS: ENOXAPARIN 40 MG/0.4 ML SYRINGE SUBCUT (08:36)
[2019-10-07] MEDS: FAMOTIDINE 20 MG/50 ML PIGGYBACK 200 MG IV (08:37)
--- NOTE | 2019-10-07 12:40 | PT.IIE ---
Current Diagnoses Hypomagnesemia (10/06/19) Unspecified intestinal obstruction, unspecified as to partial versus complete obstruction (10/06/19) Acute kidney failure, unspecified (10/06/19) Benign prostatic hyperplasia without lower urinary tract symptoms (10/06/19) care home (current) use of anticoagulants (10/06/19) Presence of cardiac pacemaker (10/06/19) Presence of other vascular implants and grafts (10/06/19) Surgery Performed Operation Date: 10/06/19 17:10 Actual Procedures p Exploratory Laparotomy GEN; Small Bowel Resection; Lysis of adhesions - Jaylen Monreal MD Surgical History (Last Reviewed 10/06/19 @ 08:47 by Jaylen Monreal MD) H/O exploratory laparotomy (Acute) Status post appendectomy (Resolved) Status post cervical spinal fusion (Resolved) Status post lumbar spine operation (Chronic) Medical History (Last Reviewed 10/06/19 @ 08:47 by Jaylen Monreal MD) BPH (benign prostatic hyperplasia) (Chronic) Bradycardia (Chronic) 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) Hyperlipidemia (Chronic) 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) SBO (small bowel obstruction) (Acute) Physical Therapy Inpatient Evaluation/Re-Eval M1 PT/OT-IP Prior Functional Status Start: 10/07/19 17:43 Freq: NEEDED Status: Active Protocol: Document 10/07/19 12:40 AB (Rec: 10/07/19 17:59 AB [id number]) Medical Review Prior Functional Status Medical History Reviewed Yes Communication pt able to make needs known Mobility and Gait pt stated that he is independent with all mobilities and ambulation without AD but uses a 4WW for long distance ambulation Social History Household Members spouse Living Arrangements Mobile home Number of Floors (Floors) One Floor Number of Stairs To Enter/Railing? 3 steps L rail and L side bar Home Environment High Toilet,Walk in Shower Home Equipment Four Wheel Walker,Grab Bars Near Toilet M2 PT-IP Current Condition Start: 10/07/19 17:43 Freq: NEEDED Status: Active Protocol: Document 10/07/19 12:40 AB (Rec: 10/07/19 17:59 AB [id number]) Physical Therapy Current Condition Current Condition Evaluation Date 10/07/19 Treatment Diagnosis SBO s/p ex-lap; difficulty in walking Onset Date 10/06/19 Precautions Abdominal Surgery Precautions Log Roll,Lifting Restrictions, Gait Belt above Incisional Area M3 PT-IP Subjective Start: 10/07/19 17:43 Freq: NEEDED Status: Active Protocol: Document 10/07/19 12:40 AB (Rec: 10/07/19 17:59 AB [id number]) Subjective Physical Therapy Visit Type Type Initial Evaluation Visit Start Time 12:40 Visit Stop Time 13:07 Total Visit Minutes 27 Notes pt initially refused PT x 2 but agreed to get up after another dose of pain meds was given Number of EDUCATIONAL INTERPRETER Visits 0 Therapy Pain Assessment Pain When Pain Assessed During Mobility Pain Present Pain Present Pain Reported Location Abdomen Intensity 10 Scale Used Numeric (1 - 10) Description Tightness Pain Management Techniques Timing of Activity with Medications M4 PT-IP Mobility and Gait Start: 10/07/19 17:43 Freq: NEEDED Status: Active Protocol: Document 10/07/19 12:40 AB (Rec: 10/07/19 17:59 [id number]) PT-Bed Mobility Assessment Supine to Sit Supine to Sit Maximum Assistance,2 Person Assistance,Head of Bed Elevated,Bedrails PT-Transfer Assessment Sit to and From Stand Sit to and from Stand Minimal Assistance,Use of Upper Extremities Equipment Transfer Assistive Device Gait Belt,Front Wheeled Walker Orthotic/Prosthetic Devices or Brace: No Transfers Transfer Technique Stand Step Pivot Transfer Ability Level of Assist Minimal Assistance,1 Person Assistance,Use of Upper Extremities Comments Mobility Comments pt attempted log roll bed mobility but unable. pt also directs his own care and limiting factor is pain. stated that he cannot do log roll. positioned HOB higher up and pt requested for PT's hands to pull from and completed bed mobiltiy supine to sit max A x 2. pt does not want PT to assist him much and stated not to pull on him but ageed for PT to support and brace pt up for stability. pt was able to sit on EOB min A. attempted sit to stand from EOB on standard height but unable. elevated height of bed and pt completed sit to stand min A and cues and completed pivot transfer using FWW min A and cues. positioned pt on the chair. pt required increase time to complete tasks. informed nurse that pt's NG tube is draining fluid. NAC came in to checked and asked nurse. Nurse Vi came in and asked NAC to put the stopper on NG tube that was not attached. pt became really quieter during transfer and asked if he is ok and pt stated that he is fine. BP checked: 157/79 informed NAC regarding pt's level of assistance. left pt sitting on chair. call light and table placed within reach. Gait Assessment Comments Gait Comments unable at this time PT-Balance Assessment Sitting Balance and Reactions Static Sitting Balance Ability Fair Dynamic Sitting Balance Ability Fair Standing Balance and Reactions Static Standing Balance Ability Fair Dynamic Standing Balance Ability Poor Device Used FWW M5 PT-IP Objective Assessments Start: 10/07/19 17:43 Freq: NEEDED Status: Active Protocol: Document 10/07/19 12:40 AB (Rec: 10/07/19 17:59 AB [id number]) Orientation Orientation/Cognition Level of Alertness Confusional State Orientation Name,Situation Safety Awareness Decreased Safety Awareness Memory Description Short Term Impaired Gross Range of Motion Lower Extremity ROM Assessment Within Functional Limits Strength Lower Extremity Strength Hip 4-/5 Knee 4-/5 Muscle Tone Muscle Tone WNL Yes M6 PT-IP Treatment Start: 10/07/19 17:43 Freq: NEEDED Status: Active Protocol: Document 10/07/19 12:40 AB (Rec: 10/07/19 17:59 AB [id number]) Physical Therapy Treatment Education Education Provided Precautions,Safety M7 PT-IP Assessment and Plan Start: 10/07/19 17:43 Freq: NEEDED Status: Active Protocol: Document 10/07/19 12:40 AB (Rec: 10/07/19 17:59 AB [id number]) PT Summary Assessment and Plan Potential Rehabilitation Potential Good Status of Condition at Evaluation Evolving Summary Impairments Pain,ROM,Strength,Balance, Coordination,Cognition,Bed Mobility,Transfers,Gait, Activity Tolerance Assessment Summary pt requiring max A x 1-2 with mobility and unable to tolerate much activity. c/o increase pain affecting function. pt will require SNF rehab to improve strength and function. Goals Bed Mobility Goal Standby Assistance Transfer Goal Standby Assistance,Front Wheeled Walker Gait Goal Standby Assistance,Front Wheel Walker Gait Distance 150 Other Goals up/down 3 steps L rail ascending SBA Days to Meet Goals 10 Frequency of Treatment Frequency Of Treatment Once a Day Treatment Plan Physical Therapy Treatment Plan Bed Mobility Training,Transfer Training,Gait Training, Therapeutic Exercise,Balance Retraining,Post Op Education, Discharge Planning,Hot or Cold Pack,Neuromuscular Re-ed, Coordination Retraining,Manual Therapy Other Recommendations and Next Treatment ambulation Focus Recommendations To Nursing Amount of Assist Needed 2 Person Assist Discharge Recommendations PT Discharge Recommendations SNF Rehab Equipment Needed for Home Before FWW: if not safe with 4WW and Discharge if pt goes home
[2019-10-07] MEDS: MAGNESIUM SULFATE 2 GM/50 ML PIGGYBACK IV (13:13)
--- NOTE | 2019-10-07 13:36 | PC.NURSE ---
Post-op: Pt having issues with pain control this am, made aware and see new orders. Pt reports the increase in dilaudid has been helpful. It took several attempt to get pt oob. Finally he was able to get oob this afternoon. Can have an abd binder but so far he has refused it. Currently he is sitting up in a chair. changed dressing this am, does have a sm spot toward the distal side of dressing, otherwise it is c/d/i. Abd sl distened and is tender to any type of touch. NGT is functioning w/out problems, some leaking from the blue port and a plug was applied. Pt is reporting ngt is making throat sore and dry and he has been swabbing his mough. He hopes it can come out soon. Currently sitting in his chair.
[2019-10-07] MEDS: ONDANSETRON 4 MG/2 ML INJ IV (14:02)
[2019-10-07] MEDS: PIPERACILLIN-TAZO 2.25 GM/50 ML FROZ.PIGGY IV ×2 (14:44→21:04)
--- NOTE | 2019-10-07 16:20 | CM.DPC ---
DCP Continued: EMR Reviewed: patient is a 84 yr old male who was admitted to [facility] for small bowel obstruction with resection preformed by Dr. Monreal. PCP is at [facility] [email or web address]. Cm/RN met with patient and patients at the bedside and explained CM/RN role. Patient lives with his in a single level home in [facility]. CM/RN discussed possible SNF placement with patient and his . 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 CM/RN asked about HH as an option to have help while he recovers. Patient stated he didn't feel like he would need it. CM updated the white board with CM contact information incase they change their minds about wanting SNF or HH. Patient and stated understanding. CM department to Follow to help identify any D/C planning needs that may arise prior to D/C. Asia Ochoa RN.
[2019-10-07] MEDS: ACETAMINOPHEN 325 MG TABLET 650 MG PO ×2 (18:33→23:41)
[2019-10-08] VITALS (12 sets, daily range): BP systolic 152–186; BP diastolic 68–85; PULSE 77–86; RESP 16–18; TEMP 36.6–37.4; O2SAT 94–97
[2019-10-08] MEDS: HYDROMORPHONE 0.5 MG INJ IV ×5 (02:08→16:26)
[2019-10-08] MEDS: SODIUM CHLORIDE 0.9% 1,000 ML 150 ML IV ×4 (02:20→23:57)
[2019-10-08] MEDS: PIPERACILLIN-TAZO 2.25 GM/50 ML FROZ.PIGGY IV ×2 (03:01→09:40)
[2019-10-08 05:37] LABS: Add Manual Diff / Slide Review NO; Basophils Absolute Auto 0 /uL (0-100); Basophils Percent Auto 0.7 % (0-2); Eosinophils Absolute Auto 100 /uL (0-450); Eosinophils Percent Auto 2.3 % (2-4); Hematocrit 31.3 % (41-53); Hemoglobin 10.6 g/dL (13.5-17.5); Lymphocytes Absolute Auto 1000 /uL (1100-4500); Lymphocytes Percent Auto 17.6 % (25-40); Mean Corpuscular HGB Conc 33.8 % (30-36); Mean Corpuscular Hemoglobin 29.6 PG (26-34); Mean Corpuscular Volume 87.5 fL (80-100); Monocytes Absolute Auto 700 /uL (0-900); Monocytes Percent Auto 12.7 % (3-14); Neutrophils Absolute Auto 3700 /uL (1500-7000); Neutrophils Percent Auto 66.7 % (50-75); Platelet Count 137 X10^3/uL (150-400); Red Blood Cell Count 3.58 X10^6/uL (4.5-5.9); Red Cell Distribution Width 15.3 % (11.6-14.8); White Blood Cell Count 5.6 X10^3/uL (4.5-11.0)
[2019-10-08 05:45] LABS: Blood Urea Nitrogen 32 mg/dL (9-20); Calcium 7.6 mg/dL (8.4-10.2); Carbon Dioxide 27 mmol/L (22-32); Chloride 111 mmol/L (98-107); Estimated Glomerular Filt Rate 41.6 mL/min (>60); Glucose 146 mg/dL (80-110); HEMOLYSIS < 15 (0-50); Magnesium 2.7 mg/dL (1.6-2.3); Phosphorous 2.4 mg/dL (2.3-3.7); Potassium 4.2 mmol/L (3.4-5.1); Sodium 144 mmol/L (137-145)
[2019-10-08] MEDS: ACETAMINOPHEN 325 MG TABLET 650 MG PO (06:23)
--- NOTE | 2019-10-08 06:42 | PC.NURSE ---
Up and walked at bedside for 10-15min and sat on bsc, no flatus passed.
[2019-10-08] MEDS: ENOXAPARIN 40 MG/0.4 ML SYRINGE SUBCUT (08:43)
[2019-10-08] MEDS: FAMOTIDINE 20 MG/50 ML PIGGYBACK 200 MG IV (08:43)
[2019-10-08] MEDS: INSULIN ASPART 100 UNIT/ML INSULN PEN SUBCUT (08:50)
--- NOTE | 2019-10-08 09:55 | PM.PNPO.1 ---
Subjective Subjective Date Patient Seen: 10/08/19 Time Patient Seen: 09:55 Interval history: No acute overnight events. No flatus or bowel movement. IV pain medication adequate for pain control. Exam Vital Signs (past 8 hours): - 10/08/19 03:00 10/08/19 05:54 10/08/19 08:30 Temperature 99.2 F Pulse Rate 78 Respiratory Rate 16 Blood Pressure 152/85 H Pulse Oximetry 96 94 95 Oxygen Delivery Method Nasal Cannula Oxygen Flow Rate 2 Narrative Exam Narrative: Adult male alert oriented. Nonlabored respirations. Nasogastric tube with bilious content. Abdomen soft incision clean dry intact moderately distended. Objective Labs Result Diagrams: 10/08/19 05:12 10/08/19 05:12 Labs: Laboratory Results - last 24 hr 10/08/19 10/08/19 05:12 05:12 WBC 5.6 RBC 3.58 L Hgb 10.6 L Hct 31.3 L MCV 87.5 MCH 29.6 MCHC 33.8 RDW 15.3 H Plt Count 137 L Neut % (Auto) 66.7 Lymph % (Auto) 17.6 L [place] % (Auto) 12.7 Eos % (Auto) 2.3 Baso % (Auto) 0.7 Neut # (Auto) 3700 Lymph # (Auto) 1000 L [place] # (Auto) 700 Eos # (Auto) 100 Baso # (Auto) 0 Sodium 144 Potassium 4.2 Chloride 111 H Carbon Dioxide 27 BUN 32 H Creatinine 1.60 H Estimated GFR 41.6 L BUN/Creatinine Ratio 20.0 Glucose 146 H Calcium 7.6 L Phosphorus 2.4 D Magnesium 2.7 H Assessment & Plan Post-op Postoperative Procedures: Procedures Operation Date: 10/06/19 17:10 Actual Procedures Side Surgeon p Exploratory Laparotomy GEN; Small Bowel Resection; Lysis of adhesions Jaylen Monreal MD Postoperative day: 2 Postoperative status narrative: 84-year-old male postoperative day 2 status post ex lap lysis of adhesions and small-bowel resection for a small-bowel obstruction. He is doing well. He has not yet had return of bowel function and based on how dilated his small bowel was at the time of the operation not surprised by this. -Continue his nasogastric tube to suction okay for ice chips. -Await return of bowel function. -Pain is adequately controlled with current regimen no changes. -Continue Grajeda catheter for accurate measurement of urine output in setting of acute kidney injury and history of significant BPH unable to tolerate his home BPH medication at this time. -Continue ambulation with physical therapy. -IV fluids continue at 150 mL/hour. -Prophylactic Lovenox for VTE prophylaxis. -Discontinue Zosyn Time Spent With Patient Time with patient: 15-24 minutes Quality VTE Deep Vein Thrombosis/Pulmonary Embolism Present on Admission: No
--- NOTE | 2019-10-08 12:55 | PC.NURSE ---
Day shift: Medicated per JAN with 0.5 mg IV Dilaudid for pain 07/02. This helps for approx 3 hrs. Pt has c/o ABD pain that comes and goes. ABD is deistended and tender. Dr Monreal aware. Pt has been asking to get OOB and now he is OOB and working with PT/OT. Tolerating well.
--- NOTE | 2019-10-08 15:31 | PT.IPTN ---
Current Diagnoses Hypomagnesemia (10/06/19) Unspecified intestinal obstruction, unspecified as to partial versus complete obstruction (10/06/19) Acute kidney failure, unspecified (10/06/19) Benign prostatic hyperplasia without lower urinary tract symptoms (10/06/19) senior care (current) use of anticoagulants (10/06/19) Presence of cardiac pacemaker (10/06/19) Presence of other vascular implants and grafts (10/06/19) Surgery Performed Operation Date: 10/06/19 17:10 Actual Procedures p Exploratory Laparotomy GEN; Small Bowel Resection; Lysis of adhesions - Jaylen Monreal MD Physical Therapy Treatment Note M2 PT-IP Current Condition Start: 10/07/19 17:43 Freq: NEEDED Status: Active Protocol: Document 10/07/19 12:40 AB (Rec: 10/07/19 17:59 AB [id number]) Physical Therapy Current Condition Current Condition Evaluation Date 10/07/19 Treatment Diagnosis SBO s/p ex-lap; difficulty in walking Onset Date 10/06/19 Precautions Abdominal Surgery Precautions Log Roll,Lifting Restrictions, Gait Belt above Incisional Area M3 PT-IP Subjective Start: 10/07/19 17:43 Freq: NEEDED Status: Active Protocol: Document 10/08/19 13:35 LJ (Rec: 10/08/19 15:30 LJ [id number]) Subjective Physical Therapy Visit Type Type Treatment Note Visit Start Time 13:35 Visit Stop Time 13:58 Total Visit Minutes 23 Notes Several visitors in room. Pt wanting to get up and ambulate . Physical Therapy Visit Comments Patient Goals go home Therapy Pain Assessment Pain When Pain Assessed During Mobility Pain Present Pain Present Pain Reported M4 PT-IP Mobility and Gait Start: 10/07/19 17:43 Freq: NEEDED Status: Active Protocol: Document 10/08/19 13:35 LJ (Rec: 10/08/19 15:30 LJ [id number]) PT-Bed Mobility Assessment Supine to Sit Supine to Sit Moderate Assistance,1 Person Assistance,Head of Bed Elevated Sit to Supine Sit to Supine Minimal Assistance,1 Person Assistance,Head of Bed Elevated Scooting Scooting to Edge of Bed Standby Assistance Scooting Up and Down in Bed Standby Assistance PT-Transfer Assessment Sit to and From Stand Sit to and from Stand Standby Assistance,Use of Upper Extremities Equipment Transfer Assistive Device Gait Belt,Front Wheeled Walker Orthotic/Prosthetic Devices or Brace: No Transfers Transfer Destination Bed Transfer Technique Forward/Backward Scoot Transfer Ability Level of Assist Standby Assistance,Use of Upper Extremities Comments Mobility Comments Pt required ModA for bed mobility sitting up from slight recline in bed and [place] assist for getting LEs back into bed. Pt able to bridge with head of bed elevated to untangle his gown. Pt able to scoot himself up in bed with bridging. Gait Assessment Gait Gait Assistance Required: Contact Guard Assist,Minimum Assistance,2 Person Assist Distance (Feet) 30 Able to Maintain Weight Bearing Status Yes During Gait Assistive Devices Assistive Device Gait Belt,Front Wheeled Walker Orthotic/Prosthetic Devices or Brace: No Gait Deviations General Gait Pattern Decreased Stride Length, Decreased Feet Clearance Factors Limiting Gait Function Factors Limiting Gait Function Decreased Activity Tolerance, Decreased Strength,Pain,Poor Balance,Poor Safety Awareness Comments Gait Comments Pt ambulated in room with assist with IV and O2 hoses. Second person assisting with IV only. Pt was steady on his feet and had good balance. Did not go into sumner this time but did several circles in room as lines allowed. Pt wanted to ambulate into hallway but stated that his pain can shoot to a 10 all of the sudden and will put on his back. Pt also performed 5 sit>?stand to and from bed with light use of UEs. PT-Balance Assessment Sitting Balance and Reactions Static Sitting Balance Ability Fair Dynamic Sitting Balance Ability Fair Standing Balance and Reactions Static Standing Balance Ability Fair Dynamic Standing Balance Ability Poor Device Used FWW M5 PT-IP Objective Assessments Start: 10/07/19 17:43 Freq: NEEDED Status: Active Protocol: Document 10/07/19 12:40 AB (Rec: 10/07/19 17:59 AB [id number]) Orientation Orientation/Cognition Level of Alertness Confusional State Orientation Name,Situation Safety Awareness Decreased Safety Awareness Memory Description Short Term Impaired Gross Range of Motion Lower Extremity ROM Assessment Within Functional Limits Strength Lower Extremity Strength Hip 4-/5 Knee 4-/5 Muscle Tone Muscle Tone WNL Yes M6 PT-IP Treatment Start: 10/07/19 17:43 Freq: NEEDED Status: Active Protocol: Document 10/07/19 12:40 AB (Rec: 10/07/19 17:59 AB [id number]) Physical Therapy Treatment Education Education Provided Precautions,Safety M7 PT-IP Assessment and Plan Start: 10/07/19 17:43 Freq: NEEDED Status: Active Protocol: Document 10/08/19 13:35 JOANNE (Rec: 10/08/19 15:30 LJ [id number]) PT Summary Assessment and Plan Potential Rehabilitation Potential Good Status of Condition at Evaluation Evolving Summary Impairments Pain,ROM,Strength,Balance, Coordination,Cognition,Bed Mobility,Transfers,Gait, Activity Tolerance Assessment Summary Pt improved with bed mobility requiring SBA to [place] with LEs . Pt ambulating with steady gait and good balance CGA and assist with lines. Will be appropriate for ambulation in [facility]. Goals Bed Mobility Goal Standby Assistance Transfer Goal Standby Assistance,Front Wheeled Walker Gait Goal Standby Assistance,Front Wheel Walker Gait Distance 150 Other Goals up/down 3 steps L rail ascending SBA Days to Meet Goals 10 Frequency of Treatment Frequency Of Treatment Once a Day Treatment Plan Physical Therapy Treatment Plan Bed Mobility Training,Transfer Training,Gait Training, Therapeutic Exercise,Balance Retraining,Post Op Education, Discharge Planning,Hot or Cold Pack,Neuromuscular Re-ed, Coordination Retraining,Manual Therapy Other Recommendations and Next Treatment ambulation Focus Recommendations To Nursing Amount of Assist Needed 2 Person Assist Discharge Recommendations PT Discharge Recommendations SNF Rehab Equipment Needed for Home Before FWW: if not safe with 4WW and Discharge if pt goes home
[2019-10-08] MEDS: HYDROMORPHONE 1 MG INJ IV ×2 (18:33→22:35)
[2019-10-09] VITALS (13 sets, daily range): BP systolic 142–193; BP diastolic 77–86; PULSE 77–91; RESP 17–21; TEMP 36.8–37.1; O2SAT 88–95
--- NOTE | 2019-10-09 03:57 | PC.NURSE ---
Addendum entered by Roseann Asif R.N. 10/09/19 05:19: NG tube inserted at 0400 tube at 59cm, X-ray called for confirmation of placement. Original Note: Pt pulled NG tube out at 0350. Pt has been restless and confused this night. Dr. Monreal notified at 0355, Dr. Monreal gave a verbal order for new NG tube insertion and haldol 2mg Q6 IV push.
[2019-10-09] MEDS: HALOPERIDOL 5 MG/ML VIAL 2 MG IV (04:07)
--- NOTE | 2019-10-09 04:40 | DI.RAD.S_ITS ---
PROCEDURE: XR ABDOMEN 1V INDICATIONS: NG tube placement confirm TECHNIQUE: One view of the abdomen acquired. COMPARISON: [facility], [place], [place] SMALL BOWEL FOLLOW THROUGH, 10/06/2019, 9:04. [facility], CR, XR KUB, 10/06/2019, 6:20. [facility], CT, CT ABDOMEN PELVIS W CON, 10/05/2019, 23:55. FINDINGS: Surgical changes and devices: Since the postoperative changes of the spine are present. A nasogastric tube is seen with the tip overlying the expected location of the body of the stomach. Cardiac pacer wires appear to be present. Bowel: There continue to be mildly distended air-filled small bowel loops throughout the abdomen. The contrast material is now seen within the proximal colon. Soft tissues: No suspicious abdominal calcifications. Visualized solid organ contours appear normal in size. Bones: No suspicious bony lesions. IMPRESSION: 1. Nasogastric tube appears to be positioned with the tip overlying the body of the stomach. 2. Findings are suggestive of partial small bowel obstruction versus ileus. Dictated by: Obed Paula M.D. on 10/09/2019 at 7:44 Approved by: Obed Paula M.D. on 10/09/2019 at 7:46
[2019-10-09 05:21] LABS: Add Manual Diff / Slide Review NO; Basophils Absolute Auto 0 /uL (0-100); Basophils Percent Auto 0.3 % (0-2); Eosinophils Absolute Auto 300 /uL (0-450); Eosinophils Percent Auto 3.2 % (2-4); Hemoglobin 10.6 g/dL (13.5-17.5); Lymphocytes Absolute Auto 1000 /uL (1100-4500); Lymphocytes Percent Auto 12.1 % (25-40); Mean Corpuscular HGB Conc 33.2 % (30-36); Mean Corpuscular Hemoglobin 29.1 PG (26-34); Mean Corpuscular Volume 87.8 fL (80-100); Monocytes Absolute Auto 700 /uL (0-900); Neutrophils Absolute Auto 6200 /uL (1500-7000); Neutrophils Percent Auto 75.4 % (50-75); Platelet Count 158 X10^3/uL (150-400); Red Blood Cell Count 3.65 X10^6/uL (4.5-5.9); Red Cell Distribution Width 15.1 % (11.6-14.8); White Blood Cell Count 8.2 X10^3/uL (4.5-11.0)
[2019-10-09 05:27] LABS: BUN Creatinine Ratio 17.5 (6-22); Blood Urea Nitrogen 21 mg/dL (9-20); Calcium 8.1 mg/dL (8.4-10.2); Carbon Dioxide 24 mmol/L (22-32); Chloride 111 mmol/L (98-107); Glucose 116 mg/dL (80-110); HEMOLYSIS < 15 (0-50); Magnesium 2.5 mg/dL (1.6-2.3); Phosphorous 1.3 mg/dL (2.3-3.7); Sodium 143 mmol/L (137-145)
[2019-10-09] MEDS: SODIUM CHLORIDE 0.9% 1,000 ML 150 ML IV (06:45)
[2019-10-09] MEDS: HYDROMORPHONE 0.5 MG INJ IV ×2 (07:00→09:19)
[2019-10-09] MEDS: FAMOTIDINE 20 MG/50 ML PIGGYBACK 150 MG IV (08:30)
[2019-10-09] MEDS: ENOXAPARIN 40 MG/0.4 ML SYRINGE SUBCUT (08:30)
--- NOTE | 2019-10-09 10:48 | PC.NURSE ---
Day shift: Pt states It still hurrts and it's doesn't seem to be working. Denies passing any flatus. Grajeda output >50ml/hr. Denies any chest pain or nausea. NG tube patent with approx 200ml of green bile per shift. Pt's spouse at bedside for support. Pt has been repeating same questions such as Where is my urinal?. Pt has had Grajeda cath since surgery 3 days ago. Also asked about his and if she knew how to get here and if she was able to find him here. Pt's spouse was here most of the day yesterday. REGULO Bain placed SCD's on Pt and he is tolerating them. Call light in reach. Bed alarm is on. 1 on 1 with REGULO Bain on this shift.
[2019-10-09] MEDS: POTASSIUM PHOSPHATE 10 MMOL in SODIUM CHLORIDE 0.9% 1,000 ML 100 MMOL IV (11:12)
[2019-10-09] MEDS: DEXTROSE 5%-0.45NS W/KCL 20MEQ 1,000 ML 100 MEQ IV ×2 (12:05→21:32)
--- NOTE | 2019-10-09 12:16 | P.PN_ITS ---
Subjective Subjective Date Patient Seen: 10/09/19 Time Patient Seen: 12:16 Interval history: Patient delirious overnight, pulling IV lines and removed NG tube which was replaced. Received IV Haldol with good effect. Began ambulating yesterday within the room with help of physical therapy. No bowel movement or flatus Exam Vital Signs (past 8 hours): - 10/09/19 07:55 10/09/19 08:14 10/09/19 12:01 Temperature 98.7 F Pulse Rate 78 Respiratory Rate 18 Blood Pressure 177/77 H Pulse Oximetry 95 95 94 Oxygen Delivery Method Room Air Oxygen Flow Rate 2 Narrative Exam Narrative: Adult male alert oriented this morning in no acute distress. Respirations nonlabored. Abdomen protuberant moderately distended incision clean dry intact. Extremities warm well perfused Objective Labs Result Diagrams: 10/09/19 04:54 10/09/19 04:54 Labs: Laboratory Results - last 24 hr 10/09/19 10/09/19 04:54 04:54 WBC 8.2 RBC 3.65 L Hgb 10.6 L Hct 32.0 L MCV 87.8 MCH 29.1 MCHC 33.2 RDW 15.1 H Plt Count 158 Neut % (Auto) 75.4 H Lymph % (Auto) 12.1 L [place] % (Auto) 9.0 Eos % (Auto) 3.2 Baso % (Auto) 0.3 Neut # (Auto) 6200 Lymph # (Auto) 1000 L [place] # (Auto) 700 Eos # (Auto) 300 Baso # (Auto) 0 Sodium 143 Potassium 4.0 Chloride 111 H Carbon Dioxide 24 BUN 21 H Creatinine 1.20 Estimated GFR 58.0 L BUN/Creatinine Ratio 17.5 Glucose 116 H Calcium 8.1 L Phosphorus 1.3 L D Magnesium 2.5 H Assessment & Plan Post-op Postoperative Procedures: Procedures Operation Date: 10/06/19 17:10 Actual Procedures Side Surgeon p Exploratory Laparotomy GEN; Small Bowel Resection; Lysis of adhesions Jaylen Monreal MD Postoperative status narrative: This is an 84-year-old male postoperative day 3 status post ex lap lysis of adhesions and small-bowel resection for a small- bowel obstruction. Overall he is recovering from the operation as expected and awaiting return of bowel function. Delirium-no evidence of infection driving this likely secondary to prolonged hospitalization advanced age medication. Haldol as necessary for agitation. Increase wakefulness during day time and largely reserve sleeping for nighttime. Frequent reorientation. Postoperative ileus-continue nasogastric tube until return of bowel function. IVF changed to D5 1/2 with K decrease rate to 100 ml adequate urine output and resolved TYRESE. Frequent ambulation Urinary retention-continue Grajeda catheter until able the tolerate p.o. BPH medication VTE prophylaxis continue Lovenox Quality VTE Deep Vein Thrombosis/Pulmonary Embolism Present on Admission: No
--- NOTE | 2019-10-09 15:13 | PT.IPTN ---
Current Diagnoses Hypomagnesemia (10/06/19) Unspecified intestinal obstruction, unspecified as to partial versus complete obstruction (10/06/19) Acute kidney failure, unspecified (10/06/19) Benign prostatic hyperplasia without lower urinary tract symptoms (10/06/19) MCFP (current) use of anticoagulants (10/06/19) Presence of cardiac pacemaker (10/06/19) Presence of other vascular implants and grafts (10/06/19) Surgery Performed Operation Date: 10/06/19 17:10 Actual Procedures p Exploratory Laparotomy GEN; Small Bowel Resection; Lysis of adhesions - Jaylen Monreal MD Physical Therapy Treatment Note M2 PT-IP Current Condition Start: 10/07/19 17:43 Freq: NEEDED Status: Active Protocol: Document 10/07/19 12:40 AB (Rec: 10/07/19 17:59 AB [id number]) Physical Therapy Current Condition Current Condition Evaluation Date 10/07/19 Treatment Diagnosis SBO s/p ex-lap; difficulty in walking Onset Date 10/06/19 Precautions Abdominal Surgery Precautions Log Roll,Lifting Restrictions, Gait Belt above Incisional Area M3 PT-IP Subjective Start: 10/07/19 17:43 Freq: NEEDED Status: Active Protocol: Document 10/09/19 14:55 AW (Rec: 10/09/19 15:12 AW [id number]) Subjective Physical Therapy Visit Type Type Treatment Note Visit Start Time 14:28 Visit Stop Time 14:52 Total Visit Minutes 24 Number of NURSERY SCHOOL TEACHER Visits 0 Physical Therapy Visit Comments Patient Comments Pt has been requesting to walk the halls M4 PT-IP Mobility and Gait Start: 10/07/19 17:43 Freq: NEEDED Status: Active Protocol: Document 10/09/19 14:55 AW (Rec: 10/09/19 15:12 AW [id number]) PT-Bed Mobility Assessment Supine to Sit Supine to Sit Minimal Assistance,1 Person Assistance,Head of Bed Elevated,Bedrails Sit to Supine Sit to Supine Minimal Assistance,1 Person Assistance,Head of Bed Elevated Scooting Scooting to Edge of Bed Standby Assistance Scooting Up and Down in Bed Standby Assistance PT-Transfer Assessment Sit to and From Stand Sit to and from Stand Standby Assistance,Use of Upper Extremities Equipment Transfer Assistive Device Gait Belt,Front Wheeled Walker Orthotic/Prosthetic Devices or Brace: No Transfers Transfer Destination Bed Transfer Technique pt ambulated with FWW Transfer Ability Level of Assist Standby Assistance,Use of Upper Extremities Comments Mobility Comments Pt required min A for all bed mobility and mod verbal cues for log rolling. Verbal cues also required to slow down due to pt impulsivity. Gait Assessment Gait Gait Assistance Required: Contact Guard Assist,1 Person Assist Distance (Feet) 300 Able to Maintain Weight Bearing Status Yes During Gait Assistive Devices Assistive Device Gait Belt,Front Wheeled Walker Orthotic/Prosthetic Devices or Brace: No Gait Deviations General Gait Pattern Decreased Stride Length, Decreased Feet Clearance Factors Limiting Gait Function Factors Limiting Gait Function Decreased Activity Tolerance, Decreased Strength,Pain,Poor Balance,Poor Safety Awareness Comments Gait Comments RN disconnected pt from NG tube so that he could ambulate the halls. Pt ambulated 300 feet with FWW CGA. Assist required due to balance, poor safety awareness, and difficulty safely managing FWW . Pt required mod verbal cues to keep the walker closer, to slow down, and to keep his feet within the frame. SpO2 maintained 90-94% on room air during ambulation PT-Balance Assessment Sitting Balance and Reactions Static Sitting Balance Ability Fair Dynamic Sitting Balance Ability Fair Standing Balance and Reactions Static Standing Balance Ability Fair Dynamic Standing Balance Ability Poor Device Used FWW M5 PT-IP Objective Assessments Start: 10/07/19 17:43 Freq: NEEDED Status: Active Protocol: Document 10/07/19 12:40 AB (Rec: 10/07/19 17:59 AB [id number]) Orientation Orientation/Cognition Level of Alertness Confusional State Orientation Name,Situation Safety Awareness Decreased Safety Awareness Memory Description Short Term Impaired Gross Range of Motion Lower Extremity ROM Assessment Within Functional Limits Strength Lower Extremity Strength Hip 4-/5 Knee 4-/5 Muscle Tone Muscle Tone WNL Yes M6 PT-IP Treatment Start: 10/07/19 17:43 Freq: NEEDED Status: Active Protocol: Document 10/09/19 14:55 AW (Rec: 10/09/19 15:12 AW [id number]) Physical Therapy Treatment Education Education Provided Precautions,Safety M7 PT-IP Assessment and Plan Start: 10/07/19 17:43 Freq: NEEDED Status: Active Protocol: Document 10/09/19 14:55 AW (Rec: 10/09/19 15:12 AW [id number]) PT Summary Assessment and Plan Summary Impairments Pain,ROM,Strength,Balance, Coordination,Cognition,Bed Mobility,Transfers,Gait, Activity Tolerance Progress Towards Goals Progressing Toward Goals Assessment Summary Pt progressing with bed mobility, requiring decreased level of assist. He significantly progressed gait distance but with unsteadiness on his feet as evidenced by path deviations accompanying head turns, nods, and changes in velocity. Goals Bed Mobility Goal Standby Assistance Transfer Goal Standby Assistance,Front Wheeled Walker Gait Goal Standby Assistance,Front Wheel Walker Gait Distance 150 Other Goals up/down 3 steps L rail ascending SBA Days to Meet Goals 10 Frequency of Treatment Frequency Of Treatment Once a Day Treatment Plan Physical Therapy Treatment Plan Bed Mobility Training,Transfer Training,Gait Training, Therapeutic Exercise,Balance Retraining,Post Op Education, Discharge Planning,Hot or Cold Pack,Neuromuscular Re-ed, Coordination Retraining,Manual Therapy Recommendations To Nursing Amount of Assist Needed 1 Person Assist Discharge Recommendations PT Discharge Recommendations SNF Rehab Equipment Needed for Home Before FWW: if not safe with 4WW and Discharge if pt goes home
--- NOTE | 2019-10-09 17:34 | PC.NURSE ---
Addendum entered by Amparo Loera R.N. 10/09/19 22:09: 2210: Pt assisted to BSC w/o incidence. Med for discomfort at 2030 w/good relief. IVF continue as per orders, NG w/200cc out Grajeda cath patent 650cc clear urine Call light w/in reach, bed alarm on for pt safety. Continue w/plan of care. Original Note: 1500 - 2330 Shift Pt awake, watching TV. SpO2 95% RA IV LAC of D5 1/2NS w/KCL infusing @ 100cc/hr via pump w/o incidence. Dsg to abdomen, w/ shadow drainage on lower right section. NG intact/patent. Grajeda cath patent clear yellow urine. Ambulated to window and back w/2 assist. Tolerated well. Call light w/in reach, bed alarm on for pt safety.
[2019-10-09] MEDS: HYDROMORPHONE 1 MG INJ IV (20:23)
[2019-10-10] VITALS (12 sets, daily range): BP systolic 146–191; BP diastolic 71–98; PULSE 70–90; RESP 16–18; TEMP 36.2–37.4; O2SAT 93–99
[2019-10-10] MEDS: HYDROMORPHONE 1 MG INJ IV (00:08)
[2019-10-10] MEDS: HALOPERIDOL 5 MG/ML VIAL 2 MG IV (00:47)
--- NOTE | 2019-10-10 02:05 | PC.NURSE ---
Patient is restless and pulling at multiple lines ie. Grajeda catheter, IV line, Nasogastric tube and continuos pulse oximetry monitor. Gave 2mg Haldol for agitation/restlessness see MAR.
[2019-10-10] MEDS: DEXTROSE 5%-0.45NS W/KCL 20MEQ 1,000 ML 100 MEQ IV (06:46)
[2019-10-10 07:18] LABS: Blood Urea Nitrogen 18 mg/dL (9-20); Calcium 8.4 mg/dL (8.4-10.2); Carbon Dioxide 25 mmol/L (22-32); Chloride 107 mmol/L (98-107); Estimated Glomerular Filt Rate > 60.0 mL/min (>60); Glucose 158 mg/dL (80-110); HEMOLYSIS < 15 (0-50); Magnesium 2.3 mg/dL (1.6-2.3); Phosphorous 1.4 mg/dL (2.3-3.7); Potassium 3.7 mmol/L (3.4-5.1); Sodium 140 mmol/L (137-145)
[2019-10-10] MEDS: FUROSEMIDE 40 MG/4 ML VIAL IV (08:09)
[2019-10-10] MEDS: ENOXAPARIN 40 MG/0.4 ML SYRINGE SUBCUT (08:10)
[2019-10-10] MEDS: FAMOTIDINE 20 MG/50 ML PIGGYBACK 150 MG IV (08:12)
[2019-10-10] MEDS: FINASTERIDE 5 MG TABLET PO (08:18)
[2019-10-10] MEDS: POTASSIUM CHLORIDE 40 MEQ in SODIUM CHLORIDE 0.9% 500 ML 130 ML IV (09:16)
--- NOTE | 2019-10-10 10:56 | PM.PNPO.1 ---
Subjective Subjective Date Patient Seen: 10/10/19 Time Patient Seen: 10:56 Interval history: Continues to be mildly delirious but redirectable at night. +Flatus. Pain well controlled. Exam Vital Signs (past 8 hours): - 10/10/19 04:00 10/10/19 05:42 10/10/19 08:00 Temperature 98.2 F 97.6 F Pulse Rate 80 70 Respiratory Rate 16 16 Blood Pressure 146/98 H 179/93 H Pulse Oximetry 94 94 95 10/10/19 08:33 Temperature Pulse Rate Respiratory Rate Blood Pressure Pulse Oximetry 95 Oxygen Delivery Method Room Air Oxygen Flow Rate 0 Narrative Exam Narrative: General adult male alert oriented currently. Nasogastric tube with gastric content in container. Abdomen incision clean dry intact soft mildly distended less than yesterday. Extremities warm mild edema. Objective Labs Result Diagrams: 10/09/19 04:54 10/10/19 06:53 Labs: Laboratory Results - last 24 hr 10/06/19 10/10/19 17:38 06:53 Sodium 140 Potassium 3.7 Chloride 107 Carbon Dioxide 25 BUN 18 Creatinine 1.00 Estimated GFR > 60.0 BUN/Creatinine Ratio 18.0 Glucose 158 H Calcium 8.4 Phosphorus 1.4 L Magnesium 2.3 Crossmatch See Detail Assessment & Plan Post-op Postoperative Procedures: Procedures Operation Date: 10/06/19 17:10 Actual Procedures Side Surgeon p Exploratory Laparotomy GEN; Small Bowel Resection; Lysis of adhesions Jaylen Monreal MD Postoperative status narrative: This is an 84M postoperative day 4 status post ex lap lysis of adhesions small-bowel resection for a small-bowel obstruction. He is doing well and recovering appropriately from the operation. He has had return of bowel function. -DC NGT start clear liquid diet -Decrease IVF to 50 and DC if tolerating liquids -40 Lasix for diuresis -Resume home finasteride and doxazosin try to remove gasca tomorrow -pLovenox -Start oxycodone PRN -Scheduled Seroquel at bedtime -Continue PT Time Spent With Patient Time with patient: 15-24 minutes Quality VTE Deep Vein Thrombosis/Pulmonary Embolism Present on Admission: No
--- NOTE | 2019-10-10 11:48 | CM.DPC ---
DCP Cont: Met with patient and , Janelle. NG tube was discontinued, he is now on clear liquids. Patient was sitting up in bed, alert. Discussed potential home health, or any other resources with . 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 P: DCP to continue to follow closely. Patient is on clear liquids now, will see how he tolerates. Home is the plan, when medically stable. Kyra Almanza RN/Staff Home Therapy Rn
--- NOTE | 2019-10-10 12:04 | PT.IPTN ---
Current Diagnoses Hypomagnesemia (10/06/19) Unspecified intestinal obstruction, unspecified as to partial versus complete obstruction (10/06/19) Acute kidney failure, unspecified (10/06/19) Benign prostatic hyperplasia without lower urinary tract symptoms (10/06/19) long-term (current) use of anticoagulants (10/06/19) Presence of cardiac pacemaker (10/06/19) Presence of other vascular implants and grafts (10/06/19) Surgery Performed Operation Date: 10/06/19 17:10 Actual Procedures p Exploratory Laparotomy GEN; Small Bowel Resection; Lysis of adhesions - Jaylen Monreal MD Physical Therapy Treatment Note M2 PT-IP Current Condition Start: 10/07/19 17:43 Freq: NEEDED Status: Active Protocol: Document 10/07/19 12:40 AB (Rec: 10/07/19 17:59 AB [id number]) Physical Therapy Current Condition Current Condition Evaluation Date 10/07/19 Treatment Diagnosis SBO s/p ex-lap; difficulty in walking Onset Date 10/06/19 Precautions Abdominal Surgery Precautions Log Roll,Lifting Restrictions, Gait Belt above Incisional Area M3 PT-IP Subjective Start: 10/07/19 17:43 Freq: NEEDED Status: Active Protocol: Document 10/10/19 11:56 AW (Rec: 10/10/19 12:03 AW [id number]) Subjective Physical Therapy Visit Type Type Treatment Note Visit Start Time 11:41 Visit Stop Time 11:56 Total Visit Minutes 15 Number of BOAT RIDE OPERATOR Visits 0 Physical Therapy Visit Comments Patient Comments Pt has walked the [place] three times this morning. Therapy Pain Assessment Pain When Pain Assessed During Mobility Pain Present Pain Present Denied Pain M4 PT-IP Mobility and Gait Start: 10/07/19 17:43 Freq: NEEDED Status: Active Protocol: Document 10/10/19 11:56 AW (Rec: 10/10/19 12:03 AW [id number]) PT-Bed Mobility Assessment Rolling Type of Rolling Log Rolling Level of Assist Contact Guard Assistance Supine to Sit Supine to Sit Contact Guard Assistance,1 Person Assistance Sit to Supine Sit to Supine Minimal Assistance,1 Person Assistance Scooting Scooting to Edge of Bed Standby Assistance PT-Transfer Assessment Sit to and From Stand Sit to and from Stand Standby Assistance,Use of Upper Extremities Equipment Transfer Assistive Device Gait Belt,Front Wheeled Walker Orthotic/Prosthetic Devices or Brace: No Transfers Transfer Destination Bed,Chair Transfer Technique Stand Step Pivot Transfer Ability Level of Assist Standby Assistance,Use of Upper Extremities Comments Mobility Comments Pt required CGA and cues for supine to sit, min A x 1 and cues for sit to supine on first trial. All completed with log roll technique. Sit < > stand required only SBA with moderate cues for UE pushoff, sequencing, and hand placement. Pt then completed 5 Time Sit to Stand SBA with time of 15 seconds. Functional Assessments Functional Tests 5 Times Sit to Stand 15 seconds M5 PT-IP Objective Assessments Start: 10/07/19 17:43 Freq: NEEDED Status: Active Protocol: Document 10/07/19 12:40 AB (Rec: 10/07/19 17:59 AB [id number]) Orientation Orientation/Cognition Level of Alertness Confusional State Orientation Name,Situation Safety Awareness Decreased Safety Awareness Memory Description Short Term Impaired Gross Range of Motion Lower Extremity ROM Assessment Within Functional Limits Strength Lower Extremity Strength Hip 4-/5 Knee 4-/5 Muscle Tone Muscle Tone WNL Yes M6 PT-IP Treatment Start: 10/07/19 17:43 Freq: NEEDED Status: Active Protocol: Document 10/10/19 11:56 AW (Rec: 10/10/19 12:03 AW [id number]) Physical Therapy Treatment Education Education Provided Precautions,Safety M7 PT-IP Assessment and Plan Start: 10/07/19 17:43 Freq: NEEDED Status: Active Protocol: Document 10/10/19 11:56 AW (Rec: 10/10/19 12:03 AW [id number]) PT Summary Assessment and Plan Summary Impairments Pain,ROM,Strength,Balance, Coordination,Cognition,Bed Mobility,Transfers,Gait, Activity Tolerance Progress Towards Goals Progressing Toward Goals Assessment Summary Pt increased independence with bed mobility. Gait not assessed since he had just returned to chair from walking halls with nursing. 5 Time Sit to Stand time of 15 seconds indicates moderate risk of falls. Goals Bed Mobility Goal Standby Assistance Transfer Goal Standby Assistance,Front Wheeled Walker Gait Goal Standby Assistance,Front Wheel Walker Gait Distance 150 Other Goals up/down 3 steps L rail ascending SBA Days to Meet Goals 10 Frequency of Treatment Frequency Of Treatment Once a Day Treatment Plan Physical Therapy Treatment Plan Bed Mobility Training,Transfer Training,Gait Training, Therapeutic Exercise,Balance Retraining,Post Op Education, Discharge Planning,Hot or Cold Pack,Neuromuscular Re-ed, Coordination Retraining,Manual Therapy Other Recommendations and Next Treatment Assess gait, safety with FWW. Focus Trial stairs. Recommendations To Nursing Amount of Assist Needed 1 Person Assist Discharge Recommendations PT Discharge Recommendations Home with 24/7 Assist,Home Health,SNF Rehab Other Discharge Recommendations SNF Rehab vs home with 24/7 and HH. Will continue to assess. Equipment Needed for Home Before FWW: if not safe with 4WW and Discharge if pt goes home
--- NOTE | 2019-10-10 12:05 | PT.IPTN ---
Current Diagnoses Hypomagnesemia (10/06/19) Unspecified intestinal obstruction, unspecified as to partial versus complete obstruction (10/06/19) Acute kidney failure, unspecified (10/06/19) Benign prostatic hyperplasia without lower urinary tract symptoms (10/06/19) alf (current) use of anticoagulants (10/06/19) Presence of cardiac pacemaker (10/06/19) Presence of other vascular implants and grafts (10/06/19) Surgery Performed Operation Date: 10/06/19 17:10 Actual Procedures p Exploratory Laparotomy GEN; Small Bowel Resection; Lysis of adhesions - Jaylen Monreal MD Physical Therapy Treatment Note M2 PT-IP Current Condition Start: 10/07/19 17:43 Freq: NEEDED Status: Active Protocol: Document 10/07/19 12:40 AB (Rec: 10/07/19 17:59 AB [id number]) Physical Therapy Current Condition Current Condition Evaluation Date 10/07/19 Treatment Diagnosis SBO s/p ex-lap; difficulty in walking Onset Date 10/06/19 Precautions Abdominal Surgery Precautions Log Roll,Lifting Restrictions, Gait Belt above Incisional Area M3 PT-IP Subjective Start: 10/07/19 17:43 Freq: NEEDED Status: Active Protocol: Document 10/10/19 11:56 AW (Rec: 10/10/19 12:03 AW [id number]) Subjective Physical Therapy Visit Type Type Treatment Note Visit Start Time 11:41 Visit Stop Time 11:56 Total Visit Minutes 15 Number of NAPHTHALENE OPERATOR HELPER Visits 0 Physical Therapy Visit Comments Patient Comments Pt has walked the [place] three times this morning. Therapy Pain Assessment Pain When Pain Assessed During Mobility Pain Present Pain Present Denied Pain M4 PT-IP Mobility and Gait Start: 10/07/19 17:43 Freq: NEEDED Status: Active Protocol: Document 10/10/19 11:56 AW (Rec: 10/10/19 12:03 AW [id number]) PT-Bed Mobility Assessment Rolling Type of Rolling Log Rolling Level of Assist Contact Guard Assistance Supine to Sit Supine to Sit Contact Guard Assistance,1 Person Assistance Sit to Supine Sit to Supine Minimal Assistance,1 Person Assistance Scooting Scooting to Edge of Bed Standby Assistance PT-Transfer Assessment Sit to and From Stand Sit to and from Stand Standby Assistance,Use of Upper Extremities Equipment Transfer Assistive Device Gait Belt,Front Wheeled Walker Orthotic/Prosthetic Devices or Brace: No Transfers Transfer Destination Bed,Chair Transfer Technique Stand Step Pivot Transfer Ability Level of Assist Standby Assistance,Use of Upper Extremities Comments Mobility Comments Pt required CGA and cues for supine to sit, min A x 1 and cues for sit to supine on first trial. All completed with log roll technique. Sit < > stand required only SBA with moderate cues for UE pushoff, sequencing, and hand placement. Pt then completed 5 Time Sit to Stand SBA with time of 15 seconds. Functional Assessments Functional Tests 5 Times Sit to Stand 15 seconds M5 PT-IP Objective Assessments Start: 10/07/19 17:43 Freq: NEEDED Status: Active Protocol: Document 10/07/19 12:40 AB (Rec: 10/07/19 17:59 AB [id number]) Orientation Orientation/Cognition Level of Alertness Confusional State Orientation Name,Situation Safety Awareness Decreased Safety Awareness Memory Description Short Term Impaired Gross Range of Motion Lower Extremity ROM Assessment Within Functional Limits Strength Lower Extremity Strength Hip 4-/5 Knee 4-/5 Muscle Tone Muscle Tone WNL Yes M6 PT-IP Treatment Start: 10/07/19 17:43 Freq: NEEDED Status: Active Protocol: Document 10/10/19 11:56 AW (Rec: 10/10/19 12:03 AW [id number]) Physical Therapy Treatment Education Education Provided Precautions,Safety M7 PT-IP Assessment and Plan Start: 10/07/19 17:43 Freq: NEEDED Status: Active Protocol: Document 10/10/19 11:56 AW (Rec: 10/10/19 12:03 AW [id number]) PT Summary Assessment and Plan Summary Impairments Pain,ROM,Strength,Balance, Coordination,Cognition,Bed Mobility,Transfers,Gait, Activity Tolerance Progress Towards Goals Progressing Toward Goals Assessment Summary Pt increased independence with bed mobility. Gait not assessed since he had just returned to chair from walking halls with nursing. 5 Time Sit to Stand time of 15 seconds indicates moderate risk of falls. Goals Bed Mobility Goal Standby Assistance Transfer Goal Standby Assistance,Front Wheeled Walker Gait Goal Standby Assistance,Front Wheel Walker Gait Distance 150 Other Goals up/down 3 steps L rail ascending SBA Days to Meet Goals 10 Frequency of Treatment Frequency Of Treatment Once a Day Treatment Plan Physical Therapy Treatment Plan Bed Mobility Training,Transfer Training,Gait Training, Therapeutic Exercise,Balance Retraining,Post Op Education, Discharge Planning,Hot or Cold Pack,Neuromuscular Re-ed, Coordination Retraining,Manual Therapy Other Recommendations and Next Treatment Assess gait, safety with FWW. Focus Trial stairs. Recommendations To Nursing Amount of Assist Needed 1 Person Assist Discharge Recommendations PT Discharge Recommendations SNF Rehab Equipment Needed for Home Before FWW: if not safe with 4WW and Discharge if pt goes home
--- NOTE | 2019-10-10 12:07 | PT.IPTN ---
Current Diagnoses Hypomagnesemia (10/06/19) Unspecified intestinal obstruction, unspecified as to partial versus complete obstruction (10/06/19) Acute kidney failure, unspecified (10/06/19) Benign prostatic hyperplasia without lower urinary tract symptoms (10/06/19) prison (current) use of anticoagulants (10/06/19) Presence of cardiac pacemaker (10/06/19) Presence of other vascular implants and grafts (10/06/19) Surgery Performed Operation Date: 10/06/19 17:10 Actual Procedures p Exploratory Laparotomy GEN; Small Bowel Resection; Lysis of adhesions - Jaylen Monreal MD Physical Therapy Treatment Note M2 PT-IP Current Condition Start: 10/07/19 17:43 Freq: NEEDED Status: Active Protocol: Document 10/07/19 12:40 AB (Rec: 10/07/19 17:59 AB [id number]) Physical Therapy Current Condition Current Condition Evaluation Date 10/07/19 Treatment Diagnosis SBO s/p ex-lap; difficulty in walking Onset Date 10/06/19 Precautions Abdominal Surgery Precautions Log Roll,Lifting Restrictions, Gait Belt above Incisional Area M3 PT-IP Subjective Start: 10/07/19 17:43 Freq: NEEDED Status: Active Protocol: Document 10/10/19 11:56 AW (Rec: 10/10/19 12:03 AW [id number]) Subjective Physical Therapy Visit Type Type Treatment Note Visit Start Time 11:41 Visit Stop Time 11:56 Total Visit Minutes 15 Number of LITHOSTRIPPER Visits 0 Physical Therapy Visit Comments Patient Comments Pt has walked the [place] three times this morning. Therapy Pain Assessment Pain When Pain Assessed During Mobility Pain Present Pain Present Denied Pain M4 PT-IP Mobility and Gait Start: 10/07/19 17:43 Freq: NEEDED Status: Active Protocol: Document 10/10/19 11:56 AW (Rec: 10/10/19 12:03 AW [id number]) PT-Bed Mobility Assessment Rolling Type of Rolling Log Rolling Level of Assist Contact Guard Assistance Supine to Sit Supine to Sit Contact Guard Assistance,1 Person Assistance Sit to Supine Sit to Supine Minimal Assistance,1 Person Assistance Scooting Scooting to Edge of Bed Standby Assistance PT-Transfer Assessment Sit to and From Stand Sit to and from Stand Standby Assistance,Use of Upper Extremities Equipment Transfer Assistive Device Gait Belt,Front Wheeled Walker Orthotic/Prosthetic Devices or Brace: No Transfers Transfer Destination Bed,Chair Transfer Technique Stand Step Pivot Transfer Ability Level of Assist Standby Assistance,Use of Upper Extremities Comments Mobility Comments Pt required CGA and cues for supine to sit, min A x 1 and cues for sit to supine on first trial. All completed with log roll technique. Sit < > stand required only SBA with moderate cues for UE pushoff, sequencing, and hand placement. Pt then completed 5 Time Sit to Stand SBA with time of 15 seconds. Functional Assessments Functional Tests 5 Times Sit to Stand 15 seconds M5 PT-IP Objective Assessments Start: 10/07/19 17:43 Freq: NEEDED Status: Active Protocol: Document 10/07/19 12:40 AB (Rec: 10/07/19 17:59 AB [id number]) Orientation Orientation/Cognition Level of Alertness Confusional State Orientation Name,Situation Safety Awareness Decreased Safety Awareness Memory Description Short Term Impaired Gross Range of Motion Lower Extremity ROM Assessment Within Functional Limits Strength Lower Extremity Strength Hip 4-/5 Knee 4-/5 Muscle Tone Muscle Tone WNL Yes M6 PT-IP Treatment Start: 10/07/19 17:43 Freq: NEEDED Status: Active Protocol: Document 10/10/19 11:56 AW (Rec: 10/10/19 12:03 AW [id number]) Physical Therapy Treatment Education Education Provided Precautions,Safety M7 PT-IP Assessment and Plan Start: 10/07/19 17:43 Freq: NEEDED Status: Active Protocol: Document 10/10/19 11:56 AW (Rec: 10/10/19 12:03 AW [id number]) PT Summary Assessment and Plan Summary Impairments Pain,ROM,Strength,Balance, Coordination,Cognition,Bed Mobility,Transfers,Gait, Activity Tolerance Progress Towards Goals Progressing Toward Goals Assessment Summary Pt increased independence with bed mobility. Gait not assessed since he had just returned to chair from walking halls with nursing. 5 Time Sit to Stand time of 15 seconds indicates moderate risk of falls. Goals Bed Mobility Goal Standby Assistance Transfer Goal Standby Assistance,Front Wheeled Walker Gait Goal Standby Assistance,Front Wheel Walker Gait Distance 150 Other Goals up/down 3 steps L rail ascending SBA Days to Meet Goals 8 Frequency of Treatment Frequency Of Treatment Once a Day Treatment Plan Physical Therapy Treatment Plan Bed Mobility Training,Transfer Training,Gait Training, Therapeutic Exercise,Balance Retraining,Post Op Education, Discharge Planning,Hot or Cold Pack,Neuromuscular Re-ed, Coordination Retraining,Manual Therapy Other Recommendations and Next Treatment Assess gait, safety with FWW. Focus Trial stairs. Recommendations To Nursing Amount of Assist Needed 1 Person Assist Discharge Recommendations PT Discharge Recommendations Home with Assistance,Home Health,SNF Rehab Other Discharge Recommendations SNF vs home with 24/7 assist and HH Equipment Needed for Home Before FWW: if not safe with 4WW and Discharge if pt goes home
[2019-10-10] MEDS: ACETAMINOPHEN 325 MG TABLET 650 MG PO ×3 (14:03→23:26)
[2019-10-10] MEDS: OLANZapine ODT 10 MG TAB PO (21:36)
[2019-10-10] MEDS: DOXAZOSIN 4 MG TABLET 8 MG PO (21:36)
[2019-10-11] VITALS: O2SAT 94
[2019-10-11 04:00] VITALS: O2SAT 98
[2019-10-11] MEDS: ACETAMINOPHEN 325 MG TABLET 650 MG PO (05:03)
[2019-10-11 05:29] LABS: BUN Creatinine Ratio 16.2 (6-22); Blood Urea Nitrogen 21 mg/dL (9-20); Calcium 8.6 mg/dL (8.4-10.2); Carbon Dioxide 29 mmol/L (22-32); Chloride 107 mmol/L (98-107); Estimated Glomerular Filt Rate 52.9 mL/min (>60); Glucose 128 mg/dL (80-110); HEMOLYSIS < 15 (0-50); Magnesium 2.3 mg/dL (1.6-2.3); Phosphorous 2.4 mg/dL (2.3-3.7); Potassium 3.6 mmol/L (3.4-5.1); Sodium 142 mmol/L (137-145)
[2019-10-11 05:44] VITALS: BP 163/75; PULSE 64; RESP 18; TEMP 37.5; O2SAT 98
--- NOTE | 2019-10-11 06:57 | PC.NURSE ---
Grajeda catheter removed at 0657 per MD order. Catheter tip intact. No complications with removal.
[2019-10-11 08:00] VITALS: BP 159/83; PULSE 70; RESP 18; TEMP 36.6; O2SAT 97
[2019-10-11] MEDS: ENOXAPARIN 40 MG/0.4 ML SYRINGE SUBCUT (08:25)
[2019-10-11] MEDS: FINASTERIDE 5 MG TABLET PO (08:25)
[2019-10-11] MEDS: POTASSIUM CHLORIDE 20 MEQ/15 ML UDC 40 MEQ PO (09:24)
--- NOTE | 2019-10-11 11:13 | PC.NURSE ---
Discharge: Pt feels ready to d/c home. Vd 150mls and then 75mls, bladder scanned after second void for pvr of 15mls. Minimal pain and denies need of pain med. Tolerates general diet w/out problems. Discussed wound care w/pt and spouse and an extra dressing was given in case it is needed. Reviewed d/c instructions, questions answered. Pt d/c home via auto w/spouse.
--- NOTE | 2019-10-11 11:40 | P.DS_ITS ---
History of Present Illness History of Present Illness Chief complaint: Abdominal pain Narrative: This is an 84-year-old male with a history of abdominal surgery who presents with small-bowel obstruction. Yesterday afternoon he developed abdominal pain and progressive abdominal distention associated with nausea and emesis. He has had no flatus since yesterday. He presented to the emergency room were a nasogastric [address] abdomen pelvis demonstrates a small-bowel obstruction no official read pending at this time but perhaps a transition point in the pelvis on my read. White blood cell count 10, hct 43, Cr 1.4, afebrile hemodynamically stable. He has had 1 prior episode of small- bowel obstruction 1 year ago which failed to resolve with conservative management and he required a laparotomy and lysis of adhesion, and was related to his history of prior open appendectomy. He has had no other abdominal surgeries. 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 Discharge Providers Provider Date of admission: 10/06/19 02:08 Discharge Date: 10/11/19 Consults: 10/06/19 17:59 Consult to Respiratory Therapy Evaluate & Treat Comment: Physician Instructions: Evaluate and treat 10/06/19 21:33 Consult to PERPETUAL INVENTORY CLERK - Measurement Specialist Routine Comment: anticipating poss rehab s/p exlap Consult to Physical Therapy Evaluate & Treat Comment: Walk at least twice daily Physician Instructions: Evaluate and Treat Discharge provider: Jaylen Monreal MD Summary Hospital Course Discharge Diagnosis: small bowel obstruction sp ex lap delerium post operative ileus small bowel resection acute kidney injury Hospital Course: Patient presented with a small-bowel obstruction secondary to adhesion. On admission he was afebrile no fever minimal abdominal pain. We initially attempted for conservative management was made he received a nasogastric 2 and a small-bowel follow-through was conducted. The follow- through demonstrated no transit of contrast into the colon in 8 hours and addition to this he developed white count of 14 and increased abdominal tenderness. With this constellation findings advised him my recommendation to proceed to the operating room for exploratory laparotomy to relieve his bowel obstruction no ensure that he had no compromise of the small bowel. 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 The small bowel stricture had a significantly narrowed lumen and was subsequently resected and repaired side to side. Postoperatively the patient did well he had a slow return of jesse l function and on the date of discharge he has been tolerating a regular diet for 1 day urinating spontaneously ambulatory and close to his baseline. Status at Discharge Cognitive/behavioral status at discharge: oriented Time Spent with Patient Time spent: Greater than 30 minutes Exam Vital Signs (past 8 hours): - 10/11/19 04:00 10/11/19 05:44 10/11/19 08:00 Temperature 99.5 F 97.8 F Pulse Rate 64 70 Respiratory Rate 18 18 Blood Pressure 163/75 H 159/83 H Pulse Oximetry 98 98 97 Oxygen Delivery Method Room Air Oxygen Flow Rate 0 Narrative Exam Narrative: General adult male alert oriented no acute distress Nonlabored respirations Abdomen soft nondistended incision clean dry intact Objective Labs Result Diagrams: 10/09/19 04:54 10/11/19 05:00 Labs: Laboratory Results - last 24 hr 10/11/19 05:00 Sodium 142 Potassium 3.6 Chloride 107 Carbon Dioxide 29 BUN 21 H Creatinine 1.30 H Estimated GFR 52.9 L BUN/Creatinine Ratio 16.2 Glucose 128 H Calcium 8.6 Phosphorus 2.4 D Magnesium 2.3 Discharge Plan Discharge Plan Patient Disposition: Home Discharge orders & Medications Prescriptions: Continued doxazosin 8 MG tablet 8 mg PO BEDTIME Qty: 0 RF: 0 simvastatin 20 MG tablet 20 mg PO BEDTIME Qty: 0 RF: 0 finasteride 5 MG tablet 5 mg PO QDAY Qty: 0 RF: 0 docusate sodium [Colace] 100 mg Capsule 100 mg PO BID RF: 0 aspirin 81 mg Tablet,Chewable 81 mg PO DAILY RF: 0 loratadine 10 mg tablet 10 mg PO DAILY RF: 0 Xarelto 20 mg tablet 20 mg PO BEDTIME RF: 0 acetaminophen 325 mg Tablet 650 mg PO QAM RF: 0 Men 50 Plus Multivitamin 300-600-300 mcg Tablet 1 tab PO DAILY RF: 0 acetaminophen 325 mg Tablet 650 mg PO BEDTIME RF: 0 Ocuvite Adult 50 Plus 250-5-1 mg Capsule 1 cap PO BEDTIME RF: 0 Follow up/Referrals: Jaylen Monreal MD [Physician] - Diet/Activity/Treatments Diet: Regular Activity: No lifting >20 lbs x 6 weeks. Ok to shower do not submerge the wound until follow up Skin/Wound/Dressing Care Report to your healthcare provider any signs of infection, such as:: chills, fever, increased pain and unusual drainage Visit Report/Discharge Packet Instructions: DI for Small Bowel Resection, How to Prevent Falls, [facility]: Wound Care Discharges patient from system. Discharge Date/Time: 10/11/19 11:00 Quality VTE Deep Vein Thrombosis/Pulmonary Embolism Present on Admission: No
== END 2019-10-11 11:00 | disposition home or self-care (01) | DRG 329 ==
LOC: ED 23:47 → AC 10-06 02:08
PROVIDERS: Admitting Provider Surgery; Emergency Provider Emergency Medicine; Visit Provider Surgery
PROC: 0DB80ZZ Excision of Small Intestine, Open Approach (ICD-10-PCS; CPT 49000; principal; 2019-10-06 17:10)
DX: K56.51 Intestinal adhesions [bands], with partial obstruction (principal); G93.41 Metabolic encephalopathy; N17.9 Acute kidney failure, unspecified; E83.42 Hypomagnesemia; K56.7 Ileus, unspecified; E86.0 Dehydration; N40.0 Benign prostatic hyperplasia without lower urinary tract symptoms; R00.1 Bradycardia, unspecified; R33.9 Retention of urine, unspecified; Z95.0 Presence of cardiac pacemaker; Z79.01 Long term (current) use of anticoagulants
CPT/HCPCS: 36415; 74018; 74177; 74250; 80048; 80053; 82962; 83690; 83735; 84100; 85025; 85610; 85730; 86850; 86900; 86901; 93005; 94760; 96361; 96374; 96375; 97116; 97162; 97530; 99283; 99285; J0330; J1170; J1630; J1650; J1940; J2270; J2405; J2543; J2704; J3010; J3480; Q9967

== ENCOUNTER 2022-04-04 09:33 | Emergency (ER) | payer MEDICARE, OTHER, SELFPAY ==
[2019-10-06 02:49] VITALS: BMI 27.0
[2022-04-04] VITALS (13 sets, daily range): BP systolic 168–212; BP diastolic 56–92; PULSE 60–61; RESP 14–20; TEMP 36.4; O2SAT 96–99; BMI 26.2
--- NOTE | 2022-04-04 10:11 | ED_ITS ---
HPI - General Adult General Chief complaint: Abdominal Pain Stated complaint: stomachache, been here before Time Seen by Provider: 04/04/22 09:53 Source: patient Mode of arrival: Ambulatory History of Present Illness HPI narrative: Patient is an 86-year-old male. History of 2 prior small-bowel obstructions. He states that last night he started to have abdominal discomfort. No nausea. Also is having abdominal distention. Had a small hard bowel movement yesterday in the same the day before. He is no longer passing flatus. No fevers. Related Data Home Medications Medication Instructions Recorded Confirmed doxazosin 8 mg tablet 8 mg PO BEDTIME #0 11/03/11 10/19/19 finasteride 5 mg tablet 5 mg PO QDAY #0 11/03/11 10/19/19 simvastatin 20 mg tablet 20 mg PO BEDTIME #0 11/03/11 10/19/19 acetaminophen 325 mg tablet 650 mg PO BEDTIME 10/06/19 10/19/19 acetaminophen 325 mg tablet 650 mg PO QAM 10/06/19 10/19/19 aspirin 81 mg chewable tablet 81 mg PO DAILY 10/06/19 10/19/19 docusate sodium 100 mg capsule 100 mg PO BID 10/06/19 10/19/19 (Colace) loratadine 10 mg tablet 10 mg PO DAILY 10/06/19 10/19/19 rbsxoxzs-nup-gzzib acid 300 1 tab PO DAILY 10/06/19 10/19/19 mcg-lycopene 600 mcg-lutein 300 mcg tablet (Men 50 Plus Multivitamin) rivaroxaban 20 mg tablet (Xarelto) 20 mg PO BEDTIME 10/06/19 10/19/19 vit C,E,zinc,copper-eyepd9i 250 1 cap PO BEDTIME 10/06/19 10/19/19 mg-lutein 5 mg-zeaxanthin 1 mg capsule (Ocuvite Adult 50 Plus) Allergies Allergy/AdvReac Type Severity Reaction Status Date / Time No Known Allergies AdvReac Verified 04/04/22 09:49 Review of Systems Constitutional Constitutional: Reports system reviewed and no additional complaints, except as documented Cardiovascular Cardiovascular: Reports system reviewed and no additional complaints, except as documented Respiratory Respiratory: Reports system reviewed and no additional complaints, except as documented Gastrointestinal Gastrointestinal: Reports as per HPI and Reports system reviewed and no additional complaints, except as documented Genitourinary Genitourinary: Reports system reviewed and no additional complaints, except as documented Integumentary/Breasts Skin/Breast: Reports system reviewed and no additional complaints, except as documented Hematologic/Lymphatic On Anticoagulants: Yes Patient History Medical History (Updated 04/04/22 @ 12:48 by Servando Villatoro DO) BPH (benign prostatic hyperplasia) 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 Hyperlipidemia Pacemaker Presence of arterial stent SBO (small bowel obstruction) Surgical History (Updated 10/07/19 @ 12:02 by Shi Carmona MD) H/O exploratory laparotomy Status post appendectomy Status post cervical spinal fusion Status post lumbar spine operation Family History Other Adopted Social History marital status: household members: spouse Smoking Status: Former smoker alcohol intake: never Smoking Status: Former smoker alcohol intake frequency: 0-2 drinks per day Substance Use Type: does not use Exam Initial Vital Signs Initial Vital Signs: Vital Signs Temperature 97.5 F L 04/04/22 09:49 Pulse Rate 60 04/04/22 09:49 Respiratory Rate 18 04/04/22 09:49 Blood Pressure 197/85 H 04/04/22 09:49 Pulse Oximetry 98 04/04/22 09:49 HENMT Head: normal to inspection and normocephalic Resp Effort & Inspection: normal respiratory effort Auscultation: clear to auscultation bilaterally Cardio Rate: regular rate Rhythm: regular rhythm GI Inspection: distended Palpation: soft and tender Skin General: no rashes or lesions noted Neuro General: patient alert, patient awake and moves all extremities Extrem General: normal to inspection and capillary refill normal Psych Appearance: grossly normal and well kempt Course Orders Ordered: ED Orders 04/04/22 10:07 Complete Blood Count AUTO DIFF Stat Comprehensive Metabolic Panel Stat Lactate (Lactic Acid) Stat Lipase Stat 04/04/22 10:11 CT abdomen pelvis w con Stat Discontinued Medications Sodium Chloride (Normal Saline 0.9%) 1,000 mls @ 125 mls/hr IV CONT MACARIO Last Infusion: 04/04/22 12:55 Dose: 0 mls/hr Documented by: Admin: 04/04/22 10:46 Dose: 125 mls/hr Documented by: ROMEO Vital Signs Vital signs: Vital Signs - 8 hr 04/04/22 10:30 04/04/22 10:31 04/04/22 11:00 Pulse Rate 60 61 60 Respiratory Rate 14 14 14 Blood Pressure 177/78 H Pulse Oximetry 96 96 97 04/04/22 11:01 04/04/22 11:33 04/04/22 11:35 Pulse Rate 60 60 60 Respiratory Rate 14 18 Blood Pressure 179/73 H 212/82 H Pulse Oximetry 96 99 98 04/04/22 12:21 04/04/22 12:23 04/04/22 12:30 Pulse Rate 60 60 60 Respiratory Rate 16 15 Blood Pressure 185/77 H 168/56 H Pulse Oximetry 97 97 96 Medical Decision Making Lab Data Lab results reviewed: Yes I reviewed the patient's lab results. Result diagrams: 04/04/22 10:07 04/04/22 10:07 Labs: Lab Results 04/04/22 04/04/22 04/04/22 Range/Units 10:07 10:07 10:07 WBC 5.8 (4.5-11.0) X10^3/uL RBC 4.23 L (4.5-5.9) X10^6/uL Hgb 12.1 L (13.5-17.5) g/dL Hct 37.4 L (41-53) % MCV 88.4 (80-100) fL MCH 28.6 (26-34) PG MCHC 32.3 (30-36) % RDW 15.2 H (11.6-14.8) % Plt Count 176 (150-400) X10^3/uL Neut % (Auto) 61.3 (50-75) % Lymph % (Auto) 25.7 (25-40) % [place] % (Auto) 8.8 (3-14) % Eos % (Auto) 3.5 (2-4) % Baso % (Auto) 0.7 (0-2) % Neut # (Auto) 3600 (1228-3986) /uL Lymph # (Auto) 1500 (9035-7765) /uL [place] # (Auto) 500 (0-900) /uL Eos # (Auto) 200 (0-450) /uL Baso # (Auto) 0 (0-100) /uL Sodium 139 (137-145) mmol/L Potassium 4.4 (3.4-5.1) mmol/L Chloride 108 H (98-107) mmol/L Carbon Dioxide 25 (22-32) mmol/L BUN 23 H (9-20) mg/dL Creatinine 1.53 H (0.66-1.25) mg/dL Estimated GFR 45 L (>60) mL/min BUN/Creatinine Ratio 15.0 (6-22) Glucose 121 H (80-110) mg/dL Lactate 1.7 (0.7-2.1) mmol/L Calcium 9.3 (8.4-10.2) mg/dL Total Bilirubin 0.3 (0.2-1.3) mg/dL AST 26 (17-59) IU/L ALT 15 (<50) IU/L Alkaline Phosphatase 59 (38-126) U/L Total Protein 8.0 (6.3-8.2) g/dL Albumin 4.7 (3.5-5.0) g/dL Globulin 3.3 (1.7-4.1) g/dL Albumin/Globulin Ratio 1.4 (1.0-2.8) Lipase 127 (23-300) U/L Urine Dip Bedside Urine Glucose Negative Bedside Urine Bilirubin - Negative Bedside Urine Ketone - Negative Urine Specific [place] 1.015 Bedside Urine Occult Blood - Negative Bedside Urine pH 6.0 Bedside Urine Protein - Negative Bedside Urine Urobilinogen - Negative Bedside Urine Nitrite - Negative Bedside Urine Leukocytes - Negative Esterase Point of care testing: Urine Dip Bedside Urine Glucose Negative Bedside Urine Bilirubin - Negative Bedside Urine Ketone - Negative Urine Specific [place] 1.015 Bedside Urine Occult Blood - Negative Bedside Urine pH 6.0 Bedside Urine Protein - Negative Bedside Urine Urobilinogen - Negative Bedside Urine Nitrite - Negative Bedside Urine Leukocytes - Negative Esterase Imaging Data CT scan - abdomen/pelvis: Radiologist's Impression: [address] [address] [address] Scan Report Signed Patient: Denys Myers MR#: [id number] : 1935 Acct:[id number] Age/Sex: 86 / M Date of Service: 04/04/22 Loc: ED Accession Number: [id number] ?? Procedure: CT abdomen pelvis w con Ordering Provider: Servando Villatoro D.O. PROCEDURE:? CT ABDOMEN PELVIS W CON ? INDICATIONS:? ABD pain, hx od SBO ? TECHNIQUE:? After the administration of intravenous contrast, axial sections acquired from the lung bases to the pubic symphysis.? Coronal and sagittal reformats were performed.? For radiation dose reduction, the following was used:? automated exposure control, adjustment of mA and/or kV according to patient size.? ? COMPARISON:? [facility], CT, CT ABDOMEN PELVIS W CON, 10/05/2019, 23:55. ? FINDINGS:? Image quality:? Excellent.? ? Lung bases:? Unremarkable. Heart:? No significant findings. ? ABDOMEN: Liver:? Unremarkable.? ? Gallbladder:? Demonstrates a dependent 6 mm calcification within its lumen.? No gallbladder wall thickening is present.? ? Biliary ducts:? Unremarkable.? ? Pancreas:? Unremarkable.? ? Spleen:? Unremarkable.? ? Adrenal Glands:? Unremarkable.? ? Kidneys and Ureters:? Unremarkable.? ? ? Stomach and Bowel:? Stomach, small bowel loops, and colon are unremarkable.? Appendix is not seen.? No evidence of appendicitis.? Diverticulosis of the descending and sigmoid colon is present with no evidence of acute diverticulitis. Peritoneum:? No abnormal intraperitoneal fluid.? No free air.? ? Ventral Wall: ? No hernias.? Diastasis recti is present. Abdominal Nodes:? No retroperitoneal or mesenteric adenopathy by size criteria.? Vessels:? Aorta and inferior vena cava are normal in size.? ? PELVIS: Pelvic Organs:? Unremarkable.? ? Bladder:? Unremarkable.? ? Pelvic Nodes: No enlarged lymph nodes.? Miscellaneous: No hernias are seen. ? ? ? Bones:? Thoracolumbar fusion hardware is present. ? ? IMPRESSION:? 1. No acute process.? No evidence of bowel obstruction. 2. Cholelithiasis.? No evidence of cholecystitis. 3. Diastasis recti.? ? ? Dictated by: Jose Alejandro Leavitt M.D. on 04/04/2022 at 11:42 ? ? Approved by: Jose Alejandro Leavitt M.D. on 04/04/2022 at 11:44 MDM Narrative Medical decision making narrative: Labs are unremarkable. CT scan does not show any signs of acute pathology. Signs of bowel obstruction. Patient states that actually since he arrived here in the emergency department in lead down his pain has greatly improved. Urinalysis does not show any signs of a urinary tract infection. No indication for antibiotics. No indication for surgical consultation. No indication for admission in the hospital. I did discuss the CT scan findings with the patient and his at bedside. He was given return precautions and follow-up instructions. He expressed understanding and agreement. Discharge Plan Departure Patient Disposition: Home Clinical Impression: Abdominal pain Instructions: DI for Abdominal Pain-Adult Activity Restrictions/Additional Instructions: The CT scans today do not show any signs of a bowel obstruction. I do recommend that you start on a stool softener like we discussed. Contact your primary doctor for a follow-up. Return to the emergency department for any new or worsening symptoms. Prescriptions: No Action doxazosin 8 MG tablet 8 mg PO BEDTIME Qty: 0 0RF simvastatin 20 MG tablet 20 mg PO BEDTIME Qty: 0 0RF finasteride 5 MG tablet 5 mg PO QDAY Qty: 0 0RF docusate sodium [Colace] 100 mg Capsule 100 mg PO BID 0RF aspirin 81 mg Tablet,Chewable 81 mg PO DAILY 0RF loratadine 10 mg tablet 10 mg PO DAILY 0RF Xarelto 20 mg tablet 20 mg PO BEDTIME 0RF acetaminophen 325 mg Tablet 650 mg PO QAM 0RF Men 50 Plus Multivitamin 300-600-300 mcg Tablet 1 tab PO DAILY 0RF acetaminophen 325 mg Tablet 650 mg PO BEDTIME 0RF Ocuvite Adult 50 Plus 250-5-1 mg Capsule 1 cap PO BEDTIME 0RF
--- NOTE | 2022-04-04 10:11 | DI.CT.S_ITS ---
PROCEDURE: CT ABDOMEN PELVIS W CON INDICATIONS: ABD pain, hx od SBO TECHNIQUE: After the administration of intravenous contrast, axial sections acquired from the lung bases to the pubic symphysis. Coronal and sagittal reformats were performed. For radiation dose reduction, the following was used: automated exposure control, adjustment of mA and/or kV according to patient size. COMPARISON: [facility], CT, CT ABDOMEN PELVIS W CON, 10/05/2019, 23:55. FINDINGS: Image quality: Excellent. Lung bases: Unremarkable. Heart: No significant findings. ABDOMEN: Liver: Unremarkable. Gallbladder: Demonstrates a dependent 6 mm calcification within its lumen. No gallbladder wall thickening is present. Biliary ducts: Unremarkable. Pancreas: Unremarkable. Spleen: Unremarkable. Adrenal Glands: Unremarkable. Kidneys and Ureters: Unremarkable. Stomach and Bowel: Stomach, small bowel loops, and colon are unremarkable. Appendix is not seen. No evidence of appendicitis. Diverticulosis of the descending and sigmoid colon is present with no evidence of acute diverticulitis. Peritoneum: No abnormal intraperitoneal fluid. No free air. Ventral Wall: No hernias. Diastasis recti is present. Abdominal Nodes: No retroperitoneal or mesenteric adenopathy by size criteria. Vessels: Aorta and inferior vena cava are normal in size. PELVIS: Pelvic Organs: Unremarkable. Bladder: Unremarkable. Pelvic Nodes: No enlarged lymph nodes. Miscellaneous: No hernias are seen. Bones: Thoracolumbar fusion hardware is present. IMPRESSION: 1. No acute process. No evidence of bowel obstruction. 2. Cholelithiasis. No evidence of cholecystitis. 3. Diastasis recti. Dictated by: Jose Alejandro Leavitt M.D. on 04/04/2022 at 11:42 Approved by: Jose Alejandro Leavitt M.D. on 04/04/2022 at 11:44
[2022-04-04 10:30] LABS: Add Manual Diff / Slide Review NO; Basophils Absolute Auto 0 /uL (0-100); Basophils Percent Auto 0.7 % (0-2); Eosinophils Absolute Auto 200 /uL (0-450); Eosinophils Percent Auto 3.5 % (2-4); Hematocrit 37.4 % (41-53); Hemoglobin 12.1 g/dL (13.5-17.5); Lymphocytes Absolute Auto 1500 /uL (1100-4500); Lymphocytes Percent Auto 25.7 % (25-40); Mean Corpuscular HGB Conc 32.3 % (30-36); Mean Corpuscular Hemoglobin 28.6 PG (26-34); Mean Corpuscular Volume 88.4 fL (80-100); Monocytes Absolute Auto 500 /uL (0-900); Monocytes Percent Auto 8.8 % (3-14); Neutrophils Absolute Auto 3600 /uL (1500-7000); Neutrophils Percent Auto 61.3 % (50-75); Platelet Count 176 X10^3/uL (150-400); Red Blood Cell Count 4.23 X10^6/uL (4.5-5.9); Red Cell Distribution Width 15.2 % (11.6-14.8); White Blood Cell Count 5.8 X10^3/uL (4.5-11.0)
[2022-04-04] MEDS: SODIUM CHLORIDE 0.9% 1,000 ML 125 ML IV (10:46)
[2022-04-04 10:57] LABS: Alanine Aminotransferase 15 IU/L (<50); Albumin 4.7 g/dL (3.5-5.0); Albumin Globulin Ratio 1.4 (1.0-2.8); Alkaline Phosphatase 59 U/L (38-126); Aspartate Aminotransferase 26 IU/L (17-59); Bilirubin Total 0.3 mg/dL (0.2-1.3); Blood Urea Nitrogen 23 mg/dL (9-20); Calcium 9.3 mg/dL (8.4-10.2); Carbon Dioxide 25 mmol/L (22-32); Chloride 108 mmol/L (98-107); Estimated Glomerular Filt Rate 45 mL/min (>60); Globulin 3.3 g/dL (1.7-4.1); Glucose 121 mg/dL (80-110); HEMOLYSIS 19 (0-50); Lipase 127 U/L (23-300); Potassium 4.4 mmol/L (3.4-5.1); Sodium 139 mmol/L (137-145)
[2022-04-04 10:58] LABS: Lactate (Lactic Acid) 1.7 mmol/L (0.7-2.1)
== END 2022-04-04 12:57 | disposition home or self-care (01) ==
PROVIDERS: Emergency Provider Emergency Medicine
DX: R10.9 Unspecified abdominal pain (principal)
CPT/HCPCS: 36415; 74177; 80053; 81003; 83605; 83690; 85025; 99284